=== PATIENT | male | born 1980 | race Caucasian/White ===

== ENCOUNTER → 2021-02-01 14:36 | Outpatient (CLI) | payer OTHER, SELFPAY | PROVIDERS: Visit Provider Family Medicine | DX: E11.621 Type 2 diabetes mellitus with foot ulcer (principal); L97.512 Non-pressure chronic ulcer of other part of right foot with fat layer exposed; L97.511 Non-pressure chronic ulcer of other part of right foot limited to breakdown of skin; L97.521 Non-pressure chronic ulcer of other part of left foot limited to breakdown of skin; I87.2 Venous insufficiency (chronic) (peripheral); L97.321 Non-pressure chronic ulcer of left ankle limited to breakdown of skin; L08.9 Local infection of the skin and subcutaneous tissue, unspecified; F17.200 Nicotine dependence, unspecified, uncomplicated; F11.20 Opioid dependence, uncomplicated; Z79.4 Long term (current) use of insulin | CPT/HCPCS: 11042; 17250; 87070; 87075; 87077; 87186; 87205; 99204; 99214 ==

== ENCOUNTER → 2021-02-05 13:28 | Outpatient (CLI) | payer OTHER, SELFPAY | PROVIDERS: Visit Provider Family Medicine | DX: I87.2 Venous insufficiency (chronic) (peripheral) (principal); L97.511 Non-pressure chronic ulcer of other part of right foot limited to breakdown of skin; L97.321 Non-pressure chronic ulcer of left ankle limited to breakdown of skin; L97.521 Non-pressure chronic ulcer of other part of left foot limited to breakdown of skin | CPT/HCPCS: 29580 ==

== ENCOUNTER → 2021-02-12 13:53 | Outpatient (CLI) | payer OTHER, SELFPAY | PROVIDERS: Referring Provider Emergency Medicine; Visit Provider Family Medicine | DX: E11.621 Type 2 diabetes mellitus with foot ulcer (principal); L97.511 Non-pressure chronic ulcer of other part of right foot limited to breakdown of skin; L97.512 Non-pressure chronic ulcer of other part of right foot with fat layer exposed; L97.321 Non-pressure chronic ulcer of left ankle limited to breakdown of skin; L97.521 Non-pressure chronic ulcer of other part of left foot limited to breakdown of skin; I87.2 Venous insufficiency (chronic) (peripheral); L08.9 Local infection of the skin and subcutaneous tissue, unspecified; E11.40 Type 2 diabetes mellitus with diabetic neuropathy, unspecified; F11.20 Opioid dependence, uncomplicated; Z79.2 Long term (current) use of antibiotics; Z68.45 Body mass index [BMI] 70 or greater, adult; F17.200 Nicotine dependence, unspecified, uncomplicated | CPT/HCPCS: 11042; 99214 ==

== ENCOUNTER → 2021-02-19 10:10 | Outpatient (CLI) | payer OTHER, SELFPAY | PROVIDERS: Referring Provider Surgery; Visit Provider Family Medicine | DX: E11.621 Type 2 diabetes mellitus with foot ulcer (principal); L97.512 Non-pressure chronic ulcer of other part of right foot with fat layer exposed; L97.511 Non-pressure chronic ulcer of other part of right foot limited to breakdown of skin; L97.521 Non-pressure chronic ulcer of other part of left foot limited to breakdown of skin; I87.2 Venous insufficiency (chronic) (peripheral); L08.9 Local infection of the skin and subcutaneous tissue, unspecified; F11.20 Opioid dependence, uncomplicated; Z72.0 Tobacco use; R94.31 Abnormal electrocardiogram [ECG] [EKG]; I45.81 Long QT syndrome | CPT/HCPCS: 11042; 87070; 87075; 87077; 87205; 99214 ==

== ENCOUNTER → 2021-02-26 10:55 | Outpatient (CLI) | payer OTHER, SELFPAY | PROVIDERS: Referring Provider Emergency Medicine; Visit Provider Family Medicine | DX: E11.621 Type 2 diabetes mellitus with foot ulcer (principal); L97.512 Non-pressure chronic ulcer of other part of right foot with fat layer exposed; L97.511 Non-pressure chronic ulcer of other part of right foot limited to breakdown of skin; L97.521 Non-pressure chronic ulcer of other part of left foot limited to breakdown of skin; I87.2 Venous insufficiency (chronic) (peripheral); L97.321 Non-pressure chronic ulcer of left ankle limited to breakdown of skin; L08.9 Local infection of the skin and subcutaneous tissue, unspecified; F11.20 Opioid dependence, uncomplicated; R60.0 Localized edema; R94.31 Abnormal electrocardiogram [ECG] [EKG]; I45.81 Long QT syndrome; B37.2 Candidiasis of skin and nail; F17.200 Nicotine dependence, unspecified, uncomplicated | CPT/HCPCS: 11042; 87070; 87075; 87077; 87147; 87185; 87186; 87205; 99214 ==

== ENCOUNTER → 2021-03-06 13:29 | Outpatient (CLI) | payer OTHER, SELFPAY | PROVIDERS: Referring Provider Nurse Practitioner; Visit Provider Family Medicine | DX: E11.621 Type 2 diabetes mellitus with foot ulcer (principal); L97.512 Non-pressure chronic ulcer of other part of right foot with fat layer exposed; L97.511 Non-pressure chronic ulcer of other part of right foot limited to breakdown of skin; L97.521 Non-pressure chronic ulcer of other part of left foot limited to breakdown of skin; E11.40 Type 2 diabetes mellitus with diabetic neuropathy, unspecified; I87.2 Venous insufficiency (chronic) (peripheral); L97.321 Non-pressure chronic ulcer of left ankle limited to breakdown of skin; R60.0 Localized edema; I89.0 Lymphedema, not elsewhere classified; L08.9 Local infection of the skin and subcutaneous tissue, unspecified; B37.2 Candidiasis of skin and nail; B95.7 Other staphylococcus as the cause of diseases classified elsewhere; B95.2 Enterococcus as the cause of diseases classified elsewhere; E66.01 Morbid (severe) obesity due to excess calories; I45.81 Long QT syndrome; F12.90 Cannabis use, unspecified, uncomplicated; Z72.0 Tobacco use; Z79.4 Long term (current) use of insulin; Z68.42 Body mass index [BMI] 45.0-49.9, adult | CPT/HCPCS: 11042; 97597; 99213; 99214 ==

== ENCOUNTER → 2021-03-15 12:18 | Outpatient (CLI) | payer OTHER, SELFPAY | PROVIDERS: Referring Provider Nurse Practitioner; Visit Provider Family Medicine | DX: E11.621 Type 2 diabetes mellitus with foot ulcer (principal); L97.512 Non-pressure chronic ulcer of other part of right foot with fat layer exposed; L97.511 Non-pressure chronic ulcer of other part of right foot limited to breakdown of skin; L97.521 Non-pressure chronic ulcer of other part of left foot limited to breakdown of skin; E11.40 Type 2 diabetes mellitus with diabetic neuropathy, unspecified; I87.2 Venous insufficiency (chronic) (peripheral); L97.321 Non-pressure chronic ulcer of left ankle limited to breakdown of skin; R60.0 Localized edema; I89.0 Lymphedema, not elsewhere classified; B37.2 Candidiasis of skin and nail; E66.01 Morbid (severe) obesity due to excess calories; I45.81 Long QT syndrome; F12.90 Cannabis use, unspecified, uncomplicated; Z72.0 Tobacco use; Z79.4 Long term (current) use of insulin; Z79.891 Long term (current) use of opiate analgesic; Z68.42 Body mass index [BMI] 45.0-49.9, adult | CPT/HCPCS: 11042; 11045; 87070; 87075; 87077; 87186; 87205; 97607 ==

== ENCOUNTER 2021-03-20 04:59 | Inpatient (IN) | payer MEDICAID, SELFPAY ==
[2021-03-20 05:17] VITALS: BP 174/79; PULSE 97; RESP 18; TEMP 36.5; O2SAT 97; BMI 44.9
--- NOTE | 2021-03-20 05:26 | ED.GENADULT ---
HPI - General Adult <Aubree Rodriguez MD - Last Filed: 03/21/21 07:33> General Chief complaint: Extremity Problem,Nontraumatic Stated complaint: redness/swollen/hot on left leg since sat Time Seen by Provider: 03/20/21 05:14 Source: patient Mode of arrival: Ambulatory Limitations: no limitations History of Present Illness HPI narrative: 41-year-old gentleman with a complicated medical history consisting of type 2 diabetes on insulin, recurrent cellulitis lower extremities with chronic venous stasis changes currently has a wound VAC in place on his right leg and venous stasis ulcer on his left leg and is anticipating venous surgery in April of this year. He has had recurrent episodes of cellulitis and at the end of January was treated with a course of Levaquin 2 weeks later amoxicillin and doxycycline and 2 days ago was started on cefdinir. He has had 1 full day of cefdinir and notes that he is having increasing pain swelling and redness in the left thigh. He reports this was what happened on the right side that led to the severe wound currently being treated with a wound VAC. he reports that his blood sugars actually have been doing well over the past week with all sugars under 200. He is currently being followed by Dr. Nicholson at the wound care clinic. His primary care physician is Dr. Young at the residency clinic in [place]. Related Data Home Medications Medication Instructions Recorded Confirmed empagliflozin 25 mg tablet 25 mg PO DAILY 03/20/21 03/20/21 (Jardiance) insulin glargine 100 unit/mL (3 40 unit SUBCUT BID 03/20/21 03/20/21 mL) subcutaneous pen (Lantus Solostar U-100 Insulin) lisinopril 20 mg tablet 20 mg PO DAILY 03/20/21 03/20/21 metformin 1,000 mg tablet 1,000 mg PO DAILY 03/20/21 03/20/21 methadone 10 mg tablet 115 mg PO DAILY 03/20/21 03/20/21 topiramate 25 mg tablet 50 mg PO DAILY 03/20/21 03/20/21 Allergies Allergy/AdvReac Type Severity Reaction Status Date / Time iodine Allergy Verified 03/20/21 05:22 Review of Systems <Aubree Rodriguez MD - Last Filed: 03/21/21 07:33> Review of Systems Narrative: Pertinent positive and negative findings as per HPI Remainder of review of systems is otherwise unremarkable for Constitutional: Fevers, chills, weakness ENT: No sore throat, neck pain, ear pain CV: Chest pain, palpitations, Respiratory: Cough, wheeze, dyspnea GI: Nausea, vomiting, diarrhea, : Dysuria, hematuria, Patient History <Aubree Rodriguez MD - Last Filed: 03/21/21 07:33> Medical History (Updated 03/20/21 @ 18:53 by Alissa Gentile MD) Chronic venous hypertension with ulcer Chronic, continuous use of opioids Obesity Type 2 diabetes mellitus Family History (Updated 03/20/21 @ 18:55 by Alissa Gentile MD) Mother Breast cancer Father Diabetes mellitus Social History household members: other Smoking Status: Current every day smoker alcohol intake: former Smoking Status: Current every day smoker alcohol intake frequency: 0-2 drinks per day Substance Use Type: does not use Exam <Aubree Rodriguez MD - Last Filed: 03/21/21 07:33> Narrative Exam Narrative: General: Chronically ill-appearing but in no acute distress. Morbidly obese. HEENT: Moist mucous membranes, normal sclera with reactive pupils, Neck: No JVD, supple Respiratory: Lungs are clear to auscultation, no wheezing no rales no rhonchi. Full and symmetrical air movement Cardiac: Regular rate and rhythm no murmurs no bruits Abdomen: Soft, nontender, good bowel tones, no flank pain Skin: Expanding erythema with painful swelling in the left thigh. Neurologic: Grossly neurologically intact with no obvious asymmetries or abnormalities Extremities: No trauma, well perfusedChronic venous stasis changes bilaterally with wound care wrappings both lower extremities and compression sock on the left lower extremity. Psych: Cooperative, appropriate insight and affect Initial Vital Signs Initial Vital Signs: Vital Signs Temperature 97.7 F 03/20/21 05:17 Pulse Rate 97 H 03/20/21 05:17 Respiratory Rate 18 03/20/21 05:17 Blood Pressure 174/79 H 03/20/21 05:17 Pulse Oximetry 97 03/20/21 05:17 <Ute Perez DO - Last Filed: 03/20/21 18:46> Initial Vital Signs Initial Vital Signs: Vital Signs Temperature 97.7 F 03/20/21 05:17 Pulse Rate 97 H 03/20/21 05:17 Respiratory Rate 18 03/20/21 05:17 Blood Pressure 174/79 H 03/20/21 05:17 Pulse Oximetry 97 03/20/21 05:17 Course <Aubree Rodriguez MD - Last Filed: 03/21/21 07:33> Orders Ordered: Acetaminophen (Acetaminophen 325 Mg Tablet) 650 mg PO Q6HR PRN PRN Reason: Fever/Mild Pain (1-3) Last Admin: 03/20/21 23:53 Dose: 650 mg Documented by: LADY Al Hydrox/Mg Hydrox/Simethicone (Mag Hydrox/Alum/Simeth 30 Ml Udc) 30 ml PO Q6HR PRN PRN Reason: Dyspepsia Bisacodyl (Bisacodyl 10 Mg Supp) 10 mg MO DAILY PRN PRN Reason: Constipation Dextrose (Dextrose 50 % In Water 25 Gm/50 Ml Syringe) 25 gm IV PRN PRN PRN Reason: Hypoglycemia Docusate Sodium (Docusate 100 Mg Capsule) 100 mg PO BID [facility] Last Admin: 03/20/21 20:59 Dose: Not Given Documented by: PALMER Enoxaparin Sodium (Enoxaparin 40 Mg/0.4 Ml Syringe) 40 mg SUBCUT DAILY [facility] Lactated Ringer's (Lactated Ringers) 1,000 mls @ 100 mls/hr IV CONT [facility] Last Admin: 03/20/21 17:14 Dose: 100 mls/hr Documented by: PALMER Ceftriaxone Sodium 2,000 mg/ (Sodium Chloride) 100 mls @ 200 mls/hr IV Q24H [facility] Insulin Glargine (Insulin Glargine 100 Unit/Ml 3ml Pen) 40 unit SUBCUT BID [facility] Last Admin: 03/20/21 21:00 Dose: 40 unit Documented by: PALMER Cosigned by: ERIC Insulin Human Lispro (Insulin Lispro 100 Unit/Ml 3ml Vial) 0 unit SUBCUT [facility]; Protocol Lisinopril (Lisinopril 20 Mg Tablet) 20 mg PO DAILY [facility] Magnesium Hydroxide (Magnesium Hydroxide 30 Ml Udc) 30 ml PO DAILY PRN PRN Reason: Constipation Metformin HCl (Metformin Hcl 500 Mg Tablet) 1,000 mg PO 0800 [facility] Methadone HCl (Methadone 10 Mg Tablet) 115 mg PO DAILY [facility] Naloxone HCl (Naloxone 0.4 Mg/Ml Vial) 0.2 mg IV Q2MIN PRN PRN Reason: Opiate Reversal Ondansetron HCl (Ondansetron 4 Mg/2 Ml Inj) 4 mg IV Q8HR PRN PRN Reason: Nausea And Vomiting Topiramate (Topiramate 25 Mg Tablet) 50 mg PO DAILY AMANDA Discontinued Medications Ceftriaxone Sodium 2,000 mg/ (Sodium Chloride) 100 mls @ 200 mls/hr IV NOW ONE Stop: 03/20/21 05:37 Last Infusion: 03/20/21 07:19 Dose: 0 mls/hr Documented by: Admin: 03/20/21 06:37 Dose: 200 mls/hr Documented by: BABITA Methadone HCl (Methadone 5 Mg Tablet) 115 mg PO NOW ONE Stop: 03/20/21 07:44 Last Admin: 03/20/21 08:41 Dose: 115 mg Documented by: GINA Vital Signs Vital signs: Vital Signs - 8 hr 03/20/21 05:17 Temperature 97.7 F Pulse Rate 97 H Respiratory Rate 18 Blood Pressure 174/79 H Pulse Oximetry 97 <Ute Perez, - Last Filed: 03/20/21 18:46> Orders Ordered: Acetaminophen (Acetaminophen 325 Mg Tablet) 650 mg PO Q6HR PRN PRN Reason: Fever/Mild Pain (1-3) Last Admin: 03/20/21 23:53 Dose: 650 mg Documented by: LADY Al Hydrox/Mg Hydrox/Simethicone (Mag Hydrox/Alum/Simeth 30 Ml Udc) 30 ml PO Q6HR PRN PRN Reason: Dyspepsia Bisacodyl (Bisacodyl 10 Mg Supp) 10 mg MO DAILY PRN PRN Reason: Constipation Dextrose (Dextrose 50 % In Water 25 Gm/50 Ml Syringe) 25 gm IV PRN PRN PRN Reason: Hypoglycemia Docusate Sodium (Docusate 100 Mg Capsule) 100 mg PO BID [facility] Last Admin: 03/20/21 20:59 Dose: Not Given Documented by: PALMER Enoxaparin Sodium (Enoxaparin 40 Mg/0.4 Ml Syringe) 40 mg SUBCUT DAILY AMANDA Lactated Ringer's (Lactated Ringers) 1,000 mls @ 100 mls/hr IV CONT AMANDA Last Admin: 03/20/21 17:14 Dose: 100 mls/hr Documented by: PALMER Ceftriaxone Sodium 2,000 mg/ (Sodium Chloride) 100 mls @ 200 mls/hr IV Q24H [facility] Insulin Glargine (Insulin Glargine 100 Unit/Ml 3ml Pen) 40 unit SUBCUT BID AMANDA Last Admin: 03/20/21 21:00 Dose: 40 unit Documented by: PALMER Cosigned by: ERIC Insulin Human Lispro (Insulin Lispro 100 Unit/Ml 3ml Vial) 0 unit SUBCUT ACHS AMANDA; Protocol Lisinopril (Lisinopril 20 Mg Tablet) 20 mg PO DAILY [facility] Magnesium Hydroxide (Magnesium Hydroxide 30 Ml Udc) 30 ml PO DAILY PRN PRN Reason: Constipation Metformin HCl (Metformin Hcl 500 Mg Tablet) 1,000 mg PO 0800 AMANDA Methadone HCl (Methadone 10 Mg Tablet) 115 mg PO DAILY [facility] Naloxone HCl (Naloxone 0.4 Mg/Ml Vial) 0.2 mg IV Q2MIN PRN PRN Reason: Opiate Reversal Ondansetron HCl (Ondansetron 4 Mg/2 Ml Inj) 4 mg IV Q8HR PRN PRN Reason: Nausea And Vomiting Topiramate (Topiramate 25 Mg Tablet) 50 mg PO DAILY [facility] Discontinued Medications Ceftriaxone Sodium 2,000 mg/ (Sodium Chloride) 100 mls @ 200 mls/hr IV NOW ONE Stop: 03/20/21 05:37 Last Infusion: 03/20/21 07:19 Dose: 0 mls/hr Documented by: Admin: 03/20/21 06:37 Dose: 200 mls/hr Documented by: BABITA Methadone HCl (Methadone 5 Mg Tablet) 115 mg PO NOW ONE Stop: 03/20/21 07:44 Last Admin: 03/20/21 08:41 Dose: 115 mg Documented by: GINA Vital Signs Vital signs: Vital Signs - 8 hr 03/20/21 05:17 Temperature 97.7 F Pulse Rate 97 H Respiratory Rate 18 Blood Pressure 174/79 H Pulse Oximetry 97 Medical Decision Making <Aubree Rodriguez MD - Last Filed: 03/21/21 07:33> Lab Data Lab results narrative: Deep culture of his right-sided lower extremity wound from January 29, 2021 shows E coli that is resistant to ampicillin intermediately resistant to ampicillin sulbactam and resistant to trimethoprim sulfamethoxazole. Sensitive to all others including ceftriaxone ciprofloxacin Zosyn gentamicin ertapenem and meropenem. Result diagrams: 03/20/21 17:30 03/20/21 17:30 Labs: Lab Results 03/20/21 03/20/21 03/20/21 Range/Units 05:40 05:40 05:40 WBC 4.5 (4.5-11.0) X10^3/uL RBC 3.75 L (4.5-5.9) X10^6/uL Hgb 10.1 L (13.5-17.5) g/dL Hct 30.8 L (41-53) % MCV 82.3 (80-100) fL MCH 26.9 (26-34) PG MCHC 32.8 (30-36) % RDW 16.0 H (11.6-14.8) % Plt Count 119 L (150-400) X10^3/uL Neut % (Auto) 69.5 (50-75) % Lymph % (Auto) 18.0 L (25-40) % Collier % (Auto) 11.0 (3-14) % Eos % (Auto) 1.1 L (2-4) % Baso % (Auto) 0.4 (0-2) % Neut # (Auto) 3100 (5745-1690) /uL Lymph # (Auto) 800 L (2929-7223) /uL Collier # (Auto) 500 (0-900) /uL Eos # (Auto) 0 (0-450) /uL Baso # (Auto) 0 (0-100) /uL Sodium 136 L (137-145) mmol/L Potassium 3.6 (3.4-5.1) mmol/L Chloride 103 (98-107) mmol/L Carbon Dioxide 25 (22-32) mmol/L BUN 16 (9-20) mg/dL Creatinine 0.59 L (0.66-1.25) mg/dL Estimated GFR > 60.0 (>60) mL/min BUN/Creatinine Ratio 27.1 H (6-22) Glucose 155 H (70-100) mg/dL Lactate 1.4 (0.7-2.1) mmol/L Calcium 9.0 (8.4-10.2) mg/dL Magnesium (1.6-2.3) mg/dL Total Bilirubin 0.9 (0.2-1.3) mg/dL AST 45 (17-59) IU/L ALT 43 (<50) IU/L Alkaline Phosphatase 116 (38-126) U/L Total Protein 7.7 (6.3-8.2) g/dL Albumin 3.6 (3.5-5.0) g/dL Globulin 4.1 (1.7-4.1) g/dL Albumin/Globulin Ratio 0.9 L (1.0-2.8) SARS-CoV-2 (PCR) (Negative) 03/20/21 03/20/21 Range/Units 05:40 07:45 WBC (4.5-11.0) X10^3/uL RBC (4.5-5.9) X10^6/uL Hgb (13.5-17.5) g/dL Hct (41-53) % MCV (80-100) fL MCH (26-34) PG MCHC (30-36) % RDW (11.6-14.8) % Plt Count (150-400) X10^3/uL Neut % (Auto) (50-75) % Lymph % (Auto) (25-40) % Collier % (Auto) (3-14) % Eos % (Auto) (2-4) % Baso % (Auto) (0-2) % Neut # (Auto) (6315-3806) /uL Lymph # (Auto) (2641-2591) /uL Collier # (Auto) (0-900) /uL Eos # (Auto) (0-450) /uL Baso # (Auto) (0-100) /uL Sodium (137-145) mmol/L Potassium (3.4-5.1) mmol/L Chloride (98-107) mmol/L Carbon Dioxide (22-32) mmol/L BUN (9-20) mg/dL Creatinine (0.66-1.25) mg/dL Estimated GFR (>60) mL/min BUN/Creatinine Ratio (6-22) Glucose (70-100) mg/dL Lactate (0.7-2.1) mmol/L Calcium (8.4-10.2) mg/dL Magnesium 1.7 (1.6-2.3) mg/dL Total Bilirubin (0.2-1.3) mg/dL AST (17-59) IU/L ALT (<50) IU/L Alkaline Phosphatase (38-126) U/L Total Protein (6.3-8.2) g/dL Albumin (3.5-5.0) g/dL Globulin (1.7-4.1) g/dL Albumin/Globulin Ratio (1.0-2.8) SARS-CoV-2 (PCR) Negative (Negative) <Ute Perez, DO - Last Filed: 03/20/21 18:46> Lab Data Labs: Lab Results 03/20/21 03/20/21 03/20/21 Range/Units 05:40 05:40 05:40 WBC 4.5 (4.5-11.0) X10^3/uL RBC 3.75 L (4.5-5.9) X10^6/uL Hgb 10.1 L (13.5-17.5) g/dL Hct 30.8 L (41-53) % MCV 82.3 (80-100) fL MCH 26.9 (26-34) PG MCHC 32.8 (30-36) % RDW 16.0 H (11.6-14.8) % Plt Count 119 L (150-400) X10^3/uL Neut % (Auto) 69.5 (50-75) % Lymph % (Auto) 18.0 L (25-40) % Collier % (Auto) 11.0 (3-14) % Eos % (Auto) 1.1 L (2-4) % Baso % (Auto) 0.4 (0-2) % Neut # (Auto) 3100 (0709-0639) /uL Lymph # (Auto) 800 L (7127-4292) /uL Collier # (Auto) 500 (0-900) /uL Eos # (Auto) 0 (0-450) /uL Baso # (Auto) 0 (0-100) /uL Sodium 136 L (137-145) mmol/L Potassium 3.6 (3.4-5.1) mmol/L Chloride 103 (98-107) mmol/L Carbon Dioxide 25 (22-32) mmol/L BUN 16 (9-20) mg/dL Creatinine 0.59 L (0.66-1.25) mg/dL Estimated GFR > 60.0 (>60) mL/min BUN/Creatinine Ratio 27.1 H (6-22) Glucose 155 H (70-100) mg/dL Lactate 1.4 (0.7-2.1) mmol/L Calcium 9.0 (8.4-10.2) mg/dL Magnesium (1.6-2.3) mg/dL Total Bilirubin 0.9 (0.2-1.3) mg/dL AST 45 (17-59) IU/L ALT 43 (<50) IU/L Alkaline Phosphatase 116 (38-126) U/L Total Protein 7.7 (6.3-8.2) g/dL Albumin 3.6 (3.5-5.0) g/dL Globulin 4.1 (1.7-4.1) g/dL Albumin/Globulin Ratio 0.9 L (1.0-2.8) SARS-CoV-2 (PCR) (Negative) 03/20/21 03/20/21 Range/Units 05:40 07:45 WBC (4.5-11.0) X10^3/uL RBC (4.5-5.9) X10^6/uL Hgb (13.5-17.5) g/dL Hct (41-53) % MCV (80-100) fL MCH (26-34) PG MCHC (30-36) % RDW (11.6-14.8) % Plt Count (150-400) X10^3/uL Neut % (Auto) (50-75) % Lymph % (Auto) (25-40) % Collier % (Auto) (3-14) % Eos % (Auto) (2-4) % Baso % (Auto) (0-2) % Neut # (Auto) (8090-2540) /uL Lymph # (Auto) (2550-3374) /uL Collier # (Auto) (0-900) /uL Eos # (Auto) (0-450) /uL Baso # (Auto) (0-100) /uL Sodium (137-145) mmol/L Potassium (3.4-5.1) mmol/L Chloride (98-107) mmol/L Carbon Dioxide (22-32) mmol/L BUN (9-20) mg/dL Creatinine (0.66-1.25) mg/dL Estimated GFR (>60) mL/min BUN/Creatinine Ratio (6-22) Glucose (70-100) mg/dL Lactate (0.7-2.1) mmol/L Calcium (8.4-10.2) mg/dL Magnesium 1.7 (1.6-2.3) mg/dL Total Bilirubin (0.2-1.3) mg/dL AST (17-59) IU/L ALT (<50) IU/L Alkaline Phosphatase (38-126) U/L Total Protein (6.3-8.2) g/dL Albumin (3.5-5.0) g/dL Globulin (1.7-4.1) g/dL Albumin/Globulin Ratio (1.0-2.8) SARS-CoV-2 (PCR) Negative (Negative) MDM Narrative Medical decision making narrative: I received sign-out from Dr. Austin, I have seen evaluated patient myself. He is resting comfortably. He has chronic ongoing wounds in both lower extremities right leg has wound VAC left heel there is a blister toes are covered in bandages. Left thigh is erythematous almost circumferential. He required admission to the hospital with IV antibiotics in July. He has history of drug-resistant bacteria, insulin-dependent diabetes, hypertension, chronic hepatitis-C chronic opiate use and liver cirrhosis. He is followed by wound care I believe here in [place] but unable to access those records. Left thigh is the new infection that is quite erythematous. Started 2 days ago and got significantly worse very quickly. He has 1 full day of cefdinir but was previously on multiple antibiotics. He is at high risk for worsening infection and drug resistance. He does not meet severe sepsis criteria he has no leukocytosis or fever. He is given his daily dose of methadone of 115 mg, now resting comfortably. Patient is admitted to Dr. gentile. Discharge Plan Departure Patient Disposition: Admitted As Inpatient Clinical Impression: Cellulitis Qualifiers: Site of cellulitis: extremity Site of cellulitis of extremity: lower extremity Laterality: left Qualified Code(s): L03.116 - Cellulitis of left lower limb Admit Date/Time: 03/20/21 09:23 Admit Provider: Alissa Gentile
[2021-03-20 05:57] LABS: Add Manual Diff / Slide Review NO; Basophils Absolute Auto 0 /uL (0-100); Basophils Percent Auto 0.4 % (0-2); Eosinophils Absolute Auto 0 /uL (0-450); Eosinophils Percent Auto 1.1 % (2-4); Hematocrit 30.8 % (41-53); Hemoglobin 10.1 g/dL (13.5-17.5); Lymphocytes Absolute Auto 800 /uL (1100-4500); Mean Corpuscular HGB Conc 32.8 % (30-36); Mean Corpuscular Hemoglobin 26.9 PG (26-34); Mean Corpuscular Volume 82.3 fL (80-100); Monocytes Absolute Auto 500 /uL (0-900); Neutrophils Absolute Auto 3100 /uL (1500-7000); Neutrophils Percent Auto 69.5 % (50-75); Platelet Count 119 X10^3/uL (150-400); Red Blood Cell Count 3.75 X10^6/uL (4.5-5.9); White Blood Cell Count 4.5 X10^3/uL (4.5-11.0)
[2021-03-20 06:01] LABS: Lactate (Lactic Acid) 1.4 mmol/L (0.7-2.1); Magnesium 1.7 mg/dL (1.6-2.3)
[2021-03-20 06:02] LABS: Alanine Aminotransferase 43 IU/L (<50); Albumin 3.6 g/dL (3.5-5.0); Albumin Globulin Ratio 0.9 (1.0-2.8); Alkaline Phosphatase 116 U/L (38-126); Aspartate Aminotransferase 45 IU/L (17-59); BUN Creatinine Ratio 27.1 (6-22); Bilirubin Total 0.9 mg/dL (0.2-1.3); Blood Urea Nitrogen 16 mg/dL (9-20); Carbon Dioxide 25 mmol/L (22-32); Chloride 103 mmol/L (98-107); Estimated Glomerular Filt Rate > 60.0 mL/min (>60); Globulin 4.1 g/dL (1.7-4.1); Glucose 155 mg/dL (70-100); HEMOLYSIS < 15 (0-50); Potassium 3.6 mmol/L (3.4-5.1); Sodium 136 mmol/L (137-145); Total Protein 7.7 g/dL (6.3-8.2)
[2021-03-20] MEDS: cefTRIAXone 2,000 MG in SODIUM CHLORIDE 0.9% 100 ML 200 ML IV (06:37)
[2021-03-20 08:41] LABS: COVID19 - ADMIT (NP swab/PCR) Negative (Negative)
[2021-03-20] MEDS: METHADONE 5 MG TABLET 115 MG PO (08:41)
[2021-03-20 10:28] VITALS: BP 141/68; PULSE 80; RESP 16; O2SAT 96
--- NOTE | 2021-03-20 11:29 | PC.NURSE ---
Addendum entered by Magi Nieto R.N. 03/20/21 11:41: Call light in reach. Calm and cooperative with care. Original Note: Day shift: Pt on AC unit from ED at approx 1130. He is A&Ox4. VS WNL. RA 98%. RLE has woundV-vac set up and is wrapped w/ Curlex. Dressings on bilat toes. LLE at foot/ankle area has dressing on it as well. Pt reports that he goes to the wound clinic once per week. Left upper thigh area is red. Pt reports that this looks a little better already. Oriented to room and call light. Denies any nausea or chest pain. Call light in rech.
[2021-03-20 11:30] VITALS: BP 134/75; PULSE 86; RESP 18; TEMP 36.1; O2SAT 99
--- NOTE | 2021-03-20 11:52 | DIET.CONS ---
Dietary Consultation Note RD Note: Kitchen sending ONS Lamberto bid to support wound healing in this pt who attends wound care at .
[2021-03-20 12:32] VITALS: BMI 44.9
--- NOTE | 2021-03-20 14:12 | PC.NURSE ---
Took patients bloodsugar at around 12:00 and it was 145
[2021-03-20 16:45] VITALS: BP 119/70; PULSE 83; RESP 17; TEMP 36.7; O2SAT 99
[2021-03-20] MEDS: LACTATED RINGERS 1,000 ML 100 ML IV (17:14)
[2021-03-20 17:36] LABS: Add Manual Diff / Slide Review NO; Basophils Absolute Auto 0 /uL (0-100); Basophils Percent Auto 0.4 % (0-2); Eosinophils Absolute Auto 100 /uL (0-450); Hematocrit 31.5 % (41-53); Hemoglobin 10.4 g/dL (13.5-17.5); Lymphocytes Absolute Auto 900 /uL (1100-4500); Lymphocytes Percent Auto 15.2 % (25-40); Mean Corpuscular HGB Conc 33.2 % (30-36); Mean Corpuscular Hemoglobin 27.2 PG (26-34); Monocytes Absolute Auto 700 /uL (0-900); Monocytes Percent Auto 12.7 % (3-14); Neutrophils Absolute Auto 4100 /uL (1500-7000); Neutrophils Percent Auto 70.7 % (50-75); Platelet Count 124 X10^3/uL (150-400); Red Blood Cell Count 3.84 X10^6/uL (4.5-5.9); Red Cell Distribution Width 15.7 % (11.6-14.8); White Blood Cell Count 5.7 X10^3/uL (4.5-11.0)
--- NOTE | 2021-03-20 17:43 | PC.NURSE ---
Changed dressing on L foot/ankle as previous dressing was falling off. Used sterile water to flush wounds and applied allevyn dressing and compression sock over it.
[2021-03-20 17:52] LABS: BUN Creatinine Ratio 23.3 (6-22); Blood Urea Nitrogen 14 mg/dL (9-20); Calcium 8.8 mg/dL (8.4-10.2); Carbon Dioxide 29 mmol/L (22-32); Chloride 100 mmol/L (98-107); Estimated Glomerular Filt Rate > 60.0 mL/min (>60); Glucose 118 mg/dL (70-100); HEMOLYSIS < 15 (0-50); Potassium 3.9 mmol/L (3.4-5.1); Sodium 135 mmol/L (137-145)
[2021-03-20 18:06] LABS: Cholesterol 115 mg/dL (140-199); HDL Cholesterol 20 mg/dL (40-60); LDL Cholesterol Calculated 60 mg/dL (<100); Triglycerides 175 mg/dL (35-150)
--- NOTE | 2021-03-20 18:51 | P.HP_ITS ---
History of Present Illness History of Present Illness Chief complaint: redness/swollen/hot on left leg since sat Narrative: Shaka Kaiser is a 41-year-old male with type 2 diabetes, hypertension, opiate dependence who has chronic lower extremity ulcers and multiple wounds. He is currently being followed by Dr. schmidt at the wound can not. The patient has a left malleolar ulcer which has been followed and cultured. He was given antibiotics to be started on Friday. Patient notes that he developed swelling redness and warmth of the left thigh. He noted that the redness and warmth go progressively worse despite taking antibiotics. As he has had multiple infections the patient presented to the emergency room for evaluation. In the emergency room the patient was found to have a significant area of erythema on the upper thigh trachea seeing up the thigh which was warm and tender. He has had no fever. No nausea no vomiting. He has no shortness of breath. The patient has a little boot on the right lower extremity with a wound VAC for chronic ulcer on the right leg. He currently has a left malleolar ulcer as well which is improving. Patient was admitted to the hospital for progressive cellulitis. Patient History Medical History (Updated 03/20/21 @ 18:53 by Alissa Gentile MD) Chronic venous hypertension with ulcer Chronic, continuous use of opioids Obesity Type 2 diabetes mellitus Family & Social History Family History (Updated 03/20/21 @ 18:54 by Alissa Gentile MD) Mother Breast cancer Father Diabetes mellitus Social History: household members other Prior Living Arrangements Apartment/Condo Safety & Behavioral: Feels Safe in Current Yes Environment Been Physically Hurt or No Threatened By a Person Suicidal Ideation Description None Suicide Plan Description No Plan Tobacco & Substance use: Tobacco type cigarettes Smoking Status Current every day smoker Smoking packs per day 0.25 alcohol intake former alcohol intake frequency other Substance Use Type does not use Meds Home Medications and Allergies Home Medications Medication Instructions Recorded Confirmed Type empagliflozin 25 mg tablet 25 mg PO DAILY 03/20/21 03/20/21 History (Jardiance) insulin glargine 100 unit/mL (3 40 unit SUBCUT BID 03/20/21 03/20/21 History mL) subcutaneous pen (Lantus Solostar U-100 Insulin) lisinopril 20 mg tablet 20 mg PO DAILY 03/20/21 03/20/21 History metformin 1,000 mg tablet 1,000 mg PO DAILY 03/20/21 03/20/21 History methadone 10 mg tablet 115 mg PO DAILY 03/20/21 03/20/21 History topiramate 25 mg tablet 50 mg PO DAILY 03/20/21 03/20/21 History Allergies Allergy/AdvReac Type Severity Reaction Status Date / Time iodine Allergy Verified 03/20/21 05:22 Review of Systems Review of Systems Narrative: 10 point review of systems is negative Exam Vital Signs (past 8 hours): - 03/20/21 11:30 03/20/21 16:45 Temperature 97.0 F L 98.1 F Pulse Rate 86 83 Respiratory Rate 18 17 Blood Pressure 134/75 119/70 Pulse Oximetry 99 99 Oxygen Delivery Method Room Air Narrative Exam Narrative: pleasant male resting comfortably in no obvious distress HENIL Other: normocephalic atraumatic, extraocular muscles are intact, oropharynx is clear, neck is supple without adenopathy Resp Other: lungs: Clear to auscultation Cardio Other: cardiac exam: Regular rate and rhythm normal S1-S2 GI Other: abdomen: Soft nontender nondistended Neuro Other: neuro exam neuro exam is nonfocal Extrem Other: extremities: Right lower extremity with Unna boot in place, wound VAC in place as well, left lower extremity with a left malleolar ulcer, the left thigh with a large area of cellulitis from the mid thigh on the medial portion and lateral portion warm tender and tracing upward Objective Labs Result Diagrams: 03/20/21 17:30 03/20/21 17:30 Labs: Laboratory Results - last 24 hr 03/20/21 03/20/21 03/20/21 05:40 05:40 05:40 WBC 4.5 RBC 3.75 L Hgb 10.1 L Hct 30.8 L MCV 82.3 MCH 26.9 MCHC 32.8 RDW 16.0 H Plt Count 119 L Neut % (Auto) 69.5 Lymph % (Auto) 18.0 L [place] % (Auto) 11.0 Eos % (Auto) 1.1 L Baso % (Auto) 0.4 Neut # (Auto) 3100 Lymph # (Auto) 800 L [place] # (Auto) 500 Eos # (Auto) 0 Baso # (Auto) 0 Sodium 136 L Potassium 3.6 Chloride 103 Carbon Dioxide 25 BUN 16 Creatinine 0.59 L Estimated GFR > 60.0 BUN/Creatinine Ratio 27.1 H Glucose 155 H Lactate 1.4 Calcium 9.0 Magnesium Total Bilirubin 0.9 AST 45 ALT 43 Alkaline Phosphatase 116 Total Protein 7.7 Albumin 3.6 Globulin 4.1 Albumin/Globulin Ratio 0.9 L Triglycerides Cholesterol LDL Cholesterol, Calc HDL Cholesterol SARS-CoV-2 (PCR) 03/20/21 03/20/21 03/20/21 05:40 07:45 17:30 WBC 5.7 RBC 3.84 L Hgb 10.4 L Hct 31.5 L MCV 82.0 MCH 27.2 MCHC 33.2 RDW 15.7 H Plt Count 124 L Neut % (Auto) 70.7 Lymph % (Auto) 15.2 L [place] % (Auto) 12.7 Eos % (Auto) 1.0 L Baso % (Auto) 0.4 Neut # (Auto) 4100 Lymph # (Auto) 900 L [place] # (Auto) 700 Eos # (Auto) 100 Baso # (Auto) 0 Sodium Potassium Chloride Carbon Dioxide BUN Creatinine Estimated GFR BUN/Creatinine Ratio Glucose Lactate Calcium Magnesium 1.7 Total Bilirubin AST ALT Alkaline Phosphatase Total Protein Albumin Globulin Albumin/Globulin Ratio Triglycerides Cholesterol LDL Cholesterol, Calc HDL Cholesterol SARS-CoV-2 (PCR) Negative 03/20/21 03/20/21 17:30 17:30 WBC RBC Hgb Hct MCV MCH MCHC RDW Plt Count Neut % (Auto) Lymph % (Auto) [place] % (Auto) Eos % (Auto) Baso % (Auto) Neut # (Auto) Lymph # (Auto) [place] # (Auto) Eos # (Auto) Baso # (Auto) Sodium 135 L Potassium 3.9 Chloride 100 Carbon Dioxide 29 BUN 14 Creatinine 0.60 L Estimated GFR > 60.0 BUN/Creatinine Ratio 23.3 H Glucose 118 H Lactate Calcium 8.8 Magnesium Total Bilirubin AST ALT Alkaline Phosphatase Total Protein Albumin Globulin Albumin/Globulin Ratio Triglycerides 175 H Cholesterol 115 L LDL Cholesterol, Calc 60 HDL Cholesterol 20 L SARS-CoV-2 (PCR) Assessment & Plan Assessment & Plan narrative: impression 1. 41-year-old male admitted to the hospital with acute cellulitis - patient has multiple risk factors including type 2 diabetes and chronic ve nous stasis insufficiency - he has multiple ulcerations of his lower extremities including a right lower extremity toe ulcer with a wound VAC in place an-d a little boot in place patient also has a left malleolar ulcer with a dressing in place as well - patient developed significant rapidly progressi ve left thigh cellulitis - continue IV antibiotics, given wound cultures will start ceftriaxone - will follow daily labs 2. type 2 diabetes - will continue his usual Lantus and metformin - patient to take his own Jardiance - will add sliding scale insulin as well 3. hypertension - continue lisinopril 4. chronic opiate dependent - continue methadone patient will be placed on DVT prophylaxis patient reports he is a full code, his mother is his surrogate decision maker patient will be admitted as an inpatient
[2021-03-20 20:45] VITALS: BP 129/57; PULSE 82; RESP 18; TEMP 36.2; O2SAT 96
[2021-03-20] MEDS: INSULIN GLARGINE 100 UNIT/ML 3ML PEN 40 UNIT SUBCUT (21:00)
--- NOTE | 2021-03-20 21:26 | PC.NURSE ---
Patient is getting blood sugars ACHS and only has lantus ordered, no sliding scale. Informed BUBBA Flowers that he does not have sliding scale ordered. Patient's blood sugar this evening was 136 and did receive his lantus of 40 units.
[2021-03-20] MEDS: ACETAMINOPHEN 325 MG TABLET 650 MG PO (23:53)
[2021-03-21] VITALS (7 sets, daily range): BP systolic 120–144; BP diastolic 52–84; PULSE 81–94; RESP 16–19; TEMP 36.1–36.9; O2SAT 96–97
--- NOTE | 2021-03-21 06:52 | PC.NURSE ---
223 Pt is indep in room, IV SL per pt request. Taking PO without difficulties. LE with multiple areas of weeping, dressings in place per skin documentation. Enc to elevate while in bed. Medicated with APAP for 5/10 discomfort. Indep to BR. Urinal at bedside. Toe dressings CDI, reports weekly changes done with wound clinic. Pt elevating LLE as able. Erythema receeded into border drawn on previous shift. Call light in reach.
[2021-03-21] MEDS: cefTRIAXone 2,000 MG in SODIUM CHLORIDE 0.9% 100 ML 200 ML IV (08:14)
[2021-03-21] MEDS: INSULIN LISPRO 100 UNIT/ML 3ML VIAL SUBCUT ×2 (08:26→12:15)
[2021-03-21] MEDS: lisinopriL 20 MG TABLET PO (08:27)
[2021-03-21] MEDS: DOCUSATE 100 MG CAPSULE PO (08:27)
[2021-03-21] MEDS: METHADONE 10 MG TABLET 115 MG PO (08:27)
[2021-03-21] MEDS: METFORMIN HCL 500 MG TABLET 1000 MG PO (08:27)
[2021-03-21] MEDS: TOPIRAMATE 25 MG TABLET 50 MG PO (08:28)
[2021-03-21] MEDS: INSULIN GLARGINE 100 UNIT/ML 3ML PEN 40 UNIT SUBCUT ×2 (08:29→21:35)
--- NOTE | 2021-03-21 14:41 | CM.DANOTE ---
DCP assessment: 41 YR old male who admitted for multiple leg wounds and thigh cellulites. CM met with patient briefly at bedside and explained role. patient was alert and oriented x4 at time of CM visit. patient is Independent at base line and drives... currently not driving due to wound vac and ulcers on legs and feet. patient currently is having ulcerations and wounds managed by Dr. schmidt. Patient has had a few failed OP ABX treatments and currently has wound vac on leg. Patient does not use any DME currently and is ambulating independently in hospital room. I [facility] and medicaid Plan: DC home with OP wound care continuing and Poss IV abx vrs PO ABX.... may need help with getting appointments started again with wound care prior to DC but does not currently have any DC planning needs at this time... IF patient is DC with IV abx will need that set up with either the infusion center or [facility] for OP IV therapy... but depends on if patient will need IV abx or can DC on PO. Tamica Ramirez RN, BSN Discharge Planning/Care Management Discharge Assessment Start: 03/21/21 14:35 Freq: Status: Active Protocol: Document 03/21/21 14:35 HS (Rec: 03/21/21 14:41 HS [id number]) Discharge Planning Assessment Assigned Vocational Rehabilitation Counselor Tamica Ramirez RN DPOA/Assigned Designee Name Katalina Huertas (mother) Contact Information [phone] Advance Directives? 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 Independent with ADL's Yes Is patient alert and oriented? Yes Caregiver for Another No Barriers to Discharge No Discharge Plan Home [facility] Wound Care Additional Comment [place] has multiple wounds that are being managed by Dr Saroj Godwin Updated in Patient Room with Yes name and ext. # of Vocational Rehabilitation Counselor Review Status In Process Next Review Type Continued Stay Review
--- NOTE | 2021-03-21 14:45 | P.PN_ITS ---
Subjective Subjective Interval history: 41-year-old male with type 2 diabetes admitted to the hospital for left lower extremity cellulitis. Patient has had improvement of his cellulitis. He continues to have some redness warmth and pain. Exam Vital Signs (past 8 hours): - 03/21/21 08:00 03/21/21 08:27 03/21/21 12:00 Temperature 97.0 F L 97.0 F L Pulse Rate 81 81 88 Respiratory Rate 17 19 Blood Pressure 137/64 137/64 126/73 Pulse Oximetry 96 97 Oxygen Delivery Method Room Air Oxygen Flow Rate 0 Narrative Exam Narrative: Pleasant gentleman in no obvious distress Resp Other: Lungs clear to auscultation Cardio Other: Cardiac exam: Regular rate and rhythm normal S1-S2 GI Other: Abdomen soft nontender nondistended Skin Other: Skin: Left thigh with decreasing erythema, some induration on the lateral aspect of the left thigh, redness on the right medial aspect, there is some warmth, induration, and tenderness, no fluctuance. It is slightly improved from yesterday Extrem Other: Right lower extremity and Unna boot, with a wound VAC in place, left malleolus with dressing in place Objective Labs Result Diagrams: 03/20/21 17:30 03/20/21 17:30 Labs: Laboratory Results - last 24 hr 03/20/21 03/20/21 03/20/21 17:30 17:30 17:30 WBC 5.7 RBC 3.84 L Hgb 10.4 L Hct 31.5 L MCV 82.0 MCH 27.2 MCHC 33.2 RDW 15.7 H Plt Count 124 L Neut % (Auto) 70.7 Lymph % (Auto) 15.2 L [place] % (Auto) 12.7 Eos % (Auto) 1.0 L Baso % (Auto) 0.4 Neut # (Auto) 4100 Lymph # (Auto) 900 L [place] # (Auto) 700 Eos # (Auto) 100 Baso # (Auto) 0 Sodium 135 L Potassium 3.9 Chloride 100 Carbon Dioxide 29 BUN 14 Creatinine 0.60 L Estimated GFR > 60.0 BUN/Creatinine Ratio 23.3 H Glucose 118 H Calcium 8.8 Triglycerides 175 H Cholesterol 115 L LDL Cholesterol, Calc 60 HDL Cholesterol 20 L [facility] Medical History (Updated 03/20/21 @ 18:53 by Alissa Gentile MD) Chronic venous hypertension with ulcer Chronic, continuous use of opioids Obesity Type 2 diabetes mellitus Family History (Updated 03/20/21 @ 18:55 by Alissa Gentile MD) Mother Breast cancer Father Diabetes mellitus Social History household members: other Smoking Status: Current every day smoker alcohol intake: former Assessment & Plan Assessment & Plan narrative: 41-year-old male admitted to the hospital with acute cellulitis - patient has multiple risk factors including type 2 diabetes and chronic venous stasis insufficiency - he has multiple ulcerations of his lower extremities including a right lower extremity toe ulcer with a wound ?VAC ?in place an-d a little boot in place patient also has a left malleolar ulcer with a dressing in place as well - patient developed significant rapidly progressive left thigh cellulitis - continue IV antibiotics, given wound cultures will start ceftriaxone - will follow daily labs -left leg improving, will continue IV antibiotics for now, if further decrease in the area and induration of the left leg consider switching to oral antibiotics tomorrow. -patient has chronic lower extremity ulcerations, is currently followed by the wound care with Dr. Lees, he has an appointment tomorrow with Dr. Dumont for wound dressing change. 2.? type 2 diabetes - will continue his usual Lantus and metformin - patient to take his own Jardiance - will add sliding scale insulin as well 3.? hypertension - continue lisinopril 4.? chronic opiate dependent - continue methadone ?patient will be placed on DVT prophylaxis Time Spent With Patient Critical Care time: I spent a total of [] minutes of critical care time on this patient's care today; this time is exclusive of procedural time.
[2021-03-21] MEDS: ACETAMINOPHEN 325 MG TABLET 650 MG PO (19:09)
[2021-03-22] VITALS (7 sets, daily range): BP systolic 107–131; BP diastolic 60–69; PULSE 70–85; RESP 16–20; TEMP 35.8–36.9; O2SAT 95–100
[2021-03-22] MEDS: ACETAMINOPHEN 325 MG TABLET 650 MG PO (01:16)
--- NOTE | 2021-03-22 03:16 | PC.NURSE ---
Pt A and O x 4, VSS. Pt states he feels he is having a reaction to the cefalazolin and wants to be on vancomycin again. He c/o pain 01/27 and took 650 mg APAP with some relief. Pt has been awake all noc shift on his computer. NO GI or issues and S1, S2. LS clear. Advised patient I would pass along request to change ABOs.
[2021-03-22] MEDS: cefTRIAXone 2,000 MG in SODIUM CHLORIDE 0.9% 100 ML 200 ML IV (06:07)
[2021-03-22] MEDS: lisinopriL 20 MG TABLET PO (08:07)
[2021-03-22] MEDS: METHADONE 10 MG TABLET 115 MG PO (08:07)
[2021-03-22] MEDS: TOPIRAMATE 25 MG TABLET 50 MG PO (08:07)
[2021-03-22] MEDS: METFORMIN HCL 500 MG TABLET 1000 MG PO (08:07)
[2021-03-22] MEDS: INSULIN GLARGINE 100 UNIT/ML 3ML PEN 40 UNIT SUBCUT ×2 (09:14→20:03)
[2021-03-22] MEDS: INSULIN LISPRO 100 UNIT/ML 3ML VIAL SUBCUT (12:10)
--- NOTE | 2021-03-22 16:39 | PC.NURSE ---
Spoke to Evan at wound care to discuss patient. Dressing changed on medial left ankle and superior right foot. Placed hydrablue and alleven placed to the right foot and alleven to the left ankle. Pt to call wound care clinic on Friday to follow up with Dr. Dumont.
--- NOTE | 2021-03-22 17:46 | PM.PN.1 ---
Subjective Subjective Date Patient Seen: 03/22/21 Time Patient Seen: 08:45 Interval history: 41-year-old male with type 2 diabetes admitted to the hospital for left lower extremity cellulitis. No substancial improvement today in swelling. Based on prior cultures daptomycin was added. Currently without fever, chest pain, nausea, vomiting, diarrhea. Exam Vital Signs (past 8 hours): - 03/22/21 12:00 03/22/21 16:00 Temperature 97.1 F L 96.4 F L Pulse Rate 84 78 Respiratory Rate 18 19 Blood Pressure 112/61 131/67 Pulse Oximetry 95 98 Oxygen Delivery Method Room Air Oxygen Flow Rate 0 Narrative Exam Narrative: Gen: Pleasant gentleman in no obvious distress Resp Other:?Lungs clear to auscultation Cardio Other:?Cardiac exam: Regular rate and rhythm normal S1-S2 GI Other:?Abdomen soft nontender nondistended Skin Other:?Skin:? Left thigh with stable erythema from prior areas of demarcation. Extrem Other:?Right lower extremity and Unna boot, with a wound VAC in place, left malleolus with dressing in place Objective Labs Result Diagrams: 03/20/21 17:30 03/20/21 17:30 COUNTS INCLUDE 234 BEDS AT THE [facility] Medical History (Updated 03/20/21 @ 18:53 by Alissa Gentile MD) Chronic venous hypertension with ulcer Chronic, continuous use of opioids Obesity Type 2 diabetes mellitus Family History (Updated 03/20/21 @ 18:55 by Alissa Gentile MD) Mother Breast cancer Father Diabetes mellitus Social History household members: other Smoking Status: Current every day smoker alcohol intake: former Assessment & Plan Assessment & Plan narrative: 1. acute cellulitis - patient has multiple risk factors including type 2 diabetes and chronic venous stasis insufficiency - he has multiple ulcerations of his lower extremities including a right lower extremity toe ulcer with a wound?VAC?in place an-d a little boot in place patient also has a left malleolar ulcer with a dressing in place as well - patient developed significant rapidly progressive left thigh cellulitis initially, stable on initial antibiotics, but added daptomycin today based on prior wound cultures as no siginificant improvement today. - will follow daily labs -patient has chronic lower extremity ulcerations, is currently followed by the wound care with Dr. Dumont 2.? type 2 diabetes - will continue his usual Lantus and metformin - patient to take his own Jardiance - will add sliding scale insulin as well 3.? hypertension - continue lisinopril 4.? chronic opiate dependent - continue methadone Code: Full DVT: lovenox daily COVID-19 COVID-19 status: Negative Time Spent With Patient Critical Care time: I spent a total of [] minutes of critical care time on this patient's care today; this time is exclusive of procedural time.
[2021-03-22] MEDS: DOCUSATE 100 MG CAPSULE PO (20:02)
[2021-03-23] VITALS: BP 125/61; PULSE 83; RESP 16; TEMP 36.3; O2SAT 100
[2021-03-23] MEDS: ACETAMINOPHEN 325 MG TABLET 650 MG PO ×2 (00:40→10:26)
[2021-03-23 04:00] VITALS: BP 111/57; PULSE 79; RESP 16; TEMP 36.1; O2SAT 99
[2021-03-23] MEDS: cefTRIAXone 2,000 MG in SODIUM CHLORIDE 0.9% 100 ML 200 ML IV (06:22)
[2021-03-23 07:55] VITALS: BP 91/38; PULSE 68; RESP 16; TEMP 36.1; O2SAT 97
[2021-03-23] MEDS: METHADONE 10 MG TABLET 115 MG PO (10:23)
[2021-03-23] MEDS: DOCUSATE 100 MG CAPSULE PO ×2 (10:28→20:54)
[2021-03-23] MEDS: TOPIRAMATE 25 MG TABLET 50 MG PO (10:28)
[2021-03-23] MEDS: METFORMIN HCL 500 MG TABLET 1000 MG PO (10:30)
[2021-03-23 12:10] VITALS: BP 117/63; PULSE 79; RESP 16; TEMP 36.6; O2SAT 97
[2021-03-23] MEDS: INSULIN LISPRO 100 UNIT/ML 3ML VIAL SUBCUT (13:12)
[2021-03-23 15:28] VITALS: BP 117/70; PULSE 74; RESP 20; TEMP 35.8
--- NOTE | 2021-03-23 15:34 | P.PN_ITS ---
Subjective Subjective Date Patient Seen: 03/23/21 Time Patient Seen: 15:35 Interval history: 41-year-old male with type 2 diabetes admitted to the hospital for left lower extremity cellulitis. No substancial improvement today in swelling. Based on prior cultures daptomycin was added yesterday. Currently without fever, chest pain, nausea, vomiting, diarrhea. Exam Vital Signs (past 8 hours): - 03/23/21 07:55 03/23/21 12:10 03/23/21 15:28 Temperature 96.9 F L 97.8 F 96.5 F L Pulse Rate 68 79 74 Respiratory Rate 16 16 20 Blood Pressure 91/38 L 117/63 117/70 Pulse Oximetry 97 97 Oxygen Delivery Method Room Air Oxygen Flow Rate 96 Narrative Exam Narrative: Gen: Pleasant gentleman in no obvious distress Resp Other:?Lungs clear to auscultation Cardio Other:?Cardiac exam: Regular rate and rhythm normal S1-S2 GI Other:?Abdomen soft nontender nondistended Skin Other:?Skin:? Left thigh with stable erythema from prior areas of demarcation. Extrem Other:?Right lower extremity and Unna boot, left malleolus with dressing in place Objective Labs Result Diagrams: 03/20/21 17:30 03/20/21 17:30 [facility] Medical History (Updated 03/20/21 @ 18:53 by Alissa Gentile MD) Chronic venous hypertension with ulcer Chronic, continuous use of opioids Obesity Type 2 diabetes mellitus Family History (Updated 03/20/21 @ 18:55 by Alissa Gentile MD) Mother Breast cancer Father Diabetes mellitus Social History household members: other Smoking Status: Current every day smoker alcohol intake: former Assessment & Plan Assessment & Plan narrative: 1. acute cellulitis - patient has multiple risk factors including type 2 diabetes and chronic venous stasis insufficiency - he has multiple ulcerations of his lower extremities including a right lower extremity toe ulcer with a wound?VAC?in place an-d a little boot in place patient also has a left malleolar ulcer with a dressing in place as well - patient developed significant rapidly progressive left thigh cellulitis initially, stable on initial antibiotics, but added daptomycin based on prior wound cultures as no siginificant improvement. -patient has chronic lower extremity ulcerations, is currently followed by the wound care with Dr. Dumont -consider repeat imaging tomorrow if no further improvement. check esr and crp. if markedly increased consider MRI to evaluate for possible osteomyelitis 2.? type 2 diabetes - will continue his usual Lantus and metformin - patient to take his own Jardiance - will add sliding scale insulin as well 3.? hypertension - continue lisinopril 4.? chronic opiate dependent - continue methadone Code: Full DVT: lovenox daily Time Spent With Patient Critical Care time: I spent a total of [] minutes of critical care time on this patient's care today; this time is exclusive of procedural time.
--- NOTE | 2021-03-23 15:58 | DIET.CONS ---
Dietary Consultation Note Admission Date: 03/20/2021 09:23 Assessment: 41 y/o M with T2DM and cellulitis of LE. States he was scheduled to see his initial DM ed visit this week at [facility]. Plans to reschedule after d/c. Not forth coming about DM dx or BG readings at home. Reports difficulty with stress management impacting his blood sugars. FBG reviewed with nursing and in range. RD cannot find recent HgA1c and pt not sure of recent labs. PO 75-100%. Pt amenable to Lamberto BID Ht: 187.96 cm Wt: 160 kg BMI: 44.9 UBW: Last BM: 03/22/21 (03/22/21 14:00) MNA: 14 Jerry Score: 21 Diet: 03/20/21 Lunch Carbohydrate Consistent Diet Diet Modifications: Iodine allergy Safety Tray needed?: No Carbohydrate level: Medium (3 CHO) Bedtime snack: Yes 03/20/21 Dinner Carbohydrate Consistent Diet Diet Modifications: Carbohydrate level: Large (4 CHO) Bedtime snack: Yes Percent of last meal consumed (last 48h) Percent Meal Consumed 100% 03/23/21 09:21 Percent Meal Consumed 75% 03/22/21 13:30 Percent Meal Consumed 100% 03/22/21 10:04 Percent Meal Consumed 100% 03/21/21 17:55 Labs: RBC 3.84 X10^6/uL (4.5-5.9) L 03/20/21 17:30 Hgb 10.4 g/dL (13.5-17.5) L 03/20/21 17:30 Hct 31.5 % (41-53) L 03/20/21 17:30 Creatinine 0.60 mg/dL (0.66-1.25) L 03/20/21 17:30 Lactate 1.4 mmol/L (0.7-2.1) 03/20/21 05:40 Nutrition Diagnosis: Increased nutrient needs r/t cellulitis of LE aeb diagnosis Interventions: 1. Diabetes education stress and BG 2. Lamberto BID Monitoring/Evaluations: BG, Lamberto tolerance
[2021-03-23 20:06] VITALS: BP 131/72; PULSE 74; RESP 20; TEMP 35.7; O2SAT 99
[2021-03-23] MEDS: INSULIN GLARGINE 100 UNIT/ML 3ML PEN 40 UNIT SUBCUT (20:53)
[2021-03-24] VITALS (7 sets, daily range): BP systolic 111–134; BP diastolic 54–78; PULSE 69–77; RESP 12–20; TEMP 36.2–36.7; O2SAT 94–99
[2021-03-24 05:13] LABS: Add Manual Diff / Slide Review NO; Basophils Absolute Auto 100 /uL (0-100); Basophils Percent Auto 1.4 % (0-2); Eosinophils Absolute Auto 100 /uL (0-450); Hemoglobin 10.1 g/dL (13.5-17.5); Lymphocytes Absolute Auto 1000 /uL (1100-4500); Lymphocytes Percent Auto 23.2 % (25-40); Mean Corpuscular HGB Conc 32.6 % (30-36); Mean Corpuscular Volume 82.9 fL (80-100); Monocytes Absolute Auto 400 /uL (0-900); Monocytes Percent Auto 8.2 % (3-14); Neutrophils Absolute Auto 2800 /uL (1500-7000); Neutrophils Percent Auto 65.2 % (50-75); Platelet Count 182 X10^3/uL (150-400); Red Blood Cell Count 3.74 X10^6/uL (4.5-5.9); Red Cell Distribution Width 15.8 % (11.6-14.8); White Blood Cell Count 4.4 X10^3/uL (4.5-11.0)
[2021-03-24 05:25] LABS: BUN Creatinine Ratio 29.1 (6-22); Blood Urea Nitrogen 16 mg/dL (9-20); Carbon Dioxide 29 mmol/L (22-32); Chloride 105 mmol/L (98-107); Estimated Glomerular Filt Rate > 60.0 mL/min (>60); Glucose 121 mg/dL (70-100); HEMOLYSIS < 15 (0-50); Potassium 4.5 mmol/L (3.4-5.1); Sodium 139 mmol/L (137-145)
[2021-03-24 05:26] LABS: C-Reactive Protein Quant 4.3 mg/dL (<1.0)
[2021-03-24 06:19] LABS: Erythrocyte Sedimentation Rate > 140 MM/HR (0-15)
[2021-03-24] MEDS: lisinopriL 20 MG TABLET PO (07:37)
[2021-03-24] MEDS: TOPIRAMATE 25 MG TABLET 50 MG PO (07:37)
[2021-03-24] MEDS: cefTRIAXone 2,000 MG in SODIUM CHLORIDE 0.9% 100 ML 200 ML IV (07:38)
[2021-03-24] MEDS: DOCUSATE 100 MG CAPSULE PO (07:38)
[2021-03-24] MEDS: METFORMIN HCL 500 MG TABLET 1000 MG PO (07:57)
[2021-03-24] MEDS: METHADONE 10 MG TABLET 115 MG PO (08:57)
[2021-03-24] MEDS: INSULIN LISPRO 100 UNIT/ML 3ML VIAL SUBCUT ×4 (08:58→20:43)
[2021-03-24] MEDS: INSULIN GLARGINE 100 UNIT/ML 3ML PEN 40 UNIT SUBCUT ×2 (09:00→20:43)
--- NOTE | 2021-03-24 10:36 | DI.MRI.S_ITS ---
PROCEDURE: MR FOOT LT WO/W CON INDICATIONS: evaluate for osteomyelitis TECHNIQUE: Noncontrast sagittal T1 spin echo and T2 fast spin echo with fat saturation, long-axis T1 spin echo and T2 fast spin echo with fat saturation; short-axis T1 spin echo, proton density fast spin echo, and T2 fast spin echo with fat saturation through the forefoot. Post-contrast short axis, long axis, and sagittal T1 spin echo with fat saturation through the forefoot. COMPARISON: None. FINDINGS: Image quality: This examination is limited by involuntary motion artifact. In this patient with this given history, scrutiny is given to the 2nd toe. On these images, no definite abnormal signal can be seen of the bone marrow of the 2nd toe or the other visualized bones. No definite abnormal bone marrow enhancement can be seen. A chronic appearing cleft can be seen involving the proximal phalanx of the 2nd toe, with the appearance of a remote injury. Generalized soft tissue swelling with edema and enhancement can be seen, which is centered on the 2nd toe. No drainable abscess can be seen. . IMPRESSION: No osteomyelitis is seen of the 2nd toe or the other visualized bones. Second toe cellulitis. Dictated by: Akbar Vázquez M.D. on 03/24/2021 at 15:55 Approved by: Akbar Vázquez M.D. on 03/24/2021 at 15:59
--- NOTE | 2021-03-24 10:36 | DI.MRI.S_ITS ---
PROCEDURE: MR LOWER LEG LT WO/W CON INDICATIONS: Evaluate for osteomyelitis TECHNIQUE: Noncontrast coronal T1 spin echo and STIR, sagittal T1 spin echo with fat saturation and STIR, axial T1 spin echo and T2 fast spin echo with fat saturation. After the administration of contrast, axial/sagittal/coronal T1 spin echo with fat saturation through the distal left lower extremity . COMPARISON: [facility], MR, MR FOOT LT WO/W CON, 03/24/2021, 14:43. This study is presented for interpretation mid day on 03/25/2021. FINDINGS: Image quality: Diagnostic Generalized subcutaneous edema with increased STIR signal and enhancement can be seen throughout the distal left lower extremity. No focal fluid collections are seen to suggest abscess. No definite abnormal signal or enhancement can be seen within the muscles to suggest myositis. No abnormal bone marrow signal or abnormal enhancement can be seen to suggest osteomyelitis. IMPRESSION: Findings of osteomyelitis are not seen. Generalized left lower extremity cellulitis can be seen, without findings of a drainable abscess. Dictated by: Akbar Vázquez M.D. on 03/25/2021 at 11:34 Approved by: Akbar Vázquez M.D. on 03/25/2021 at 11:40
--- NOTE | 2021-03-24 14:29 | P.PN_ITS ---
Subjective Subjective Date Patient Seen: 03/24/21 Time Patient Seen: 11:00 Interval history: 41-year-old male with type 2 diabetes admitted to the hospital for left lower extremity cellulitis. No substancial improvement today in swelling. Based on prior cultures daptomycin was added . Currently without fever, chest pain, nausea, vomiting, diarrhea. ESR is >140. MRI of left lower extremity ordered. Exam Vital Signs (past 8 hours): - 03/24/21 08:30 03/24/21 12:00 Temperature 97.9 F 97.8 F Pulse Rate 76 71 Respiratory Rate 16 12 Blood Pressure 125/66 124/78 Pulse Oximetry 99 99 Oxygen Delivery Method Room Air Oxygen Flow Rate 0 Narrative Exam Narrative: Gen: Pleasant gentleman in no obvious distress Resp Other:?Lungs clear to auscultation Cardio Other:?Cardiac exam: Regular rate and rhythm normal S1-S2 GI Other:?Abdomen soft nontender nondistended Skin Other:?Skin:? Left thigh with stable erythema from prior areas of demarcation. Extrem Other:?Right lower extremity and Unna boot, left malleolus with dressing in place Objective Labs Result Diagrams: 03/24/21 04:51 03/24/21 04:51 Labs: Laboratory Results - last 24 hr 03/24/21 03/24/21 03/24/21 04:51 04:51 04:51 WBC 4.4 L RBC 3.74 L Hgb 10.1 L Hct 31.0 L MCV 82.9 MCH 27.0 MCHC 32.6 RDW 15.8 H Plt Count 182 Neut % (Auto) 65.2 Lymph % (Auto) 23.2 L [place] % (Auto) 8.2 Eos % (Auto) 2.0 Baso % (Auto) 1.4 Neut # (Auto) 2800 Lymph # (Auto) 1000 L [place] # (Auto) 400 Eos # (Auto) 100 Baso # (Auto) 100 ESR > 140 H Sodium 139 Potassium 4.5 Chloride 105 Carbon Dioxide 29 BUN 16 Creatinine 0.55 L Estimated GFR > 60.0 BUN/Creatinine Ratio 29.1 H Glucose 121 H Calcium 9.0 C-Reactive Protein 03/24/21 04:51 WBC RBC Hgb Hct MCV MCH MCHC RDW Plt Count Neut % (Auto) Lymph % (Auto) [place] % (Auto) Eos % (Auto) Baso % (Auto) Neut # (Auto) Lymph # (Auto) [place] # (Auto) Eos # (Auto) Baso # (Auto) ESR Sodium Potassium Chloride Carbon Dioxide BUN Creatinine Estimated GFR BUN/Creatinine Ratio Glucose Calcium C-Reactive Protein 4.3 H [facility] Medical History (Updated 03/20/21 @ 18:53 by Alissa Gentile MD) Chronic venous hypertension with ulcer Chronic, continuous use of opioids Obesity Type 2 diabetes mellitus Family History (Updated 03/20/21 @ 18:55 by Alissa Gentile MD) Mother Breast cancer Father Diabetes mellitus Social History household members: other Smoking Status: Current every day smoker alcohol intake: former Assessment & Plan Assessment & Plan narrative: 1. acute cellulitis - patient has multiple risk factors including type 2 diabetes and chronic venous stasis insufficiency - he has multiple ulcerations of his lower extremities including a right lower extremity toe ulcer with a wound?VAC?in place an-d a little boot in place patient also has a left malleolar ulcer with a dressing in place as well - patient developed significant rapidly progressive left thigh cellulitis initially, stable on initial antibiotics, but added daptomycin based on prior wound cultures as no siginificant improvement. -patient has chronic lower extremity ulcerations, is currently followed by the wound care with Dr. Dumont -ESR >140, will check MRI of LLE given persistent cellulitis to evaluate for possible osteomyelitis or underlying collection. 2.? type 2 diabetes - will continue his usual Lantus and metformin - patient to take his own Jardiance - will add sliding scale insulin as well 3.? hypertension - continue lisinopril 4.? chronic opiate dependent - continue methadone Code: Full DVT: lovenox daily Time Spent With Patient Critical Care time: I spent a total of [] minutes of critical care time on this patient's care today; this time is exclusive of procedural time.
--- NOTE | 2021-03-24 14:43 | PC.NURSE ---
Pt off floor to MRI at 1400.
--- NOTE | 2021-03-24 18:01 | PC.NURSE ---
1700 dressing changes done to both feet with dressings provided by the wound clinic. Saline flush to wounds prior to applying dressings.
[2021-03-25] VITALS (7 sets, daily range): BP systolic 107–133; BP diastolic 52–75; PULSE 60–81; RESP 16–20; TEMP 36.2–36.7; O2SAT 93–98
[2021-03-25 05:14] LABS: Add Manual Diff / Slide Review NO; Basophils Absolute Auto 0 /uL (0-100); Basophils Percent Auto 0.7 % (0-2); Eosinophils Absolute Auto 100 /uL (0-450); Eosinophils Percent Auto 1.8 % (2-4); Hematocrit 29.7 % (41-53); Hemoglobin 9.8 g/dL (13.5-17.5); Lymphocytes Absolute Auto 1100 /uL (1100-4500); Lymphocytes Percent Auto 25.9 % (25-40); Mean Corpuscular HGB Conc 33.1 % (30-36); Mean Corpuscular Hemoglobin 27.2 PG (26-34); Mean Corpuscular Volume 82.1 fL (80-100); Monocytes Absolute Auto 400 /uL (0-900); Monocytes Percent Auto 8.9 % (3-14); Neutrophils Absolute Auto 2600 /uL (1500-7000); Neutrophils Percent Auto 62.7 % (50-75); Platelet Count 189 X10^3/uL (150-400); Red Blood Cell Count 3.61 X10^6/uL (4.5-5.9); Red Cell Distribution Width 16.2 % (11.6-14.8); White Blood Cell Count 4.2 X10^3/uL (4.5-11.0)
[2021-03-25 05:25] LABS: BUN Creatinine Ratio 29.4 (6-22); Blood Urea Nitrogen 15 mg/dL (9-20); Calcium 9.2 mg/dL (8.4-10.2); Carbon Dioxide 26 mmol/L (22-32); Chloride 106 mmol/L (98-107); Estimated Glomerular Filt Rate > 60.0 mL/min (>60); Glucose 154 mg/dL (70-100); HEMOLYSIS < 15 (0-50); Potassium 4.2 mmol/L (3.4-5.1); Sodium 139 mmol/L (137-145)
[2021-03-25] MEDS: cefTRIAXone 2,000 MG in SODIUM CHLORIDE 0.9% 100 ML 200 ML IV (06:40)
[2021-03-25] MEDS: METFORMIN HCL 500 MG TABLET 1000 MG PO (08:48)
[2021-03-25] MEDS: METHADONE 10 MG TABLET 115 MG PO (08:48)
[2021-03-25] MEDS: DOCUSATE 100 MG CAPSULE PO ×2 (08:48→20:50)
[2021-03-25] MEDS: INSULIN LISPRO 100 UNIT/ML 3ML VIAL SUBCUT ×3 (08:51→17:25)
[2021-03-25] MEDS: lisinopriL 20 MG TABLET PO (08:59)
[2021-03-25] MEDS: INSULIN GLARGINE 100 UNIT/ML 3ML PEN 40 UNIT SUBCUT ×2 (09:07→20:51)
[2021-03-25] MEDS: TOPIRAMATE 25 MG TABLET 50 MG PO (09:07)
--- NOTE | 2021-03-25 12:01 | PC.NURSE ---
Pt notes very mild pain to RLE, PPP to BL feet; erythema to RLE traced in pen on thigh/lower leg; stockings to BLLEs intact, kim king to LLE c/d/i; ls clear; independent in room
--- NOTE | 2021-03-25 13:46 | CM.DPNOTE ---
DCP Note Patient discussed in multidisciplinary rounds this morning, Dr Roberts needing more information from imaging/MRI of LLE to determine POC because patient ESR continues to be very high. Met w/patient this morning to review DCP. Patient sitting up in the window seat, states he still plans to return home w/close outpatient f/u in the wound care center here at . Need for IV abx remains unclear. DCP team will plan to follow closely for coordination of DCP, as medical POC unfolds. CECILIA
--- NOTE | 2021-03-25 15:15 | P.PN_ITS ---
Subjective Subjective Date Patient Seen: 03/25/21 Time Patient Seen: 15:15 Interval history: 41-year-old male with type 2 diabetes admitted to the hospital for left lower extremity cellulitis. No substancial improvement today in swelling but redness is improving as is pain. Based on prior cultures daptomycin was added . Currently without fever, chest pain, nausea, vomiting, diarrhea. ESR is >140. MRI of left lower extremity ordered. Foot read and is okay, no read on LLE. Exam Vital Signs (past 8 hours): - 03/25/21 08:00 03/25/21 08:59 03/25/21 12:10 Temperature 97.2 F L 97.2 F L Pulse Rate 72 60 Respiratory Rate 16 16 Blood Pressure 126/61 126/71 133/61 Pulse Oximetry 97 97 Oxygen Delivery Method Room Air Oxygen Flow Rate 0 Narrative Exam Narrative: Gen: Pleasant gentleman in no obvious distress Resp Other:?Lungs clear to auscultation Cardio Other:?Cardiac exam: Regular rate and rhythm normal S1-S2 GI Other:?Abdomen soft nontender nondistended Skin Other:?Skin:? Left thigh with stable erythema from prior areas of demarcation. Redness is hand almond blancher, more pink colored today. Extrem Other:?Right lower extremity and Unna boot, left malleolus with dressing in place Objective Labs Result Diagrams: 03/25/21 04:55 03/25/21 04:55 Labs: Laboratory Results - last 24 hr 03/25/21 03/25/21 04:55 04:55 WBC 4.2 L RBC 3.61 L Hgb 9.8 L Hct 29.7 L MCV 82.1 MCH 27.2 MCHC 33.1 RDW 16.2 H Plt Count 189 Neut % (Auto) 62.7 Lymph % (Auto) 25.9 [place] % (Auto) 8.9 Eos % (Auto) 1.8 L Baso % (Auto) 0.7 Neut # (Auto) 2600 Lymph # (Auto) 1100 [place] # (Auto) 400 Eos # (Auto) 100 Baso # (Auto) 0 Sodium 139 Potassium 4.2 Chloride 106 Carbon Dioxide 26 BUN 15 Creatinine 0.51 L Estimated GFR > 60.0 BUN/Creatinine Ratio 29.4 H Glucose 154 H Calcium 9.2 PFSH Medical History (Updated 03/20/21 @ 18:53 by Alissa Gentile MD) Chronic venous hypertension with ulcer Chronic, continuous use of opioids Obesity Type 2 diabetes mellitus Family History (Updated 03/20/21 @ 18:55 by Alissa Gentile MD) Mother Breast cancer Father Diabetes mellitus Social History household members: other Smoking Status: Current every day smoker alcohol intake: former Assessment & Plan Assessment & Plan narrative: 1. acute cellulitis - patient has multiple risk factors including type 2 diabetes and chronic venous stasis insufficiency - he has multiple ulcerations of his lower extremities including a right lower extremity toe ulcer with a wound?VAC?in place an-d a little boot in place patient also has a left malleolar ulcer with a dressing in place as well - patient developed significant rapidly progressive left thigh cellulitis initially, stable on initial antibiotics, but added daptomycin based on prior wound cultures as no siginificant improvement. His redness is improving, but still with significant cellulitis. -patient has chronic lower extremity ulcerations, is currently followed by the wound care with Dr. Dumont -ESR >140, will check MRI of LLE given persistent cellulitis to evaluate for possible osteomyelitis or underlying collection. Foot without osteo, LLE MRI pending read, will look into obtaining report. 2.? type 2 diabetes - will continue his usual Lantus and metformin - patient to take his own Jardiance - will add sliding scale insulin as well 3.? hypertension - continue lisinopril 4.? chronic opiate dependent - continue methadone Code: Full DVT: lovenox daily Time Spent With Patient Critical Care time: I spent a total of [] minutes of critical care time on this patient's care today; this time is exclusive of procedural time.
[2021-03-26] VITALS (7 sets, daily range): BP systolic 117–124; BP diastolic 60–68; PULSE 64–78; RESP 15–19; TEMP 35.7–36.7; O2SAT 95–100
[2021-03-26 05:25] LABS: Add Manual Diff / Slide Review NO; Basophils Absolute Auto 0 /uL (0-100); Basophils Percent Auto 0.9 % (0-2); Eosinophils Absolute Auto 100 /uL (0-450); Eosinophils Percent Auto 1.8 % (2-4); Hematocrit 31.7 % (41-53); Hemoglobin 10.4 g/dL (13.5-17.5); Lymphocytes Absolute Auto 1100 /uL (1100-4500); Lymphocytes Percent Auto 25.4 % (25-40); Mean Corpuscular HGB Conc 32.9 % (30-36); Mean Corpuscular Hemoglobin 27.1 PG (26-34); Mean Corpuscular Volume 82.3 fL (80-100); Monocytes Absolute Auto 300 /uL (0-900); Monocytes Percent Auto 7.4 % (3-14); Neutrophils Absolute Auto 2800 /uL (1500-7000); Neutrophils Percent Auto 64.5 % (50-75); Platelet Count 196 X10^3/uL (150-400); Red Blood Cell Count 3.85 X10^6/uL (4.5-5.9); Red Cell Distribution Width 15.7 % (11.6-14.8); White Blood Cell Count 4.3 X10^3/uL (4.5-11.0)
[2021-03-26 05:34] LABS: BUN Creatinine Ratio 24.6 (6-22); Blood Urea Nitrogen 16 mg/dL (9-20); Calcium 9.6 mg/dL (8.4-10.2); Carbon Dioxide 27 mmol/L (22-32); Chloride 105 mmol/L (98-107); Estimated Glomerular Filt Rate > 60.0 mL/min (>60); Glucose 134 mg/dL (70-100); HEMOLYSIS < 15 (0-50); Potassium 4.2 mmol/L (3.4-5.1); Sodium 140 mmol/L (137-145)
[2021-03-26] MEDS: SODIUM CHLORIDE 0.9% FLUSH 10 ML IV ×3 (06:34→21:29)
[2021-03-26] MEDS: cefTRIAXone 2,000 MG in SODIUM CHLORIDE 0.9% 100 ML 200 ML IV (06:35)
[2021-03-26] MEDS: METFORMIN HCL 500 MG TABLET 1000 MG PO (08:55)
[2021-03-26] MEDS: lisinopriL 20 MG TABLET PO (08:56)
[2021-03-26] MEDS: TOPIRAMATE 25 MG TABLET 50 MG PO (08:56)
[2021-03-26] MEDS: DOCUSATE 100 MG CAPSULE PO ×2 (08:56→21:31)
[2021-03-26] MEDS: INSULIN GLARGINE 100 UNIT/ML 3ML PEN 40 UNIT SUBCUT ×2 (08:58→21:35)
[2021-03-26] MEDS: METHADONE 10 MG TABLET 115 MG PO (10:04)
--- NOTE | 2021-03-26 10:28 | PC.NURSE ---
Erythema to LLE below demarcation line, pink at edges, warm to touch; stocking to LLE intact, stocking to RLE intact; PPP; denies pain; encouraged to deep breath, LS clear
[2021-03-26] MEDS: INSULIN LISPRO 100 UNIT/ML 3ML VIAL SUBCUT ×2 (12:25→16:43)
--- NOTE | 2021-03-26 14:26 | P.PN_ITS ---
Subjective Subjective Date Patient Seen: 03/26/21 Time Patient Seen: 14:26 Interval history: 41-year-old male with type 2 diabetes admitted to the hospital for left lower extremity cellulitis. No substancial improvement today in swelling but redness is now beginning to really improve. Based on prior cultures daptomycin was added. Currently without fever, chest pain, nausea, vomiting, diarrhea. ESR is >140. MRI of left lower extremity and foot negative for osteo. Exam Vital Signs (past 8 hours): - 03/26/21 07:26 03/26/21 08:56 03/26/21 12:14 Temperature 97.4 F L 97.8 F Pulse Rate 70 70 Respiratory Rate 16 15 Blood Pressure 122/68 122/68 120/60 Pulse Oximetry 96 96 Oxygen Delivery Method Room Air Oxygen Flow Rate 0 Narrative Exam Narrative: Gen: Pleasant gentleman in no obvious distress Resp Other:?Lungs clear to auscultation Cardio Other:?Cardiac exam: Regular rate and rhythm normal S1-S2 GI Other:?Abdomen soft nontender nondistended Skin Other:?Skin:? Left thigh with stable erythema from prior areas of demarcation. Redness is bladder changer, more pink colored today. Extrem Other:?Right lower extremity and Unna boot, left malleolus with dressing in place Objective Labs Result Diagrams: 03/26/21 05:01 03/26/21 05:01 Labs: Laboratory Results - last 24 hr 03/26/21 03/26/21 05:01 05:01 WBC 4.3 L RBC 3.85 L Hgb 10.4 L Hct 31.7 L MCV 82.3 MCH 27.1 MCHC 32.9 RDW 15.7 H Plt Count 196 Neut % (Auto) 64.5 Lymph % (Auto) 25.4 Will % (Auto) 7.4 Eos % (Auto) 1.8 L Baso % (Auto) 0.9 Neut # (Auto) 2800 Lymph # (Auto) 1100 Will # (Auto) 300 Eos # (Auto) 100 Baso # (Auto) 0 Sodium 140 Potassium 4.2 Chloride 105 Carbon Dioxide 27 BUN 16 Creatinine 0.65 L Estimated GFR > 60.0 BUN/Creatinine Ratio 24.6 H Glucose 134 H Calcium 9.6 PFSH Medical History (Updated 03/20/21 @ 18:53 by Alissa Gentile MD) Chronic venous hypertension with ulcer Chronic, continuous use of opioids Obesity Type 2 diabetes mellitus Family History (Updated 03/20/21 @ 18:55 by Alissa Gentile MD) Mother Breast cancer Father Diabetes mellitus Social History household members: other Smoking Status: Current every day smoker alcohol intake: former Assessment & Plan Assessment & Plan narrative: 1. acute cellulitis - patient has multiple risk factors including type 2 diabetes and chronic venous stasis insufficiency - he has multiple ulcerations of his lower extremities including a right lower extremity toe ulcer with a wound?VAC?in place an-d a little boot in place patient also has a left malleolar ulcer with a dressing in place as well - patient developed significant rapidly progressive left thigh cellul[facility], stable on initial antibiotics, but added daptomycin based on prior wound cultures (intermediate resistance to vanco) as there was no siginificant improvement. His redness is improving over the last 48 hours since adding daptomycin, though very slowly. -patient has chronic lower extremity ulcerations, is currently followed by the wound care with Dr. Dumont -ESR >140, MRI of LLE given persistent cellulitis to evaluate for possible osteomyelitis or underlying collection showed only continued cellulitis without collection or osteomyelitis. 2.? type 2 diabetes - will continue his usual Lantus and metformin - patient to take his own Jardiance - sliding scale insulin as well 3.? hypertension - continue lisinopril 4.? chronic opiate dependent - continue methadone Code: Full DVT: lovenox daily Time Spent With Patient Critical Care time: I spent a total of [] minutes of critical care time on this patient's care today; this time is exclusive of procedural time.
[2021-03-27] MEDS: TOPIRAMATE 25 MG TABLET 50 MG PO ×2 (01:35→08:33)
--- NOTE | 2021-03-27 01:42 | PC.NURSE ---
C/O severe migraine REEDER. BUBBA Bateman notified order received additional dose of 50 mg. Topamax, admin. Will monitor.
[2021-03-27 05:00] VITALS: BP 130/50; PULSE 64; RESP 18; TEMP 37.2; O2SAT 98
[2021-03-27] MEDS: cefTRIAXone 2,000 MG in SODIUM CHLORIDE 0.9% 100 ML 200 ML IV (07:00)
[2021-03-27] MEDS: SODIUM CHLORIDE 0.9% FLUSH 10 ML IV ×2 (07:01→08:34)
[2021-03-27] MEDS: SODIUM CHLORIDE 0.9% 250 ML 21 ML IV (07:05)
[2021-03-27] MEDS: INSULIN LISPRO 100 UNIT/ML 3ML VIAL SUBCUT ×2 (08:08→12:25)
[2021-03-27 08:09] VITALS: BP 130/50
[2021-03-27] MEDS: DOCUSATE 100 MG CAPSULE PO (08:09)
[2021-03-27] MEDS: lisinopriL 20 MG TABLET PO (08:09)
[2021-03-27] MEDS: INSULIN GLARGINE 100 UNIT/ML 3ML PEN 40 UNIT SUBCUT (08:10)
[2021-03-27] MEDS: METFORMIN HCL 500 MG TABLET 1000 MG PO (08:15)
[2021-03-27] MEDS: METHADONE 10 MG TABLET 115 MG PO (08:25)
[2021-03-27 09:00] VITALS: BP 126/62; PULSE 87; RESP 18; TEMP 36.7; O2SAT 98
[2021-03-27 13:00] VITALS: BP 117/68; PULSE 66; RESP 18; TEMP 36.6; O2SAT 98
--- NOTE | 2021-03-27 14:28 | CM.DPC ---
DCP/continued: Received notification from provider that patient medically stable to d/c home today if po antibiotics covered. Provider gave PIER WORKER prescription for zyvox 600mg BID x4days. RN reports that patient's preferred pharmacy is [facility] in [place]. PIER WORKER placed call to in [place] and provided them with the above information. manager technology reports that this prescription has no copay. RN notified patient and original copy of script given to patient with d/c instructions. In addition, copy of script and demographic information faxed to in [place]. Provider updated on the above. Patient discharging home today. RN reports that she will check with wound clinic to determine when patient's next outpatient appointment is. No additional needs identified. P: Home today. BIANCA
--- NOTE | 2021-03-27 14:54 | PC.NURSE ---
Discharge note: pt home today to start oral Linezolid. Instructed patient to start tonight. Called wound care to ensure pt has follow up appt with them scheduled. He does not so requested they call patient to follow up on scheduling him. They stated they would do this. Linezolid script faxed to [facility] in [place] and hard copy also sent with patient. Instructed patient if that his redness left thigh starts increasing, he will need to return to the ER. Verbalized understanding. Reviewed with patient medications to continue. IV discontinued. Wheel to car via wheelchair.
--- NOTE | 2021-03-27 17:31 | PM.DS.1 ---
History of Present Illness History of Present Illness Chief complaint: redness/swollen/hot on left leg since sat Narrative: Per Dr. Gentile: 41-year-old male with type 2 diabetes, hypertension, opiate dependence who has chronic lower extremity ulcers and multiple wounds. He is currently being followed by Dr. sofia at the wound can [facility]. The patient has a left malleolar ulcer which has been followed and cultured. He was given antibiotics to be started on Friday. Patient notes that he developed swelling redness and warmth of the left thigh. He noted that the redness and warmth go progressively worse despite taking antibiotics. As he has had multiple infections the patient presented to the emergency room for evaluation. In the emergency room the patient was found to have a significant area of erythema on the upper thigh trachea seeing up the thigh which was warm and tender. He has had no fever. No nausea no vomiting. He has no shortness of breath. The patient has a little boot on the right lower extremity with a wound VAC for chronic ulcer on the right leg. He currently has a left malleolar ulcer as well which is improving. Patient was admitted to the hospital for progressive cellulitis. Discharge Providers Provider Date of admission: 03/20/21 09:23 Discharge Date: 03/27/21 Consults: 03/20/21 16:51 Consult to Dietitian, Adult Routine Comment: Reason For Exam: Needs diabetic education Discharge provider: Jacobo Donnelly MD Summary Hospital Course Discharge Diagnosis: 1. Acute cellulitis 2. Type 2 Diabetes on insulin 3. Hypertension 4. Chronic opiate dependence on methadone 5. Chronic venous stasis 6. Multiple lower extremity ulcers with wound vac and unna boot Hospital Course: Mr. Huertas was admitted with acute cellulitis. He significant involvement of his left thigh and initial treatment showed poor improvement. Based on previous cultures he was switched to daptomycin and had slow improvement. On day of discharge he was feeling improved with minimal erythema. He will be discharged with linezolid to complete a course of antibiotics were a slow to improve cellulitis. He did have an elevated ESR >140, but MRI of his extremity and foot was negative for osteomyelitis. He has had repeated infections, and will need continued close follow up with his PCP and with wound care who he is already following with. He was recommended to follow up within one week. Exam Vital Signs (past 8 hours): - 03/27/21 13:00 Temperature 97.9 F Pulse Rate 66 Respiratory Rate 18 Blood Pressure 117/68 Pulse Oximetry 98 Oxygen Delivery Method Room Air Oxygen Flow Rate 0 Narrative Exam Narrative: Gen: Pleasant gentleman in no obvious distress Lungs clear to auscultation Abdomen soft nontender nondistended Skin: Left thigh with mild erythema from prior areas of demarcation. Redness is center receptionist, more pink colored today. Other: Right lower extremity and Unna boot, left malleolus with dressing in place Objective Labs Result Diagrams: 03/26/21 05:01 03/26/21 05:01 [facility] Medical History (Updated 03/20/21 @ 18:53 by Alissa Gentile MD) Chronic venous hypertension with ulcer Chronic, continuous use of opioids Obesity Type 2 diabetes mellitus Family History (Updated 03/20/21 @ 18:55 by Alissa Gentile MD) Mother Breast cancer Father Diabetes mellitus Social History household members: other Smoking Status: Current every day smoker alcohol intake: former Discharge Plan Discharge Plan Patient Disposition: Home Provider Discharge Comment: Mr. Huertas came in to the hospital with a skin infection. He did improve slowly with antibiotics. He was feeling better on day of discharge and will be given a prescription to complete his antibiotics. Please follow up with your PCP within one week. Discharge orders & Medications Prescriptions: New linezolid 600 mg tablet 600 mg PO BID Qty: 8 RF: 0 Continued methadone 10 mg Tablet 115 mg PO DAILY RF: 0 lisinopril 20 mg tablet 20 mg PO DAILY RF: 0 topiramate 25 mg tablet 50 mg PO DAILY RF: 0 metformin 1,000 mg tablet 1,000 mg PO DAILY RF: 0 Lantus Solostar U-100 Insulin 100 unit/mL (3 mL) insulin pen 40 unit SUBCUT BID RF: 0 Jardiance 25 mg tablet 25 mg PO DAILY RF: 0 Follow up/Referrals: Charles Batres MD [Physician] - (recently admitted to hospital with cellulitis) Bo Alexander [Non-Staff] - (admitted to hospital with left leg cellulitis) Diet/Activity/Treatments Diet: Carb-consistent/Diabetic Visit Report/Discharge Packet Instructions: DI for Cellulitis -- Adult Quality MIPS - DC The patient has current or prior documentation of left ventricular ejection fraction (LVEF) less than 40%, or moderate or severely depressed left ventricular systolic function.: No
== END 2021-03-27 14:57 | disposition home or self-care (01) | DRG 603 ==
LOC: ED 07:49 → AC 09:24
PROVIDERS: Emergency Medicine; Internal Medicine; Admitting Provider Internal Medicine; Emergency Provider Emergency Medicine; Referring Provider Emergency Medicine; Visit Provider Internal Medicine
DX: L03.116 Cellulitis of left lower limb (principal); I87.313 Chronic venous hypertension (idiopathic) with ulcer of bilateral lower extremity; L97.329 Non-pressure chronic ulcer of left ankle with unspecified severity; F11.20 Opioid dependence, uncomplicated; Z68.42 Body mass index [BMI] 45.0-49.9, adult; L97.519 Non-pressure chronic ulcer of other part of right foot with unspecified severity; E11.9 Type 2 diabetes mellitus without complications; E66.01 Morbid (severe) obesity due to excess calories; F17.210 Nicotine dependence, cigarettes, uncomplicated; Z79.4 Long term (current) use of insulin; Z20.822 Contact with and (suspected) exposure to COVID-19
CPT/HCPCS: 36415; 36592; 73720; 80048; 80053; 80061; 82962; 83605; 83735; 85025; 85651; 86140; 87040; 87635; 96365; 99284; 99406; C9803; A9579; J0696; J0878; J1650; J1815

== ENCOUNTER → 2021-05-08 10:31 | Outpatient (CLI) | payer OTHER, SELFPAY | PROVIDERS: Visit Provider Family Medicine | DX: E11.621 Type 2 diabetes mellitus with foot ulcer (principal); L97.512 Non-pressure chronic ulcer of other part of right foot with fat layer exposed; E11.40 Type 2 diabetes mellitus with diabetic neuropathy, unspecified; I87.2 Venous insufficiency (chronic) (peripheral); L97.322 Non-pressure chronic ulcer of left ankle with fat layer exposed; R60.0 Localized edema; L08.9 Local infection of the skin and subcutaneous tissue, unspecified; I89.0 Lymphedema, not elsewhere classified; I45.81 Long QT syndrome; E66.01 Morbid (severe) obesity due to excess calories; F12.90 Cannabis use, unspecified, uncomplicated; Z72.0 Tobacco use; Z79.4 Long term (current) use of insulin; Z79.891 Long term (current) use of opiate analgesic; Z68.42 Body mass index [BMI] 45.0-49.9, adult | CPT/HCPCS: 11042; 87070; 87075; 87077; 87186; 87205; 99214 ==

== ENCOUNTER → 2021-05-16 09:58 | Outpatient (CLI) | payer OTHER, SELFPAY | PROVIDERS: Visit Provider Family Medicine | DX: E11.621 Type 2 diabetes mellitus with foot ulcer (principal); L97.512 Non-pressure chronic ulcer of other part of right foot with fat layer exposed; E11.40 Type 2 diabetes mellitus with diabetic neuropathy, unspecified; I87.2 Venous insufficiency (chronic) (peripheral); L97.322 Non-pressure chronic ulcer of left ankle with fat layer exposed; L08.9 Local infection of the skin and subcutaneous tissue, unspecified; B96.29 Other Escherichia coli [E. coli] as the cause of diseases classified elsewhere; R60.0 Localized edema; I89.0 Lymphedema, not elsewhere classified; I45.81 Long QT syndrome; F12.90 Cannabis use, unspecified, uncomplicated; E66.01 Morbid (severe) obesity due to excess calories; Z68.41 Body mass index [BMI] 40.0-44.9, adult; Z72.0 Tobacco use; Z79.891 Long term (current) use of opiate analgesic; Z79.4 Long term (current) use of insulin | CPT/HCPCS: 11042; 29580; 87070; 87077; 87186; 87205; 97607; 99213 ==

== ENCOUNTER → 2021-05-23 10:38 | Outpatient (CLI) | payer MEDICARE, MEDICAID, SELFPAY | PROVIDERS: Visit Provider Family Medicine | DX: E11.621 Type 2 diabetes mellitus with foot ulcer (principal); L97.512 Non-pressure chronic ulcer of other part of right foot with fat layer exposed; E11.40 Type 2 diabetes mellitus with diabetic neuropathy, unspecified; I87.2 Venous insufficiency (chronic) (peripheral); L97.322 Non-pressure chronic ulcer of left ankle with fat layer exposed; L08.9 Local infection of the skin and subcutaneous tissue, unspecified; B95.7 Other staphylococcus as the cause of diseases classified elsewhere; R60.0 Localized edema; I89.0 Lymphedema, not elsewhere classified; E66.01 Morbid (severe) obesity due to excess calories; I45.81 Long QT syndrome; F12.90 Cannabis use, unspecified, uncomplicated; Z72.0 Tobacco use; Z68.41 Body mass index [BMI] 40.0-44.9, adult; Z79.891 Long term (current) use of opiate analgesic | CPT/HCPCS: 11042; 97607; 99212; 99213 ==

== ENCOUNTER → 2021-05-29 11:04 | Outpatient (CLI) | payer MEDICARE, MEDICAID, SELFPAY | PROVIDERS: Visit Provider Family Medicine | DX: E11.621 Type 2 diabetes mellitus with foot ulcer (principal); L97.512 Non-pressure chronic ulcer of other part of right foot with fat layer exposed; E11.40 Type 2 diabetes mellitus with diabetic neuropathy, unspecified; I87.2 Venous insufficiency (chronic) (peripheral); L97.322 Non-pressure chronic ulcer of left ankle with fat layer exposed; R60.0 Localized edema; I89.0 Lymphedema, not elsewhere classified; I45.81 Long QT syndrome; F12.90 Cannabis use, unspecified, uncomplicated; E66.01 Morbid (severe) obesity due to excess calories; Z72.0 Tobacco use; Z68.42 Body mass index [BMI] 45.0-49.9, adult; Z79.891 Long term (current) use of opiate analgesic; Z79.4 Long term (current) use of insulin | CPT/HCPCS: 11042; 99213 ==

== ENCOUNTER → 2021-06-05 10:06 | Outpatient (CLI) | payer MEDICARE, MEDICAID, SELFPAY | PROVIDERS: Visit Provider Family Medicine | DX: E11.621 Type 2 diabetes mellitus with foot ulcer (principal); L97.512 Non-pressure chronic ulcer of other part of right foot with fat layer exposed; E11.40 Type 2 diabetes mellitus with diabetic neuropathy, unspecified; I87.2 Venous insufficiency (chronic) (peripheral); L97.322 Non-pressure chronic ulcer of left ankle with fat layer exposed; L08.9 Local infection of the skin and subcutaneous tissue, unspecified; R60.0 Localized edema; I89.0 Lymphedema, not elsewhere classified; I45.81 Long QT syndrome; F12.90 Cannabis use, unspecified, uncomplicated; E66.01 Morbid (severe) obesity due to excess calories; Z72.0 Tobacco use; Z68.42 Body mass index [BMI] 45.0-49.9, adult; Z79.891 Long term (current) use of opiate analgesic; Z79.4 Long term (current) use of insulin | CPT/HCPCS: 11042; 87070; 87075; 87077; 87147; 87186; 87205; 99213 ==

== ENCOUNTER → 2021-06-13 10:16 | Outpatient (CLI) | payer MEDICARE, MEDICAID, SELFPAY | PROVIDERS: Visit Provider Family Medicine | DX: E11.621 Type 2 diabetes mellitus with foot ulcer (principal); L97.512 Non-pressure chronic ulcer of other part of right foot with fat layer exposed; E11.40 Type 2 diabetes mellitus with diabetic neuropathy, unspecified; I87.2 Venous insufficiency (chronic) (peripheral); L97.322 Non-pressure chronic ulcer of left ankle with fat layer exposed; L08.9 Local infection of the skin and subcutaneous tissue, unspecified; B96.29 Other Escherichia coli [E. coli] as the cause of diseases classified elsewhere; R60.0 Localized edema; I89.0 Lymphedema, not elsewhere classified; I45.81 Long QT syndrome; E66.01 Morbid (severe) obesity due to excess calories; F12.90 Cannabis use, unspecified, uncomplicated; Z72.0 Tobacco use; Z68.42 Body mass index [BMI] 45.0-49.9, adult; Z79.891 Long term (current) use of opiate analgesic; Z79.4 Long term (current) use of insulin | CPT/HCPCS: 11042; 99213 ==

== ENCOUNTER → 2021-06-20 13:00 | Outpatient (CLI) | payer MEDICARE, MEDICAID, SELFPAY | PROVIDERS: Visit Provider Family Medicine | DX: E11.621 Type 2 diabetes mellitus with foot ulcer (principal); L97.512 Non-pressure chronic ulcer of other part of right foot with fat layer exposed; E11.40 Type 2 diabetes mellitus with diabetic neuropathy, unspecified; I87.2 Venous insufficiency (chronic) (peripheral); L97.322 Non-pressure chronic ulcer of left ankle with fat layer exposed; R60.0 Localized edema; I89.0 Lymphedema, not elsewhere classified; E66.01 Morbid (severe) obesity due to excess calories; I45.81 Long QT syndrome; F12.90 Cannabis use, unspecified, uncomplicated; Z72.0 Tobacco use; Z68.42 Body mass index [BMI] 45.0-49.9, adult; Z79.891 Long term (current) use of opiate analgesic | CPT/HCPCS: 11042; 97607; 99213 ==

== ENCOUNTER → 2021-06-28 13:23 | Outpatient (CLI) | payer MEDICARE, MEDICAID, SELFPAY | PROVIDERS: Visit Provider Family Medicine | DX: E11.621 Type 2 diabetes mellitus with foot ulcer (principal); L97.512 Non-pressure chronic ulcer of other part of right foot with fat layer exposed; E11.40 Type 2 diabetes mellitus with diabetic neuropathy, unspecified; I87.2 Venous insufficiency (chronic) (peripheral); L97.322 Non-pressure chronic ulcer of left ankle with fat layer exposed; R60.0 Localized edema; I89.0 Lymphedema, not elsewhere classified; E66.01 Morbid (severe) obesity due to excess calories; I45.81 Long QT syndrome; F12.90 Cannabis use, unspecified, uncomplicated; Z72.0 Tobacco use; Z68.42 Body mass index [BMI] 45.0-49.9, adult; Z79.891 Long term (current) use of opiate analgesic; Z79.4 Long term (current) use of insulin; Z79.84 Long term (current) use of oral hypoglycemic drugs | CPT/HCPCS: 11042; 97607; 99213 ==

== ENCOUNTER → 2021-07-04 10:40 | Outpatient (CLI) | payer MEDICARE, MEDICAID, SELFPAY | PROVIDERS: Visit Provider Family Medicine | DX: E11.621 Type 2 diabetes mellitus with foot ulcer (principal); L97.512 Non-pressure chronic ulcer of other part of right foot with fat layer exposed; E11.40 Type 2 diabetes mellitus with diabetic neuropathy, unspecified; I87.2 Venous insufficiency (chronic) (peripheral); L97.322 Non-pressure chronic ulcer of left ankle with fat layer exposed; R60.0 Localized edema; I89.0 Lymphedema, not elsewhere classified; E66.01 Morbid (severe) obesity due to excess calories; I45.81 Long QT syndrome; F12.90 Cannabis use, unspecified, uncomplicated; Z72.0 Tobacco use; Z68.41 Body mass index [BMI] 40.0-44.9, adult; Z79.891 Long term (current) use of opiate analgesic; Z79.4 Long term (current) use of insulin | CPT/HCPCS: 11042; 97607; 99213 ==

== ENCOUNTER → 2021-07-11 11:28 | Outpatient (CLI) | payer MEDICARE, MEDICAID, SELFPAY | PROVIDERS: PCP Family Medicine; Referring Provider Family Medicine; Visit Provider Family Medicine | DX: E11.621 Type 2 diabetes mellitus with foot ulcer (principal); L97.512 Non-pressure chronic ulcer of other part of right foot with fat layer exposed; E11.40 Type 2 diabetes mellitus with diabetic neuropathy, unspecified; I87.2 Venous insufficiency (chronic) (peripheral); L97.322 Non-pressure chronic ulcer of left ankle with fat layer exposed; R60.0 Localized edema; L03.115 Cellulitis of right lower limb; M79.661 Pain in right lower leg; I89.0 Lymphedema, not elsewhere classified; I45.81 Long QT syndrome; E66.01 Morbid (severe) obesity due to excess calories; F12.90 Cannabis use, unspecified, uncomplicated; Z72.0 Tobacco use; Z68.41 Body mass index [BMI] 40.0-44.9, adult; Z79.891 Long term (current) use of opiate analgesic; Z79.4 Long term (current) use of insulin; Z79.84 Long term (current) use of oral hypoglycemic drugs | CPT/HCPCS: 11042; 87070; 87075; 87077; 87186; 87205; 99214 ==

== ENCOUNTER → 2021-07-11 12:08 | Outpatient (CLI) | payer MEDICARE, MEDICAID, SELFPAY ==
--- NOTE | 2021-07-11 | DI.US.S_ITS ---
PROCEDURE: US PERIPH VENOUS LOW EXTREM RT INDICATIONS: SWELLING, LUMP, OR REDNESS. TECHNIQUE: Real-time imaging, as well as color and pulse Doppler interrogation, were performed of the lower extremity deep veins from the inguinal ligament to the popliteal fossa. COMPARISON: None. FINDINGS: The common femoral, femoral and popliteal veins are normally compressible, and free of intraluminal thrombus. Color and pulse Doppler demonstrate normal phasic intraluminal flow. There is normal augmentation response to distal compression maneuver. Enlarged right groin lymph node is noted which measures 1.2 centimeters in short axis. Right popliteal fossa and calf nonspecific soft tissue edema. IMPRESSION: No evidence of deep vein thrombosis involving the right lower extremity. Right groin lymphadenopathy which could be reactive or neoplastic. Dictated by: Leeanna Brooke MD, PhD on 07/11/2021 at 13:27 Approved by: Leeanna Brooke MD, PhD on 07/11/2021 at 13:28
[2021-07-11 14:14] LABS: Add Manual Diff / Slide Review NO; Basophils Absolute Auto 0 /uL (0-100); Basophils Percent Auto 0.6 % (0-2); Eosinophils Absolute Auto 100 /uL (0-450); Eosinophils Percent Auto 2.3 % (2-4); Hematocrit 34.9 % (41-53); Hemoglobin 11.8 g/dL (13.5-17.5); Lymphocytes Absolute Auto 1300 /uL (1100-4500); Lymphocytes Percent Auto 20.2 % (25-40); Mean Corpuscular HGB Conc 33.9 % (30-36); Mean Corpuscular Hemoglobin 27.6 PG (26-34); Mean Corpuscular Volume 81.5 fL (80-100); Monocytes Absolute Auto 600 /uL (0-900); Monocytes Percent Auto 9.3 % (3-14); Neutrophils Absolute Auto 4200 /uL (1500-7000); Neutrophils Percent Auto 67.6 % (50-75); Platelet Count 130 X10^3/uL (150-400); Red Blood Cell Count 4.29 X10^6/uL (4.5-5.9); Red Cell Distribution Width 16.4 % (11.6-14.8); White Blood Cell Count 6.2 X10^3/uL (4.5-11.0)
[2021-07-11 14:33] LABS: INR 1.1 (0.9-1.3); Prothrombin Time 12.8 SECONDS (10.1-12.7)
[2021-07-11 14:34] LABS: D Dimer 663 ng/mL (<230); PTT Partial Thromboplastin Tim 22 SECONDS (26.4-36.2)
[2021-07-11 14:40] LABS: Alanine Aminotransferase 34 IU/L (<50); Albumin 4.3 g/dL (3.5-5.0); Albumin Globulin Ratio 1.1 (1.0-2.8); Alkaline Phosphatase 132 U/L (38-126); Aspartate Aminotransferase 41 IU/L (17-59); BUN Creatinine Ratio 26.2 (6-22); Bilirubin Total 1.2 mg/dL (0.2-1.3); Blood Urea Nitrogen 16 mg/dL (9-20); Calcium 9.6 mg/dL (8.4-10.2); Carbon Dioxide 24 mmol/L (22-32); Chloride 106 mmol/L (98-107); Estimated Glomerular Filt Rate > 60.0 mL/min (>60); Glucose 131 mg/dL (70-100); HEMOLYSIS < 15 (0-50); Potassium 4.2 mmol/L (3.4-5.1); Sodium 140 mmol/L (137-145); Total Protein 8.3 g/dL (6.3-8.2)
[2021-07-11 14:41] LABS: Hemoglobin A1C% w Est Avg Glu 6.4 % (4.0-6.0)
== END ==
PROVIDERS: PCP Family Medicine; Referring Provider Family Medicine; Visit Provider Family Medicine
DX: E11.621 Type 2 diabetes mellitus with foot ulcer (principal); L97.512 Non-pressure chronic ulcer of other part of right foot with fat layer exposed; L03.115 Cellulitis of right lower limb; E11.40 Type 2 diabetes mellitus with diabetic neuropathy, unspecified; I87.2 Venous insufficiency (chronic) (peripheral); L97.322 Non-pressure chronic ulcer of left ankle with fat layer exposed; R22.41 Localized swelling, mass and lump, right lower limb; M79.661 Pain in right lower leg; L53.9 Erythematous condition, unspecified; R60.0 Localized edema; I89.0 Lymphedema, not elsewhere classified; I45.81 Long QT syndrome; F12.90 Cannabis use, unspecified, uncomplicated; E66.01 Morbid (severe) obesity due to excess calories; Z68.41 Body mass index [BMI] 40.0-44.9, adult; Z72.0 Tobacco use; Z79.891 Long term (current) use of opiate analgesic; Z79.4 Long term (current) use of insulin; Z79.84 Long term (current) use of oral hypoglycemic drugs
CPT/HCPCS: 11042; 36415; 80053; 83036; 85025; 85379; 85610; 85730; 87070; 87077; 87186; 87205; 93971; 99214

== ENCOUNTER → 2021-07-19 14:30 | Outpatient (CLI) | payer MEDICARE, MEDICAID, SELFPAY | PROVIDERS: PCP Family Medicine; Referring Provider Nurse Practitioner; Visit Provider Nurse Practitioner Family | DX: L97.512 Non-pressure chronic ulcer of other part of right foot with fat layer exposed (principal); L97.321 Non-pressure chronic ulcer of left ankle limited to breakdown of skin; L97.511 Non-pressure chronic ulcer of other part of right foot limited to breakdown of skin; E11.621 Type 2 diabetes mellitus with foot ulcer; I87.2 Venous insufficiency (chronic) (peripheral); R60.9 Edema, unspecified; L08.9 Local infection of the skin and subcutaneous tissue, unspecified | CPT/HCPCS: 11042; 97597; 99214 ==

== ENCOUNTER → 2021-07-26 13:31 | Outpatient (CLI) | payer MEDICARE, MEDICAID, SELFPAY | PROVIDERS: PCP Family Medicine; Referring Provider Family Medicine; Visit Provider Family Medicine | DX: E11.621 Type 2 diabetes mellitus with foot ulcer (principal); L97.512 Non-pressure chronic ulcer of other part of right foot with fat layer exposed; E11.40 Type 2 diabetes mellitus with diabetic neuropathy, unspecified; I87.2 Venous insufficiency (chronic) (peripheral); L97.322 Non-pressure chronic ulcer of left ankle with fat layer exposed; R60.0 Localized edema; I89.0 Lymphedema, not elsewhere classified; I45.81 Long QT syndrome; E66.01 Morbid (severe) obesity due to excess calories; F12.90 Cannabis use, unspecified, uncomplicated; Z72.0 Tobacco use; Z68.41 Body mass index [BMI] 40.0-44.9, adult; Z79.891 Long term (current) use of opiate analgesic; Z79.4 Long term (current) use of insulin; Z79.84 Long term (current) use of oral hypoglycemic drugs | CPT/HCPCS: 15275; 99213; Q4110 ==

== ENCOUNTER → 2021-08-08 10:03 | Outpatient (CLI) | payer MEDICARE, MEDICAID, SELFPAY | PROVIDERS: PCP Family Medicine; Referring Provider Family Medicine; Visit Provider Family Medicine | DX: E11.621 Type 2 diabetes mellitus with foot ulcer (principal); L97.512 Non-pressure chronic ulcer of other part of right foot with fat layer exposed; L08.9 Local infection of the skin and subcutaneous tissue, unspecified; E11.40 Type 2 diabetes mellitus with diabetic neuropathy, unspecified; I87.2 Venous insufficiency (chronic) (peripheral); L97.322 Non-pressure chronic ulcer of left ankle with fat layer exposed; R60.0 Localized edema; I89.0 Lymphedema, not elsewhere classified; I45.81 Long QT syndrome; E66.01 Morbid (severe) obesity due to excess calories; F12.90 Cannabis use, unspecified, uncomplicated; Z72.0 Tobacco use; Z79.891 Long term (current) use of opiate analgesic; Z68.41 Body mass index [BMI] 40.0-44.9, adult; Z79.4 Long term (current) use of insulin; Z79.84 Long term (current) use of oral hypoglycemic drugs | CPT/HCPCS: 11042; 87070; 87075; 87077; 87147; 87185; 87186; 87205; 93922; 99212 ==

== ENCOUNTER → 2021-08-14 11:14 | Outpatient (CLI) | payer MEDICARE, MEDICAID, SELFPAY | PROVIDERS: PCP Family Medicine; Referring Provider Family Medicine; Visit Provider Family Medicine | DX: E11.621 Type 2 diabetes mellitus with foot ulcer (principal); L97.512 Non-pressure chronic ulcer of other part of right foot with fat layer exposed; L97.511 Non-pressure chronic ulcer of other part of right foot limited to breakdown of skin; E11.40 Type 2 diabetes mellitus with diabetic neuropathy, unspecified; I87.2 Venous insufficiency (chronic) (peripheral); L97.322 Non-pressure chronic ulcer of left ankle with fat layer exposed; R60.0 Localized edema; I89.0 Lymphedema, not elsewhere classified; I45.81 Long QT syndrome; E66.01 Morbid (severe) obesity due to excess calories; F12.90 Cannabis use, unspecified, uncomplicated; Z72.0 Tobacco use; Z68.41 Body mass index [BMI] 40.0-44.9, adult; Z79.891 Long term (current) use of opiate analgesic | CPT/HCPCS: 15275; 99212; Q4110 ==

== ENCOUNTER → 2021-08-27 10:00 | Outpatient (CLI) | payer MEDICARE, MEDICAID, SELFPAY | PROVIDERS: PCP Family Medicine; Referring Provider Family Medicine; Visit Provider Family Medicine | DX: E11.621 Type 2 diabetes mellitus with foot ulcer (principal); L97.512 Non-pressure chronic ulcer of other part of right foot with fat layer exposed; E11.40 Type 2 diabetes mellitus with diabetic neuropathy, unspecified; I87.2 Venous insufficiency (chronic) (peripheral); L97.322 Non-pressure chronic ulcer of left ankle with fat layer exposed; L97.822 Non-pressure chronic ulcer of other part of left lower leg with fat layer exposed; L08.9 Local infection of the skin and subcutaneous tissue, unspecified; R60.0 Localized edema; I89.0 Lymphedema, not elsewhere classified; I45.81 Long QT syndrome; E66.01 Morbid (severe) obesity due to excess calories; F12.90 Cannabis use, unspecified, uncomplicated; Z72.0 Tobacco use; Z68.41 Body mass index [BMI] 40.0-44.9, adult; Z79.891 Long term (current) use of opiate analgesic; Z79.4 Long term (current) use of insulin; Z79.84 Long term (current) use of oral hypoglycemic drugs | CPT/HCPCS: 11042; 99213; 99214 ==

== ENCOUNTER → 2021-09-03 13:19 | Outpatient (CLI) | payer MEDICARE, MEDICAID, SELFPAY | PROVIDERS: PCP Family Medicine; Referring Provider Family Medicine; Visit Provider Family Medicine | DX: I87.2 Venous insufficiency (chronic) (peripheral) (principal); L97.322 Non-pressure chronic ulcer of left ankle with fat layer exposed; L97.822 Non-pressure chronic ulcer of other part of left lower leg with fat layer exposed; R60.0 Localized edema; E11.621 Type 2 diabetes mellitus with foot ulcer; L97.512 Non-pressure chronic ulcer of other part of right foot with fat layer exposed; L08.9 Local infection of the skin and subcutaneous tissue, unspecified; E11.40 Type 2 diabetes mellitus with diabetic neuropathy, unspecified; I89.0 Lymphedema, not elsewhere classified; F12.99 Cannabis use, unspecified with unspecified cannabis-induced disorder; Z72.0 Tobacco use; E66.01 Morbid (severe) obesity due to excess calories; Z68.41 Body mass index [BMI] 40.0-44.9, adult; Z79.891 Long term (current) use of opiate analgesic; Z79.4 Long term (current) use of insulin; Z79.84 Long term (current) use of oral hypoglycemic drugs | CPT/HCPCS: 29580; 99214 ==

== ENCOUNTER → 2021-09-24 13:32 | Outpatient (CLI) | payer MEDICARE, MEDICAID, OTHER, SELFPAY | PROVIDERS: PCP Family Medicine; Referring Provider Family Medicine; Visit Provider Family Medicine | DX: I87.2 Venous insufficiency (chronic) (peripheral) (principal); L97.322 Non-pressure chronic ulcer of left ankle with fat layer exposed; L97.822 Non-pressure chronic ulcer of other part of left lower leg with fat layer exposed; E11.621 Type 2 diabetes mellitus with foot ulcer; L97.512 Non-pressure chronic ulcer of other part of right foot with fat layer exposed; L08.9 Local infection of the skin and subcutaneous tissue, unspecified; B96.29 Other Escherichia coli [E. coli] as the cause of diseases classified elsewhere; R60.0 Localized edema; I89.0 Lymphedema, not elsewhere classified; E66.01 Morbid (severe) obesity due to excess calories; F12.90 Cannabis use, unspecified, uncomplicated; Z72.0 Tobacco use; Z68.41 Body mass index [BMI] 40.0-44.9, adult; Z79.891 Long term (current) use of opiate analgesic | CPT/HCPCS: 99212; 99213 ==

== ENCOUNTER → 2021-10-01 11:19 | Outpatient (CLI) | payer MEDICARE, MEDICAID, OTHER, SELFPAY | PROVIDERS: PCP Family Medicine; Referring Provider Family Medicine; Visit Provider Family Medicine | DX: I87.2 Venous insufficiency (chronic) (peripheral) (principal); L97.512 Non-pressure chronic ulcer of other part of right foot with fat layer exposed; L97.322 Non-pressure chronic ulcer of left ankle with fat layer exposed; L97.822 Non-pressure chronic ulcer of other part of left lower leg with fat layer exposed; E11.621 Type 2 diabetes mellitus with foot ulcer; R60.9 Edema, unspecified; I89.0 Lymphedema, not elsewhere classified; L08.9 Local infection of the skin and subcutaneous tissue, unspecified; L95.0 Livedoid vasculitis; Z72.0 Tobacco use; Z79.891 Long term (current) use of opiate analgesic; E66.9 Obesity, unspecified; Z68.41 Body mass index [BMI] 40.0-44.9, adult; F12.90 Cannabis use, unspecified, uncomplicated | CPT/HCPCS: 99214; 99215 ==

== ENCOUNTER → 2021-10-05 13:03 | Outpatient (CLI) | payer MEDICARE, MEDICAID, OTHER, SELFPAY ==
--- NOTE | 2021-10-05 13:07 | DI.MRI.S_ITS ---
PROCEDURE: MR FOOT RT WO/W CON INDICATIONS: Type 2 diabetes mellitus with foot ulcer TECHNIQUE: Noncontrast sagittal T1 spin echo and T2 fast spin echo with fat saturation, long-axis T1 spin echo and T2 fast spin echo with fat saturation; short-axis T1 spin echo, proton density fast spin echo, and T2 fast spin echo with fat saturation through the forefoot. Post-contrast short axis, long axis, and sagittal T1 spin echo with fat saturation through the forefoot. COMPARISON: [facility], CR, XR FOOT 3+ VIEWS RIGHT, 10/04/2020, 15:38. [facility], MR, MR FOOT LT WO/W CON, 03/24/2021, 14:43. FINDINGS: Image quality: Images are degraded by motion artifact Bones and joints: No suspicious osseous enhancement. No bone marrow contusions or metatarsal stress fractures. The sesamoid bones appear in expected positions, without internal edema. No metatarsophalangeal joint degeneration. No intraosseous lesions. Soft tissues: Small focus of dorsal soft tissue enhancement is seen (12-39) with suggestion of subcutaneous gas, which likely corresponds to the patient's foot wound. Diffuse reticulated and confluent T2 hyperintense signal within the dorsal subcutaneous fat, compatible with cellulitis. No abnormal fluid collection is appreciated to suggest an abscess. The visualized plantar foot muscles demonstrate normal signal and bulk. Visualized flexor and extensor tendons appear intact, without tenosynovitis. The distal insertions of the peroneus brevis and longus tendons appear intact. The principal Lisfranc ligament appears intact. Sagittal images demonstrate no evidence for plantar plate tears. IMPRESSION: 1. No MR evidence of osteomyelitis. 2. Dorsal soft tissue edema/cellulitis with suspected foot wound as detailed above. Dictated by: Yves Cardozo M.D. on 10/05/2021 at 17:15 Approved by: Yves Cardozo M.D. on 10/05/2021 at 17:20
== END ==
PROVIDERS: PCP Family Medicine; Referring Provider Family Medicine; Visit Provider Family Medicine
DX: E11.621 Type 2 diabetes mellitus with foot ulcer (principal); L97.512 Non-pressure chronic ulcer of other part of right foot with fat layer exposed
CPT/HCPCS: 73720

== ENCOUNTER → 2021-10-09 12:42 | Outpatient (CLI) | payer MEDICARE, MEDICAID, OTHER, SELFPAY | PROVIDERS: PCP Family Medicine; Referring Provider Family Medicine; Visit Provider Family Medicine | DX: I87.2 Venous insufficiency (chronic) (peripheral) (principal); L97.512 Non-pressure chronic ulcer of other part of right foot with fat layer exposed; L97.322 Non-pressure chronic ulcer of left ankle with fat layer exposed; L97.822 Non-pressure chronic ulcer of other part of left lower leg with fat layer exposed; E11.621 Type 2 diabetes mellitus with foot ulcer; I89.0 Lymphedema, not elsewhere classified; Z72.0 Tobacco use; Z79.891 Long term (current) use of opiate analgesic; R60.0 Localized edema; L53.9 Erythematous condition, unspecified | CPT/HCPCS: 97597; 97598; 99214 ==

== ENCOUNTER → 2021-10-17 11:09 | Outpatient (CLI) | payer MEDICARE, OTHER, MEDICAID, SELFPAY | PROVIDERS: PCP Family Medicine; Referring Provider Family Medicine; Visit Provider Family Medicine | DX: I87.2 Venous insufficiency (chronic) (peripheral) (principal); L97.322 Non-pressure chronic ulcer of left ankle with fat layer exposed; L97.822 Non-pressure chronic ulcer of other part of left lower leg with fat layer exposed; E11.621 Type 2 diabetes mellitus with foot ulcer; L97.512 Non-pressure chronic ulcer of other part of right foot with fat layer exposed; I89.0 Lymphedema, not elsewhere classified; L95.0 Livedoid vasculitis; Z72.0 Tobacco use; Z79.891 Long term (current) use of opiate analgesic | CPT/HCPCS: 99212 ==

== ENCOUNTER → 2021-10-31 11:23 | Outpatient (CLI) | payer MEDICARE, MEDICAID, SELFPAY | PROVIDERS: PCP Family Medicine; Referring Provider Family Medicine; Visit Provider Family Medicine | DX: I87.2 Venous insufficiency (chronic) (peripheral) (principal); L97.322 Non-pressure chronic ulcer of left ankle with fat layer exposed; L97.822 Non-pressure chronic ulcer of other part of left lower leg with fat layer exposed; E11.621 Type 2 diabetes mellitus with foot ulcer; L97.512 Non-pressure chronic ulcer of other part of right foot with fat layer exposed; I89.0 Lymphedema, not elsewhere classified; Z72.0 Tobacco use; Z79.891 Long term (current) use of opiate analgesic; R60.0 Localized edema | CPT/HCPCS: 99212; 99213 ==

== ENCOUNTER 2021-11-28 11:42 | Inpatient (IN) | payer MEDICARE, MEDICAID, SELFPAY ==
[2021-11-28] VITALS (17 sets, daily range): BP systolic 107–152; BP diastolic 52–82; PULSE 90–106; RESP 12–23; TEMP 36.2–36.6; O2SAT 93–100; BMI 42.2
--- NOTE | 2021-11-28 10:05 | DI.US.S_ITS ---
PROCEDURE: US ABDOMEN LIMITED INDICATIONS: RUQ. ELEVATED BILIRUBIN; AST/ALT TECHNIQUE: Real-time focused scanning was performed of the abdomen, with image documentation. COMPARISON: [facility], US, US ABDOMEN COMPLETE, 12/14/2019, 9:52. [facility], US, US ABDOMEN COMPLETE, 07/03/2020, 11:26. [facility], CT, CT KUB, 10/31/2020, 11:59. FINDINGS: The liver demonstrates enlarged size. The liver demonstrates generalized mildly increased echogenicity. This decreases ultrasound sensitivity for detection of hepatic masses. The main portal vein demonstrates normal size and demonstrates normal appearing, hepatopetal flow. Multiple gallstones are seen within the gallbladder neck, with the largest measuring 1.5 cm. The gallbladder wall is not thickened, measuring 3 mm or less. No specific pericholecystic fluid is seen. The sonographic Hoskins sign is negative. There is mild biliary dilatation, the common bile duct measures 9 mm. The pancreas is not seen. This study is limited by body habitus. IMPRESSION: Enlarged, fatty liver. Multiple gallstones are seen within the gallbladder neck, without additional sonographic signs of cholecystitis. Dictated by: Akbar Vázquez M.D. on 11/29/2021 at 10:15 Approved by: Akbar Vázquez M.D. on 11/29/2021 at 10:18
--- NOTE | 2021-11-28 13:00 | ED.EXTPRO ---
HPI - Extremity Problem <Hollie Butler [facility] - Last Filed: 11/28/21 18:47> General Chief complaint: Extremity Problem,Nontraumatic Stated complaint: Leg infection Time Seen by Provider: 11/28/21 12:35 Mode of arrival: Ambulatory History of Present Illness HPI Narrative: This is a 41-year-old male with history of insulin-dependent diabetes, on methadone, with a chronic left foot wound for over 1 year who presents to the emergency department complaining of infection spreading up his left leg to his mid thigh, he feels fatigued, states it has been 3 days of worsening and he had court yesterday and was not able to come to the emergency department until today. Patient states that he skipped his methadone dose yesterday, he states he went and got his dose today and is feeling well but diaphoretic. Patient denies any chest pain, shortness of breath, wheezing, feeling faint, lightheadedness, dizziness, vision changes, hypoglycemia, states his last blood sugar was 180. Patient states he has was missed his last few appointments with Dr. Batres, neurology tech. Patient denies any other substance use, states he is allergic to iodine but denies any other allergies to antibiotics. Patient has a history of IV drug use but states he has been clean and on methadone and had his dose given just prior to arrival. Patient has a history of right diabetic foot ulcers, chart review shows that they have grown Enterococcus faecalis, and Staphylococcus capitis, E coli, corynebacterium striatum, and kocuria kristinae. Related Data Home Medications Medication Instructions Recorded Confirmed empagliflozin 25 mg tablet 25 mg PO DAILY 03/20/21 11/28/21 (Jardiance) insulin glargine 100 unit/mL (3 40 unit SUBCUT BID 03/20/21 11/28/21 mL) subcutaneous pen (Lantus Solostar U-100 Insulin) lisinopril 20 mg tablet 20 mg PO DAILY 03/20/21 11/28/21 metformin 1,000 mg tablet 1,000 mg PO DAILY 03/20/21 11/28/21 methadone 10 mg tablet 115 mg PO DAILY 03/20/21 11/28/21 topiramate 25 mg tablet 50 mg PO DAILY 03/20/21 11/28/21 pentoxifylline 400 mg 400 mg PO TID 11/28/21 11/28/21 tablet,extended release prednisone 10 mg tablet 10 mg PO DAILY 11/28/21 11/28/21 Allergies Allergy/AdvReac Type Severity Reaction Status Date / Time iodine Allergy Verified 03/20/21 05:22 Review of Systems <BUBBA Patton - Last Filed: 11/28/21 18:47> Review of Systems Narrative: General: denies fever, chills, malaise, sweats, fatigue Head/Neck: denies headache, neck pain, dizziness Eyes: denies visual changes, eye pain Cardio: denies chest pain, palpitations, edema Respiratory: denies dyspnea, cough, orthopnea GI: denies abdominal pain, nausea, vomiting, or diarrhea : denies dysuria, hematuria, urinary retention, frequency or incontinence MSK: denies joint pain, muscle weakness, endorses left leg pain and erythema which goes all the way up to his mid thigh, he states that his sensation is decreased in bilateral feet. Skin: denies rash, itching, skin lesions or other Neuro: denies numbness, tingling Patient History <BUBBA Patton - Last Filed: 11/28/21 18:47> Medical History Chronic venous hypertension with ulcer Chronic, continuous use of opioids Obesity Type 2 diabetes mellitus Surgical History No pertinent past surgical history Family History Mother Breast cancer Father Diabetes mellitus Social History household members: other Smoking Status: Current every day smoker alcohol intake: former Smoking Status: Current every day smoker alcohol intake frequency: other Substance Use Type: does not use Exam <BUBBA Patton - Last Filed: 11/28/21 18:47> Narrative Exam Narrative: Independently reviewed vitals signs and nursing notes. General: Obese, sitting in wheelchair, mild amount of diaphoresis on his scalp, appears tired and fatigued, patient states it is his methadone he was just does prior to arrival, he is cooperative, comfortable, in no acute distress, wearing shorts, erythema and edema present in his left leg up to his mid thigh. Head: atraumatic, symmetrical facial expressions Neck: supple, atraumatic, without lymphadenopathy. Eyes: pupils equal round and reactive, EOMI, conjunctiva normal Nose: nares patent, no rhinorrhea Mouth/Throat: uvula midline, moist mucus membranes Cardiovascular: Sinus tachycardia, S1-S2 without murmur, no dependent edema bilaterally, left ankle edema related to his wound and cellulitis, warm extremities x4, cap refills less than 2 seconds Respiratory: normal effort, able to speak in complete sentences, no audible wheezing, stridor, or rales. No retractions or tachypnea. GI: abdomen soft, obese nontender to palpation, nondistended, no masses, no exquisite tenderness with exam, without guarding or rebound. MSK: moves all extremities, sitting in wheelchair, he is ambulatory but due to his size, does not ambulate very well, neurovascularly intact, no weakness Skin: brisk capillary refill, left medial malleolar wound is the largest on his left lower extremity, he has an ulcer on the medial aspect of his lower leg midshaft, he has cellulitis up to his mid thigh nearing his groin, it is outlined, does not extend into his groin. No fluctuance, no palpable abscess or fluid collection Neuro: normal speech and cognition, A&O x3, normal tone Psych: mental status is grossly normal, congruent mood, normal affect, pleasant and cooperative Initial Vital Signs Initial Vital Signs: Vital Signs Temperature 97.6 F 11/28/21 12:09 Pulse Rate 104 H 11/28/21 12:09 Respiratory Rate 18 11/28/21 12:09 Blood Pressure 127/66 11/28/21 12:09 Pulse Oximetry 94 11/28/21 12:09 <Ute Perez DO - Last Filed: 11/29/21 08:29> Initial Vital Signs Initial Vital Signs: Vital Signs Temperature 97.6 F 11/28/21 12:09 Pulse Rate 104 H 11/28/21 12:09 Respiratory Rate 18 11/28/21 12:09 Blood Pressure 127/66 11/28/21 12:09 Pulse Oximetry 94 11/28/21 12:09 Course <BUBBA Patton - Last Filed: 11/28/21 18:47> Orders Ordered: ED Orders 11/29/21 02:00 Urinalysis and Microscopic Stat Acetaminophen (Acetaminophen 325 Mg Tablet) 975 mg PO Q8HR PRN PRN Reason: Pain, Mild (1-3) Enoxaparin Sodium (Enoxaparin 40 Mg/0.4 Ml Syringe) 40 mg SUBCUT BID [facility] Last Admin: 11/28/21 21:31 Dose: 40 mg Documented by: GAMALIEL Sodium Chloride (Normal Saline 0.9%) 1,000 mls @ 100 mls/hr IV CONT [facility] Last Admin: 11/29/21 00:00 Dose: 100 mls/hr Documented by: Infusion: 11/29/21 00:00 Dose: 100 mls/hr Documented by: Admin: 11/28/21 18:38 Dose: 100 mls/hr Documented by: MARIO Ceftriaxone Sodium 1,000 mg/ (Sodium Chloride) 100 mls @ 200 mls/hr IV Q24H [facility] Dextrose (D10w) 250 mls @ 999 mls/hr IV PRN PRN PRN Reason: Hypoglycemia Vancomycin HCl/Dextrose (Vancomycin) 2,000 mg in 400 mls @ 200 mls/hr IV Q12H [facility] Last Admin: 11/29/21 04:27 Dose: 200 mls/hr Documented by: GAMALIEL Insulin Glargine (Insulin Glargine 100 Unit/Ml 3ml Pen) 40 unit SUBCUT BID [facility] Last Admin: 11/28/21 21:31 Dose: 40 unit Documented by: GAMALIEL Cosigned by: TYRELL Insulin Human Lispro (Insulin Lispro 100 Unit/Ml 3ml Vial) 0 unit SUBCUT [facility]CHS [facility]; Protocol Last Admin: 11/28/21 21:32 Dose: 1 unit Documented by: GAMALIEL Cosigned by: TYRELL Methadone HCl (Methadone 10 Mg Tablet) 110 mg PO DAILY [facility] Methadone HCl (Methadone 5 Mg Tablet) 5 mg PO DAILY [facility] Naloxone HCl (Naloxone 0.4 Mg/Ml Vial) 0.2 mg IV Q2MIN PRN PRN Reason: Opiate Reversal Ondansetron HCl (Ondansetron 4 Mg/2 Ml Inj) 4 mg IV Q8HR PRN PRN Reason: Nausea And Vomiting Topiramate (Topiramate 25 Mg Tablet) 50 mg PO DAILY [facility] Vancomycin HCl (Vancomycin Trough) 1 [place] [facility] Stop: 11/30/21 04:31 Vancomycin HCl (Vancomycin Peak) 1 request [facility] Stop: 11/30/21 08:01 Discontinued Medications Dextrose (Dextrose 50 % In Water 25 Gm/50 Ml Syringe) 25 gm IV PRN PRN PRN Reason: Hypoglycemia Enoxaparin Sodium (Enoxaparin 40 Mg/0.4 Ml Syringe) 40 mg SUBCUT DAILY [facility] Lactated Ringer's (Lactated Ringers) 4,354.5 mls @ 1,451.5 mls/hr 30 ml/kg infuse over 3 hr (4354.5 ml) IV NOW ONE Stop: 11/28/21 15:34 Last Admin: 11/28/21 14:02 Dose: Not Given Documented by: JESSICA Levofloxacin (Levaquin) 750 mg in 150 mls @ 100 mls/hr IV NOW ONE Stop: 11/28/21 14:07 Last Infusion: 11/28/21 15:46 Dose: 0 mls/hr Documented by: Admin: 11/28/21 13:43 Dose: 100 mls/hr Documented by: JESSICA Vancomycin HCl/Dextrose (Vancomycin) 2,000 mg in 400 mls @ 200 mls/hr IV NOW ONE Stop: 11/28/21 14:45 Last Infusion: 11/28/21 18:15 Dose: 0 mls/hr Documented by: Admin: 11/28/21 17:15 Dose: 200 mls/hr Documented by: MILENA Lactated Ringer's (Lactated Ringers) 1,000 mls @ 1,000 mls/hr IV BOLUS ONE Stop: 11/28/21 14:33 Last Admin: 11/28/21 14:02 Dose: Not Given Documented by: JESSICA Sodium Chloride (Normal Saline 0.9%) 1,000 mls @ 1,000 mls/hr IV BOLUS ONE Stop: 11/28/21 14:35 Last Infusion: 11/28/21 18:00 Dose: 0 mls/hr Documented by: Admin: 11/28/21 13:43 Dose: 1,000 mls/hr Documented by: JESSICA Meropenem 500 mg/ Sodium (Chloride) 100 mls @ 200 mls/hr IV NOW ONE Stop: 11/28/21 14:47 Last Infusion: 11/28/21 17:14 Dose: 0 mls/hr Documented by: Admin: 11/28/21 16:32 Dose: 200 mls/hr Documented by: ALEXSANDRAONEJoshua Insulin Glargine (Insulin Glargine 100 Unit/Ml 3ml Pen) 10 unit SUBCUT 2100 [facility] Vancomycin HCl (Vancomycin Per Pharmacy) 1 request MISC NOW ONE Stop: 11/28/21 12:39 Last Admin: 11/28/21 13:44 Dose: 1 request Documented by: JESSICA Vancomycin HCl (Vancomycin Per Pharmacy) 1 request MISC NOW ONE Stop: 11/28/21 18:53 Last Admin: 11/28/21 20:48 Dose: Not Given Documented by: CRISTA Vital Signs Vital signs: Vital Signs - 8 hr 11/28/21 12:09 11/28/21 13:04 11/28/21 13:09 Temperature 97.6 F Pulse Rate 104 H 104 H 102 H Respiratory Rate 18 14 13 Blood Pressure 127/66 123/73 Pulse Oximetry 94 94 94 <Ute Perez, - Last Filed: 11/29/21 08:29> Orders Ordered: ED Orders 11/29/21 02:00 Urinalysis and Microscopic Stat Acetaminophen (Acetaminophen 325 Mg Tablet) 975 mg PO Q8HR PRN PRN Reason: Pain, Mild (1-3) Enoxaparin Sodium (Enoxaparin 40 Mg/0.4 Ml Syringe) 40 mg SUBCUT BID [facility] Last Admin: 11/28/21 21:31 Dose: 40 mg Documented by: GAMALIEL Sodium Chloride (Normal Saline 0.9%) 1,000 mls @ 100 mls/hr IV CONT [facility] Last Admin: 11/29/21 00:00 Dose: 100 mls/hr Documented by: Infusion: 11/29/21 00:00 Dose: 100 mls/hr Documented by: Admin: 11/28/21 18:38 Dose: 100 mls/hr Documented by: [email or web address] Ceftriaxone Sodium 1,000 mg/ (Sodium Chloride) 100 mls @ 200 mls/hr IV Q24H [facility] Dextrose (D10w) 250 mls @ 999 mls/hr IV PRN PRN PRN Reason: Hypoglycemia Vancomycin HCl/Dextrose (Vancomycin) 2,000 mg in 400 mls @ 200 mls/hr IV Q12H [facility] Last Admin: 11/29/21 04:27 Dose: 200 mls/hr Documented by: GAMALIEL Insulin Glargine (Insulin Glargine 100 Unit/Ml 3ml Pen) 40 unit SUBCUT BID [facility] Last Admin: 11/28/21 21:31 Dose: 40 unit Documented by: GAMALIEL Cosigned by: TYRELL Insulin Human Lispro (Insulin Lispro 100 Unit/Ml 3ml Vial) 0 unit SUBCUT ACHS [facility]; Protocol Last Admin: 11/28/21 21:32 Dose: 1 unit Documented by: GAMALIEL Cosigned by: TYRELL Methadone HCl (Methadone 10 Mg Tablet) 110 mg PO DAILY [facility] Methadone HCl (Methadone 5 Mg Tablet) 5 mg PO DAILY [facility] Naloxone HCl (Naloxone 0.4 Mg/Ml Vial) 0.2 mg IV Q2MIN PRN PRN Reason: Opiate Reversal Ondansetron HCl (Ondansetron 4 Mg/2 Ml Inj) 4 mg IV Q8HR PRN PRN Reason: Nausea And Vomiting Topiramate (Topiramate 25 Mg Tablet) 50 mg PO DAILY [facility] Vancomycin HCl (Vancomycin Trough) 1 [place] [facility] Stop: 11/30/21 04:31 Vancomycin HCl (Vancomycin Peak) 1 [place] [facility] Stop: 11/30/21 08:01 Discontinued Medications Dextrose (Dextrose 50 % In Water 25 Gm/50 Ml Syringe) 25 gm IV PRN PRN PRN Reason: Hypoglycemia Enoxaparin Sodium (Enoxaparin 40 Mg/0.4 Ml Syringe) 40 mg SUBCUT DAILY [facility] Lactated Ringer's (Lactated Ringers) 4,354.5 mls @ 1,451.5 mls/hr 30 ml/kg infuse over 3 hr (4354.5 ml) IV NOW ONE Stop: 11/28/21 15:34 Last Admin: 11/28/21 14:02 Dose: Not Given Documented by: JESSICA Levofloxacin (Levaquin) 750 mg in 150 mls @ 100 mls/hr IV NOW ONE Stop: 11/28/21 14:07 Last Infusion: 11/28/21 15:46 Dose: 0 mls/hr Documented by: Admin: 11/28/21 13:43 Dose: 100 mls/hr Documented by: JESSICA Vancomycin HCl/Dextrose (Vancomycin) 2,000 mg in 400 mls @ 200 mls/hr IV NOW ONE Stop: 11/28/21 14:45 Last Infusion: 11/28/21 18:15 Dose: 0 mls/hr Documented by: Admin: 11/28/21 17:15 Dose: 200 mls/hr Documented by: MILENA Lactated Ringer's (Lactated Ringers) 1,000 mls @ 1,000 mls/hr IV BOLUS ONE Stop: 11/28/21 14:33 Last Admin: 11/28/21 14:02 Dose: Not Given Documented by: JESSICA Sodium Chloride (Normal Saline 0.9%) 1,000 mls @ 1,000 mls/hr IV BOLUS ONE Stop: 11/28/21 14:35 Last Infusion: 11/28/21 18:00 Dose: 0 mls/hr Documented by: Admin: 11/28/21 13:43 Dose: 1,000 mls/hr Documented by: JESSICA Meropenem 500 mg/ Sodium (Chloride) 100 mls @ 200 mls/hr IV NOW ONE Stop: 11/28/21 14:47 Last Infusion: 11/28/21 17:14 Dose: 0 mls/hr Documented by: Admin: 11/28/21 16:32 Dose: 200 mls/hr Documented by: ALEXSANDRAONEJoshua Insulin Glargine (Insulin Glargine 100 Unit/Ml 3ml Pen) 10 unit SUBCUT 2100 [facility]ANDA Vancomycin HCl (Vancomycin Per Pharmacy) 1 request MISC NOW ONE Stop: 11/28/21 12:39 Last Admin: 11/28/21 13:44 Dose: 1 request Documented by: JESSICA Vancomycin HCl (Vancomycin Per Pharmacy) 1 request MISC NOW ONE Stop: 11/28/21 18:53 Last Admin: 11/28/21 20:48 Dose: Not Given Documented by: CRISTA Vital Signs Vital signs: Vital Signs - 8 hr 11/28/21 12:09 11/28/21 13:04 11/28/21 13:09 Temperature 97.6 F Pulse Rate 104 H 104 H 102 H Respiratory Rate 18 14 13 Blood Pressure 127/66 123/73 Pulse Oximetry 94 94 94 MDM - Extremity (Nontraumatic) <Hollie Butler, [facility] - Last Filed: 11/28/21 18:47> Lab Data Result diagrams: 11/29/21 05:08 11/29/21 05:08 Labs: Lab Results 11/28/21 11/28/21 11/28/21 Range/Units 12:45 12:45 12:45 WBC (4.5-11.0) X10^3/uL RBC (4.5-5.9) X10^6/uL Hgb (13.5-17.5) g/dL Hct (41-53) % MCV (80-100) fL MCH (26-34) PG MCHC (30-36) % RDW (11.6-14.8) % Plt Count (150-400) X10^3/uL Neut % (Auto) (50-75) % Lymph % (Auto) (25-40) % Hernando % (Auto) (3-14) % Eos % (Auto) (2-4) % Baso % (Auto) (0-2) % Neut # (Auto) (2744-2518) /uL Lymph # (Auto) (3424-1194) /uL Hernando # (Auto) (0-900) /uL Eos # (Auto) (0-450) /uL Baso # (Auto) (0-100) /uL PT 22.9 H (10.1-12.7) SECONDS INR 2.0 H (0.9-1.3) Sodium 129 L (137-145) mmol/L Potassium 3.6 (3.4-5.1) mmol/L Chloride 100 (98-107) mmol/L Carbon Dioxide 24 (22-32) mmol/L BUN 14 (9-20) mg/dL Creatinine 0.49 L (0.66-1.25) mg/dL Estimated GFR > 60 (>60) mL/min BUN/Creatinine Ratio 28.6 H (6-22) Glucose 178 H (70-100) mg/dL Lactate 0.9 (0.7-2.1) mmol/L Calcium 8.6 (8.4-10.2) mg/dL Magnesium (1.6-2.3) mg/dL Total Bilirubin 3.0 H (0.2-1.3) mg/dL AST 131 H (17-59) IU/L ALT 84 H (<50) IU/L Alkaline Phosphatase 94 (38-126) U/L Total Creatine Kinase 87 (55-170) U/L CK-MB (CK-2) TNP CK-MB (CK-2) Rel Index TNP Troponin I < 0.012 (0.01-0.034) ng/mL Total Protein 6.6 (6.3-8.2) g/dL Albumin 3.2 L (3.5-5.0) g/dL Globulin 3.4 (1.7-4.1) g/dL Albumin/Globulin Ratio 0.9 L (1.0-2.8) Procalcitonin 1.36 H (<0.5) ng/mL SARS-CoV-2 (PCR) (Negative) 11/28/21 11/28/21 11/28/21 Range/Units 12:45 13:00 13:00 WBC 10.5 (4.5-11.0) X10^3/uL RBC 3.94 L (4.5-5.9) X10^6/uL Hgb 10.6 L (13.5-17.5) g/dL Hct 31.3 L (41-53) % MCV 79.5 L (80-100) fL MCH 26.8 (26-34) PG MCHC 33.7 (30-36) % RDW 17.8 H (11.6-14.8) % Plt Count 114 L (150-400) X10^3/uL Neut % (Auto) 91.0 H (50-75) % Lymph % (Auto) 3.9 L (25-40) % Hernando % (Auto) 4.9 (3-14) % Eos % (Auto) 0.0 L (2-4) % Baso % (Auto) 0.2 (0-2) % Neut # (Auto) 9500 H (9769-6474) /uL Lymph # (Auto) 400 L (9989-2876) /uL Hernando # (Auto) 500 (0-900) /uL Eos # (Auto) 0 (0-450) /uL Baso # (Auto) 0 (0-100) /uL PT (10.1-12.7) SECONDS INR (0.9-1.3) Sodium (137-145) mmol/L Potassium (3.4-5.1) mmol/L Chloride (98-107) mmol/L Carbon Dioxide (22-32) mmol/L BUN (9-20) mg/dL Creatinine (0.66-1.25) mg/dL Estimated GFR (>60) mL/min BUN/Creatinine Ratio (6-22) Glucose (70-100) mg/dL Lactate (0.7-2.1) mmol/L Calcium (8.4-10.2) mg/dL Magnesium 1.7 (1.6-2.3) mg/dL Total Bilirubin (0.2-1.3) mg/dL AST (17-59) IU/L ALT (<50) IU/L Alkaline Phosphatase (38-126) U/L Total Creatine Kinase (55-170) U/L CK-MB (CK-2) CK-MB (CK-2) Rel Index Troponin I (0.01-0.034) ng/mL Total Protein (6.3-8.2) g/dL Albumin (3.5-5.0) g/dL Globulin (1.7-4.1) g/dL Albumin/Globulin Ratio (1.0-2.8) Procalcitonin (<0.5) ng/mL SARS-CoV-2 (PCR) Negative (Negative) Imaging Data Extremity x-ray #1: Radiologist's Impression: PROCEDURE:? XR TIBIA FIBULA LT 2V ? INDICATIONS:? osteo vs sub q ? TECHNIQUE:? 2 views of the tibia and fibula were acquired.? ? COMPARISON:? Merged With [facility], CR, XR ANKLE LT 2V, 11/28/2021, 14:00. ? FINDINGS:? ? Bones:? No acute fracture or dislocation.? No suspicious bony lesions. ? Soft tissues:? There is trace subcutaneous emphysema or a soft tissue defect visualized along the medial aspect of the calf. ? IMPRESSION:? No suspicious bony lesions.? Questionable soft tissue laceration versus subcutaneous emphysema only partially characterized on this limited view of the lower extremity. ? ? Dictated by: Christine Burnette M.D. on 11/28/2021 at 14:36 ? ? Approved by: Christine Burnette M.D. on 11/28/2021 at 14:37 ? Extremity x-ray #2: Radiologist's Impression: PROCEDURE:? XR FOOT LT MIN 3V ? INDICATIONS:? osteo vs sub q ? TECHNIQUE:? 3 views of the foot were acquired.? ? COMPARISON:? None. ? FINDINGS:? ? Bones:? No acute, displaced fracture or evidence of cortical destruction.? Osteophytosis of the anterior tibiotalar articulation.? No suspicious bony lesions.? ? Soft tissues:? Trace tibiotalar joint effusion.? ? ? IMPRESSION:? No definitive osseous abnormality. ? If clinical concern remains, consider CT or MR imaging as well as indicating area of concern.? ? ? Dictated by: Yves Cardozo M.D. on 11/28/2021 at 14:39 ? ? Approved by: Yves Cardozo M.D. on 11/28/2021 at 14:50 ? Extremity x-ray #3: Radiologist's Impression: PROCEDURE:? XR FEMUR LT MIN 2V ? INDICATIONS:? osteo vs sub q ? TECHNIQUE:? 2 views of the femur were acquired.? ? COMPARISON:? None. ? FINDINGS:? ? Bones:? No fractures or dislocations.? No suspicious bony lesions.? ? Soft tissues:? Subcutaneous edema is present along the inner aspect of the thigh. ? IMPRESSION:? Edematous change.? No underlying bony abnormality. ? ? Dictated by: Christine Burnette M.D. on 11/28/2021 at 14:39 ? ? Approved by: Christine Burnette M.D. on 11/28/2021 at 14:39 ? LT ankle XR: Radiologist's Impression: PROCEDURE:? XR ANKLE LT 2V ? INDICATIONS:? osteo vs sub q ? TECHNIQUE:? 3 views of the ankle were acquired.? ? COMPARISON:? None. ? FINDINGS:? ? Bones:? No fractures or dislocations.? Ankle mortise is normally aligned.? No suspicious bony lesions.? Degenerative changes present at the anterior tibiotalar joint. ? Soft tissues:? No tibiotalar joint effusion.? There is diffuse edema throughout the subcutaneous tissues.? Subcutaneous emphysema or a soft tissue laceration is visualized within the posterior medial aspect of the calf.? Subtle soft tissue calcification is also noted in this region.? No unexpected radiopaque foreign bodies. ? ? IMPRESSION:? Questionable soft tissue defect versus subcutaneous emphysema in the setting of diffuse edema.? Findings suggest cellulitis.? Gas-forming infection cannot be excluded. ? Dictated by: Christine Burnette M.D. on 11/28/2021 at 14:37 ? ? Approved by: Christine Burnette M.D. on 11/28/2021 at 14:39 ? MRI left LE: Radiologist's Impression: PROCEDURE:? MR LOWER LEG LT WO/W CON ? INDICATIONS:? sub q air vs abscess vs osteo ? TECHNIQUE:? Noncontrast coronal T1 spin echo and STIR, sagittal T1 spin echo with fat saturation and STIR, axial T1 spin echo and T2 fast spin echo with fat saturation.? After the administration of contrast, axial/sagittal/coronal T1 spin echo with fat saturation through the left lower leg.? ? COMPARISON:? Merged With [facility], CR, XR TIBIA FIBULA LT 2V, 11/28/2021, 14:00.? Merged With [facility], MR, MR LOWER LEG LT WO/W CON, 03/24/2021, 14:03. ? FINDINGS:? Image quality:? Excellent.? ? Bones:? The visualized bone marrow demonstrates normal signal on all sequences.? The overlying cortex appears intact.? No abnormal intraosseous enhancement.? ? Soft tissues:? Diffuse subcutaneous soft tissue swelling and edema throughout left lower leg is seen suggestive of cellulitis.? Radiograph finding of subcutaneous emphysema in medial mid to distal lower leg soft tissue is not well seen on the current study.? There is no discrete drainable fluid collection.? No soft tissue masses are visualized.? The scanned muscles demonstrate normal overall bulk and internal signal.? ? IMPRESSION:? 1.? Diffuse cellulitis throughout left lower leg particularly along medial aspect of mid to distal lower leg.? No discrete drainable abscess collection is seen.? No definite subcutaneous emphysema is noted. 2. No underlying muscle involvement. 3. No evidence of osteomyelitis.? ? ? Dictated by: Rickie Sullivan M.D. on 11/28/2021 at 16:13 ? ? Approved by: Rickie Sullivan M.D. on 11/28/2021 at 16:17 ? ECG Data Interpretation: EKG independently reviewed by myself and reveals sinus tachycardia at [106] bpm with regular axis and intervals. No STEMI, ST segment changes, arrhythmia, or acute ischemic changes. MDM Narrative Medical decision making narrative: This is a 41-year-old male with past history of insulin dependant type 2 diabetes with chronic foot wound over the medial malleolus for over 1 year who presents to the emergency department for 3 days of worsening left leg infection which extends up to his mid anterior thigh with erythema, edema, tenderness to palpation, purulence discharge coming from his medial malleolus wound, he has additional wounds on the dorsum of his foot, left medial lower extremity with a 1 cm round diabetic ulcer without any abscess or discharge. Patient's left upper leg with cellulitis is outlined, extends close to his groin without extension into his groin. Patient has a history of IV drug use, currently is on methadone 115 mg daily, he states he skipped his dose yesterday because he had court, and came into the emergency department today as today was the soonest he could seek treatment for these wounds. He states that he has had worsening of his left leg infection over the last 3 days, he appears sedated on his methadone, declines any other substance use. He is neurologically intact, alert and oriented x3, appropriately interactive. He is obese, presented with mild tachycardia with heart rate of 102 with a concern for sepsis for his left leg infection. Lab work does not show leukocytosis, white blood cell count of 10.5 with a significant left shift, patient has mild thrombocytopenia with a platelet count of 114, compared to his prior of 130, sodium corrected for hyperglycemia is 130, patient does not have any neuro deficit or altered mentation at this time. Creatinine is 0.49, BUN creatinine ratio is 28.6 with a GFR over 60. Glucose 178, total bilirubin is elevated at 3.0, AST is elevated at 131, ALT 84 with normal prior results in June 2021. Troponin is negative, CK-MB in cardiac enzymes were negative, procalcitonin is elevated at 1.36, COVID PCR is negative. X-rays of his left ankle, femur, foot and tib-fib were obtained which do not show any osteomyelitis, concern for subcu gas on left ankle and left tib-fib. On exam, his tib-fib wound is a hole without a dermal covering, his medial malleolar wound, does have an ulcer as well. Consultation with Dr. Roberts hospitalist for admission and consult for advanced imaging. He recommends MRI to determine if this is surgical. MRI is pending. Patient was treated after blood cultures and wound cultures were obtained with 1 L of normal saline after are 0.5 L of LR, which is over his 30 mls per ideal body weight kg. Patient's lactate was 0.9. EKG shows sinus tachycardia without any ST changes or arrhythmia. MRI left lower extremity shows diffuse cellulitis throughout the left lower leg particularly along the medial aspect of the mid to distal lower leg. No discrete drainable abscess collection is seen, no definite subcutaneous emphysema is noted, no underlying muscle involvement, no evidence of osteomyelitis. Patient was empirically treated with vancomycin, Levaquin, meropenem. Dr. Roberts was phoned for admission and he accepts. Patient was informed of lab and imaging results, diagnoses, consulting physicians, and treatment plan. I have spoken with the patient in regard to admission, patient understands and agrees. I have communicated the patient's evaluation and treatment plan to the admitting physician who agrees with admission. All questions answered at this time. <Ute Perez, - Last Filed: 11/29/21 08:29> Lab Data Labs: Lab Results 11/28/21 11/28/21 11/28/21 Range/Units 12:45 12:45 12:45 WBC (4.5-11.0) X10^3/uL RBC (4.5-5.9) X10^6/uL Hgb (13.5-17.5) g/dL Hct (41-53) % MCV (80-100) fL MCH (26-34) PG MCHC (30-36) % RDW (11.6-14.8) % Plt Count (150-400) X10^3/uL Neut % (Auto) (50-75) % Lymph % (Auto) (25-40) % [place] % (Auto) (3-14) % Eos % (Auto) (2-4) % Baso % (Auto) (0-2) % Neut # (Auto) (0253-7668) /uL Lymph # (Auto) (0602-0568) /uL [place] # (Auto) (0-900) /uL Eos # (Auto) (0-450) /uL Baso # (Auto) (0-100) /uL PT 22.9 H (10.1-12.7) SECONDS INR 2.0 H (0.9-1.3) Sodium 129 L (137-145) mmol/L Potassium 3.6 (3.4-5.1) mmol/L Chloride 100 (98-107) mmol/L Carbon Dioxide 24 (22-32) mmol/L BUN 14 (9-20) mg/dL Creatinine 0.49 L (0.66-1.25) mg/dL Estimated GFR > 60 (>60) mL/min BUN/Creatinine Ratio 28.6 H (6-22) Glucose 178 H (70-100) mg/dL Lactate 0.9 (0.7-2.1) mmol/L Calcium 8.6 (8.4-10.2) mg/dL Magnesium (1.6-2.3) mg/dL Total Bilirubin 3.0 H (0.2-1.3) mg/dL AST 131 H (17-59) IU/L ALT 84 H (<50) IU/L Alkaline Phosphatase 94 (38-126) U/L Total Creatine Kinase 87 (55-170) U/L CK-MB (CK-2) TNP CK-MB (CK-2) Rel Index TNP Troponin I < 0.012 (0.01-0.034) ng/mL Total Protein 6.6 (6.3-8.2) g/dL Albumin 3.2 L (3.5-5.0) g/dL Globulin 3.4 (1.7-4.1) g/dL Albumin/Globulin Ratio 0.9 L (1.0-2.8) Procalcitonin 1.36 H (<0.5) ng/mL SARS-CoV-2 (PCR) (Negative) 11/28/21 11/28/21 11/28/21 Range/Units 12:45 13:00 13:00 WBC 10.5 (4.5-11.0) X10^3/uL RBC 3.94 L (4.5-5.9) X10^6/uL Hgb 10.6 L (13.5-17.5) g/dL Hct 31.3 L (41-53) % MCV 79.5 L (80-100) fL MCH 26.8 (26-34) PG MCHC 33.7 (30-36) % RDW 17.8 H (11.6-14.8) % Plt Count 114 L (150-400) X10^3/uL Neut % (Auto) 91.0 H (50-75) % Lymph % (Auto) 3.9 L (25-40) % [place] % (Auto) 4.9 (3-14) % Eos % (Auto) 0.0 L (2-4) % Baso % (Auto) 0.2 (0-2) % Neut # (Auto) 9500 H (0600-9110) /uL Lymph # (Auto) 400 L (9946-3545) /uL [place] # (Auto) 500 (0-900) /uL Eos # (Auto) 0 (0-450) /uL Baso # (Auto) 0 (0-100) /uL PT (10.1-12.7) SECONDS INR (0.9-1.3) Sodium (137-145) mmol/L Potassium (3.4-5.1) mmol/L Chloride (98-107) mmol/L Carbon Dioxide (22-32) mmol/L BUN (9-20) mg/dL Creatinine (0.66-1.25) mg/dL Estimated GFR (>60) mL/min BUN/Creatinine Ratio (6-22) Glucose (70-100) mg/dL Lactate (0.7-2.1) mmol/L Calcium (8.4-10.2) mg/dL Magnesium 1.7 (1.6-2.3) mg/dL Total Bilirubin (0.2-1.3) mg/dL AST (17-59) IU/L ALT (<50) IU/L Alkaline Phosphatase (38-126) U/L Total Creatine Kinase (55-170) U/L CK-MB (CK-2) CK-MB (CK-2) Rel Index Troponin I (0.01-0.034) ng/mL Total Protein (6.3-8.2) g/dL Albumin (3.5-5.0) g/dL Globulin (1.7-4.1) g/dL Albumin/Globulin Ratio (1.0-2.8) Procalcitonin (<0.5) ng/mL SARS-CoV-2 (PCR) Negative (Negative) Discharge Plan Departure Patient Disposition: Admitted As Inpatient Clinical Impression: Acute hyponatremia, Diabetic ulcer of lower leg Cellulitis Qualifiers: Site of cellulitis: extremity Site of cellulitis of extremity: lower extremity Laterality: left Qualified Code(s): L03.116 - Cellulitis of left lower limb Sepsis Qualifiers: Sepsis type: sepsis due to unspecified organism Sepsis acute organ dysfunction status: with acute organ dysfunction Hepatic coma status: without hepatic coma Severe sepsis shock status: without septic shock Admit Date/Time: 11/28/21 16:50 Admit Provider: Seun Roberts <Ute Perez DO - Last Filed: 11/29/21 08:29> [facility] Attending Lise Attestation: I was immediately available in the department for consultation. Documentation has been reviewed. I agree with assessment and plan.
[2021-11-28 13:10] LABS: Lactate (Lactic Acid) 0.9 mmol/L (0.7-2.1)
[2021-11-28 13:11] LABS: Alanine Aminotransferase 84 IU/L (<50); Albumin 3.2 g/dL (3.5-5.0); Albumin Globulin Ratio 0.9 (1.0-2.8); Alkaline Phosphatase 94 U/L (38-126); Aspartate Aminotransferase 131 IU/L (17-59); BUN Creatinine Ratio 28.6 (6-22); Blood Urea Nitrogen 14 mg/dL (9-20); Calcium 8.6 mg/dL (8.4-10.2); Carbon Dioxide 24 mmol/L (22-32); Chloride 100 mmol/L (98-107); Creatine Kinase 87 U/L (55-170); Estimated Glomerular Filt Rate > 60 mL/min (>60); Globulin 3.4 g/dL (1.7-4.1); Glucose 178 mg/dL (70-100); HEMOLYSIS < 15 (0-50); Potassium 3.6 mmol/L (3.4-5.1); Sodium 129 mmol/L (137-145); Total Protein 6.6 g/dL (6.3-8.2)
[2021-11-28 13:22] LABS: Add Manual Diff / Slide Review NO; Basophils Absolute Auto 0 /uL (0-100); Basophils Percent Auto 0.2 % (0-2); Eosinophils Absolute Auto 0 /uL (0-450); Hematocrit 31.3 % (41-53); Hemoglobin 10.6 g/dL (13.5-17.5); Lymphocytes Absolute Auto 400 /uL (1100-4500); Lymphocytes Percent Auto 3.9 % (25-40); Mean Corpuscular HGB Conc 33.7 % (30-36); Mean Corpuscular Hemoglobin 26.8 PG (26-34); Mean Corpuscular Volume 79.5 fL (80-100); Monocytes Absolute Auto 500 /uL (0-900); Monocytes Percent Auto 4.9 % (3-14); Neutrophils Absolute Auto 9500 /uL (1500-7000); Platelet Count 114 X10^3/uL (150-400); Red Blood Cell Count 3.94 X10^6/uL (4.5-5.9); Red Cell Distribution Width 17.8 % (11.6-14.8); White Blood Cell Count 10.5 X10^3/uL (4.5-11.0)
[2021-11-28 13:22] LABS: Troponin I < 0.012 ng/mL (0.01-0.034)
[2021-11-28 13:27] LABS: Procalcitonin 1.36 ng/mL (<0.5)
[2021-11-28 13:35] LABS: COVID19 -Nasal RAPID Negative (Negative)
[2021-11-28] MEDS: SODIUM CHLORIDE 0.9% 1,000 ML 1000 ML IV (13:43)
[2021-11-28] MEDS: levoFLOXacin 750 MG/150 ML PIGGYBACK 100 MG IV (13:43)
[2021-11-28] MEDS: VANCOMYCIN PER PHARMACY 1 REQUEST MISC (13:44)
--- NOTE | 2021-11-28 14:03 | DI.RAD.S_ITS ---
PROCEDURE: XR FOOT LT MIN 3V INDICATIONS: osteo vs sub q TECHNIQUE: 3 views of the foot were acquired. COMPARISON: None. FINDINGS: Bones: No acute, displaced fracture or evidence of cortical destruction. Osteophytosis of the anterior tibiotalar articulation. No suspicious bony lesions. Soft tissues: Trace tibiotalar joint effusion. IMPRESSION: No definitive osseous abnormality. If clinical concern remains, consider CT or MR imaging as well as indicating area of concern. Dictated by: Yves Cardozo M.D. on 11/28/2021 at 14:39 Approved by: Yves Cardozo M.D. on 11/28/2021 at 14:50
--- NOTE | 2021-11-28 14:03 | DI.RAD.S_ITS ---
PROCEDURE: XR FEMUR LT MIN 2V INDICATIONS: osteo vs sub q TECHNIQUE: 2 views of the femur were acquired. COMPARISON: None. FINDINGS: Bones: No fractures or dislocations. No suspicious bony lesions. Soft tissues: Subcutaneous edema is present along the inner aspect of the thigh. IMPRESSION: Edematous change. No underlying bony abnormality. Dictated by: Christine Burnette M.D. on 11/28/2021 at 14:39 Approved by: Christine Burnette M.D. on 11/28/2021 at 14:39
--- NOTE | 2021-11-28 14:03 | DI.RAD.S_ITS ---
PROCEDURE: XR TIBIA FIBULA LT 2V INDICATIONS: osteo vs sub q TECHNIQUE: 2 views of the tibia and fibula were acquired. COMPARISON: [facility], CR, XR ANKLE LT 2V, 11/28/2021, 14:00. FINDINGS: Bones: No acute fracture or dislocation. No suspicious bony lesions. Soft tissues: There is trace subcutaneous emphysema or a soft tissue defect visualized along the medial aspect of the calf. IMPRESSION: No suspicious bony lesions. Questionable soft tissue laceration versus subcutaneous emphysema only partially characterized on this limited view of the lower extremity. Dictated by: Christine Burnette M.D. on 11/28/2021 at 14:36 Approved by: Christine Burnette M.D. on 11/28/2021 at 14:37
--- NOTE | 2021-11-28 14:03 | DI.RAD.S_ITS ---
PROCEDURE: XR ANKLE LT 2V INDICATIONS: osteo vs sub q TECHNIQUE: 3 views of the ankle were acquired. COMPARISON: None. FINDINGS: Bones: No fractures or dislocations. Ankle mortise is normally aligned. No suspicious bony lesions. Degenerative changes present at the anterior tibiotalar joint. Soft tissues: No tibiotalar joint effusion. There is diffuse edema throughout the subcutaneous tissues. Subcutaneous emphysema or a soft tissue laceration is visualized within the posterior medial aspect of the calf. Subtle soft tissue calcification is also noted in this region. No unexpected radiopaque foreign bodies. IMPRESSION: Questionable soft tissue defect versus subcutaneous emphysema in the setting of diffuse edema. Findings suggest cellulitis. Gas-forming infection cannot be excluded. Dictated by: Christine Burnette M.D. on 11/28/2021 at 14:37 Approved by: Christine Burnette M.D. on 11/28/2021 at 14:39
--- NOTE | 2021-11-28 14:08 | DI.MRI.S_ITS ---
PROCEDURE: MR LOWER LEG LT WO/W CON INDICATIONS: sub q air vs abscess vs osteo TECHNIQUE: Noncontrast coronal T1 spin echo and STIR, sagittal T1 spin echo with fat saturation and STIR, axial T1 spin echo and T2 fast spin echo with fat saturation. After the administration of contrast, axial/sagittal/coronal T1 spin echo with fat saturation through the left lower leg. COMPARISON: [facility], CR, XR TIBIA FIBULA LT 2V, 11/28/2021, 14:00. [facility], MR, MR LOWER LEG LT WO/W CON, 03/24/2021, 14:03. FINDINGS: Image quality: Excellent. Bones: The visualized bone marrow demonstrates normal signal on all sequences. The overlying cortex appears intact. No abnormal intraosseous enhancement. Soft tissues: Diffuse subcutaneous soft tissue swelling and edema throughout left lower leg is seen suggestive of cellulitis. Radiograph finding of subcutaneous emphysema in medial mid to distal lower leg soft tissue is not well seen on the current study. There is no discrete drainable fluid collection. No soft tissue masses are visualized. The scanned muscles demonstrate normal overall bulk and internal signal. IMPRESSION: 1. Diffuse cellulitis throughout left lower leg particularly along medial aspect of mid to distal lower leg. No discrete drainable abscess collection is seen. No definite subcutaneous emphysema is noted. 2. No underlying muscle involvement. 3. No evidence of osteomyelitis. Dictated by: Rickie Sullivan M.D. on 11/28/2021 at 16:13 Approved by: Rickie Sullivan M.D. on 11/28/2021 at 16:17
[2021-11-28 16:17] LABS: Prothrombin Time 22.9 SECONDS (10.1-12.7)
[2021-11-28] MEDS: MEROPENEM 500 MG in SODIUM CHLORIDE 0.9% 100 ML 200 MG IV (16:32)
[2021-11-28 16:34] LABS: Magnesium 1.7 mg/dL (1.6-2.3)
[2021-11-28] MEDS: VANCOMYCIN 2,000 MG/400 ML PIGGYBACK 200 MG IV (17:15)
--- NOTE | 2021-11-28 18:22 | PM.HP.1 ---
History of Present Illness History of Present Illness Date Patient Seen: 11/28/21 Time Patient Seen: 18:22 Chief complaint: Leg infection Narrative: 41-year-old male with type 2 diabetes, hypertension, opiate dependence who has chronic lower extremity ulcers and multiple wounds.? He is currently being followed by Dr. Dumont at the wound care clinic, but has missed a few appointments as he has been in [facility] recently. He reports that he did not feel well yesterday but also missed his methadone appointment. Later in the day he began to notice that his left leg hurt and he had some worsening redness. He slept for most of the day, and then had continued leg pain and redness. He went to vegetable picker his methadone this morning, and instead of following up with the Wound Care Clinic which was scheduled today he decided to come to the emergency room due to his leg pain. He denies any fevers or chills, he denies any chest pain. In the emergency room, the patient was mildly tachycardic but the remainder of his vital signs were unremarkable. Laboratory evaluation revealed a mild thrombocytopenia with platelet count of 114, and a chronic stable anemia with a hemoglobin of 10.6. INR was elevated at 2.0. Chemistries revealed a mild hyponatremia with sodium of 129, glucose was 178, total bilirubin was 3.0, with an AST 131, and an ALT of 84. Patient denies any recent alcohol intake. Troponin testing was negative. Procalcitonin was elevated at 1.36. COVID-19 testing was negative. He was admitted to Medicine for further management of the left lower extremity cellulitis. X-ray imaging showed possible subcutaneous gas, MRI was then ordered which did not show any evidence of subcutaneous emphysema, but a diffuse cellulitis without any fluid collection or evidence of osteomyelitis. Patient History Medical History (Updated 11/28/21 @ 13:53 by BUBBA Patton) Chronic venous hypertension with ulcer Chronic, continuous use of opioids Obesity Type 2 diabetes mellitus Surgical History (Updated 11/28/21 @ 18:22 by Seun Roberts DO) No pertinent past surgical history Family & Social History Family History Mother Breast cancer Father Diabetes mellitus Social History: household members other Safety & Behavioral: Feels Safe in Current Yes Environment Been Physically Hurt or No Threatened By a Person Tobacco & Substance use: Tobacco type cigarettes Smoking Status Current every day smoker alcohol intake former alcohol intake frequency other Substance Use Type does not use Meds Home Medications and Allergies Home Medications Medication Instructions Recorded Confirmed Type empagliflozin 25 mg tablet 25 mg PO DAILY 03/20/21 11/28/21 History (Jardiance) insulin glargine 100 unit/mL (3 40 unit SUBCUT BID 03/20/21 11/28/21 History mL) subcutaneous pen (Lantus Solostar U-100 Insulin) lisinopril 20 mg tablet 20 mg PO DAILY 03/20/21 11/28/21 History metformin 1,000 mg tablet 1,000 mg PO DAILY 03/20/21 11/28/21 History methadone 10 mg tablet 115 mg PO DAILY 03/20/21 11/28/21 History topiramate 25 mg tablet 50 mg PO DAILY 03/20/21 11/28/21 History pentoxifylline 400 mg 400 mg PO TID 11/28/21 11/28/21 History tablet,extended release prednisone 10 mg tablet 10 mg PO DAILY 11/28/21 11/28/21 History Allergies Allergy/AdvReac Type Severity Reaction Status Date / Time iodine Allergy Verified 03/20/21 05:22 Review of Systems Review of Systems Narrative: All other systems reviewed with the patient and are negative unless otherwise stated. Exam Vital Signs (past 8 hours): - 11/28/21 12:09 11/28/21 13:04 11/28/21 13:09 Temperature 97.6 F Pulse Rate 104 H 104 H 102 H Respiratory Rate 18 14 13 Blood Pressure 127/66 123/73 Pulse Oximetry 94 94 94 Oxygen Delivery Method Room Air Narrative Exam Narrative: General:? Patient is well developed and well nourished, obese, mildly lethargic appearing. HEENT:? Normocephalic, atraumatic, extraocular muscles intact, oral pharynx is clear and mucous membranes are moist. Neck: supple and symmetric, trachea is midline, no cervical adenopathy. Negative for JVD Chest:? Normal AP diameter and contour without kyphoscoliosis, no tachypnea, equal chest rise bilaterally. Lungs:? CTA b/l no wheezing rhonchi or rales. Cardio:?RRR no m/r/g. Abdomen: S NT ND.. Musculoskeletal:? Muscle strength and tone are equal within normal limits, no deformity. Extremities: Bilateral nonpitting edema, chronic, no joint effusions. Skin:? Bilateral lower extremity chronic wounds, each to bandaged and dressed. There is a left distal and proximal leg cellulitis that is demarcated in the emergency room. The area is quite large, erythematous, tender. There is no obvious abscess or purulence. Neuro:? Alert and orientated x3,? sensation to touch intact in all extremities, no gross deficits noted of cranial nerves. Psych:? Patient has a well-kept appearance, appropriate affect, mental status attitude thought context and judgment are appropriate for age. Objective ECG Impression: Sinus tachycardia as interpreted by nj Labs Result Diagrams: 11/28/21 13:00 11/28/21 12:45 Labs: Laboratory Results - last 24 hr 11/28/21 11/28/21 11/28/21 12:45 12:45 12:45 WBC RBC Hgb Hct MCV MCH MCHC RDW Plt Count Neut % (Auto) Lymph % (Auto) [place] % (Auto) Eos % (Auto) Baso % (Auto) Neut # (Auto) Lymph # (Auto) [place] # (Auto) Eos # (Auto) Baso # (Auto) PT 22.9 H INR 2.0 H Sodium 129 L Potassium 3.6 Chloride 100 Carbon Dioxide 24 BUN 14 Creatinine 0.49 L Estimated GFR > 60 BUN/Creatinine Ratio 28.6 H Glucose 178 H Lactate 0.9 Calcium 8.6 Magnesium Total Bilirubin 3.0 H AST 131 H ALT 84 H Alkaline Phosphatase 94 Total Creatine Kinase 87 CK-MB (CK-2) TNP CK-MB (CK-2) Rel Index TNP Troponin I < 0.012 Total Protein 6.6 Albumin 3.2 L Globulin 3.4 Albumin/Globulin Ratio 0.9 L Procalcitonin 1.36 H SARS-CoV-2 (PCR) 11/28/21 11/28/21 11/28/21 12:45 13:00 13:00 WBC 10.5 RBC 3.94 L Hgb 10.6 L Hct 31.3 L MCV 79.5 L MCH 26.8 MCHC 33.7 RDW 17.8 H Plt Count 114 L Neut % (Auto) 91.0 H Lymph % (Auto) 3.9 L [place] % (Auto) 4.9 Eos % (Auto) 0.0 L Baso % (Auto) 0.2 Neut # (Auto) 9500 H Lymph # (Auto) 400 L [place] # (Auto) 500 Eos # (Auto) 0 Baso # (Auto) 0 PT INR Sodium Potassium Chloride Carbon Dioxide BUN Creatinine Estimated GFR BUN/Creatinine Ratio Glucose Lactate Calcium Magnesium 1.7 Total Bilirubin AST ALT Alkaline Phosphatase Total Creatine Kinase CK-MB (CK-2) CK-MB (CK-2) Rel Index Troponin I Total Protein Albumin Globulin Albumin/Globulin Ratio Procalcitonin SARS-CoV-2 (PCR) Negative Assessment & Plan Assessment & Plan narrative: 41-year-old male with type 2 diabetes, hypertension, opiate dependence who has chronic lower extremity ulcers and multiple wounds admitted with the left lower extremity cellulitis and sepsis. 1. Sepsis secondary acute cellulitis of the left leg in setting of chronic lower extremity wounds. - SOFA score of 3 based on hepatic dysfunction and thrombocytopenia. - given levaquin and vanco in the ER. While awaiting MRI I recommended pradeep,clinda,and vanc given gas on XR imaging for a necrotizing infeciton. Given MRI findings will continue ceftriaxone and vancomycin based on prior cultures. He does have a prior history of vancomycin intermediate resistant organisms and needed daptomycin in the past. Consider transitioning to daptomycin depending on clinical course. -procalcitonin 1.36. -patient was given antibiotics and appropriate fluid bolus in the ER 2. Hyperbilirubinemia and elevated transaminase levels - check a RUQ ultrasound - given recent incarceration check Hepatitis panel though suspect could be in setting of sepsis. 3.? type 2 diabetes - on home metformin and jardiance, will hold for now. - continue home lantus 40 U BID, continue to adjust with sliding scale and hold home medications. 4.? hypertension - hold home medications in setting of sepsis initially. 5.? chronic opiate dependence - continue methadone 6. Hyponatremia - suspect related to hypovolemia. Will continue to follow. Code: Full, surrogate decision maker is the patient's mother DVT: Lovenox BID Dispo: Admitted as inpatient as stay is expected to exceed 2 midnights I have utilized all available immediate resources to obtain, update, or review the patient's current medications. COVID-19 COVID-19 status: Negative Time Spent With Patient Critical Care time: I spent a total of [] minutes of critical care time on this patient's care today; this time is exclusive of procedural time. Scores SOFA PaO2/FIO2: >=400 mmHg Platelets: < 150 Bilirubin: 2.0-5.9 mg/dL Hypotension: MAP >= 70 mmHg [place] Coma Scale: 15 Renal: < 1.2 mg/dL SOFA Score: 3
[2021-11-28] MEDS: SODIUM CHLORIDE 0.9% 1,000 ML 100 ML IV (18:38)
--- NOTE | 2021-11-28 19:26 | PC.NURSE ---
Pt arrived to the unit from ED around 1720. Pt is AxOx4, independent and cooperative. VSS, pt stated pt's pain is low and tolerable. Pt has chronic pain. LLE has redness and edema till thigh due to cellulites. Pt also has wound and dressing on top of R foot. Pt has Vanco is running and offered some snack. Otherwise, no problem identified. Continue monitor.
[2021-11-28] MEDS: INSULIN GLARGINE 100 UNIT/ML 3ML PEN 40 UNIT SUBCUT (21:31)
[2021-11-28] MEDS: ENOXAPARIN 40 MG/0.4 ML SYRINGE SUBCUT (21:31)
[2021-11-28] MEDS: INSULIN LISPRO 100 UNIT/ML 3ML VIAL SUBCUT (21:32)
[2021-11-29] VITALS (8 sets, daily range): BP systolic 120–136; BP diastolic 63–83; PULSE 91–105; RESP 16–19; TEMP 35.8–36.5; O2SAT 95–98
[2021-11-29 02:42] LABS: Appearance Urine UA CLEAR; Bilirubin Urine UA NEGATIVE (NEGATIVE); Color Urine UA YELLOW; Glucose Urine UA 2+ g/dL (Negative); Ketones Urine UA 1+ (NEGATIVE); Leukocyte Esterase Urine UA TRACE (NEGATIVE); Nitrite Urine UA NEGATIVE (Negative); Occult Blood Urine UA NEGATIVE (Negative); Protein Urine UA NEGATIVE (Negative)
[2021-11-29 03:31] LABS: Bacteria Urine None Seen; Culture Indicated Urine Specimen Cultured; RBC Urine None Seen (0-5/HPF); WBC Urine 0-1/HPF (0-5/HPF)
[2021-11-29] MEDS: VANCOMYCIN 2,000 MG/400 ML PIGGYBACK 200 MG IV (04:27)
[2021-11-29 05:37] LABS: Alanine Aminotransferase 78 IU/L (<50); Albumin 2.9 g/dL (3.5-5.0); Albumin Globulin Ratio 0.9 (1.0-2.8); Alkaline Phosphatase 97 U/L (38-126); Aspartate Aminotransferase 81 IU/L (17-59); Bilirubin Total 3.6 mg/dL (0.2-1.3); Blood Urea Nitrogen 12 mg/dL (9-20); Calcium 8.4 mg/dL (8.4-10.2); Carbon Dioxide 23 mmol/L (22-32); Chloride 102 mmol/L (98-107); Estimated Glomerular Filt Rate > 60 mL/min (>60); Globulin 3.3 g/dL (1.7-4.1); Glucose 143 mg/dL (70-100); HEMOLYSIS < 15 (0-50); Potassium 3.3 mmol/L (3.4-5.1); Sodium 131 mmol/L (137-145); Total Protein 6.2 g/dL (6.3-8.2)
[2021-11-29 05:41] LABS: Hematocrit 30.2 % (41-53); Mean Corpuscular Hemoglobin 26.6 PG (26-34); Mean Corpuscular Volume 80.7 fL (80-100); Platelet Count 105 X10^3/uL (150-400); Red Blood Cell Count 3.74 X10^6/uL (4.5-5.9); Red Cell Distribution Width 18.4 % (11.6-14.8); White Blood Cell Count 4.9 X10^3/uL (4.5-11.0)
[2021-11-29 05:42] LABS: Add Manual Diff / Slide Review YES
[2021-11-29 06:00] LABS: Hemoglobin A1C% w Est Avg Glu 8.3 % (4.0-6.0)
[2021-11-29 06:18] LABS: C-Reactive Protein Quant 18.2 mg/dL (<1.0)
[2021-11-29 06:22] LABS: Erythrocyte Sedimentation Rate 61 MM/HR (0-15)
[2021-11-29 07:33] LABS: Anisocytosis 1+; Neutrophils Absolute Manual 3822 /uL (3000-5900); Total Cells Counted 100
[2021-11-29] MEDS: cefTRIAXone 1,000 MG in SODIUM CHLORIDE 0.9% 100 ML 200 MG IV (08:35)
[2021-11-29] MEDS: ENOXAPARIN 40 MG/0.4 ML SYRINGE SUBCUT (08:35)
[2021-11-29] MEDS: METHADONE 10 MG TABLET 110 MG PO (08:36)
[2021-11-29] MEDS: METHADONE 5 MG TABLET PO (08:36)
[2021-11-29] MEDS: TOPIRAMATE 25 MG TABLET 50 MG PO (08:37)
[2021-11-29] MEDS: INSULIN LISPRO 100 UNIT/ML 3ML VIAL SUBCUT ×3 (08:41→17:08)
[2021-11-29] MEDS: INSULIN GLARGINE 100 UNIT/ML 3ML PEN 40 UNIT SUBCUT ×2 (08:42→22:10)
[2021-11-29] MEDS: POTASSIUM CHLORIDE 20 MEQ/15 ML UDC 40 MEQ PO ×2 (09:29→15:14)
[2021-11-29] MEDS: TETRACAINE/BENZOCAINE/BUTAMBEN (CETACAINE) BOTTLE 1 SPRAY TOP ×3 (09:31→17:11)
--- NOTE | 2021-11-29 11:35 | PC.NURSE ---
Patient resting in bed, just finished eating lunch. Dressings to bilateral lower extremities are carefully removed using saline to moisten dressings with removal. Patient has been seen at wound clinic for these chronic wounds, which, according to patient have been waxing and waning in severity for months. Patient says taking prednisone has made the biggest difference, which was prescribed by wound clinic after pyoderma gangrenosum was suspected. RLE 1st digit has a 1.4 x 0.7 x 0.1cm wound which is 50% granular and 50% slough tissue. Right foot just inferior to 2nd digit has a 0.8 x 0.7 x 0.2cm wound, 20% granular and 80% slough. Right lateral midfoot has a 3.8 x 3.5 x 0.5 wound when measured as an affected area with two small satellite wounds on the medial aspect. This area is 10% granular and 90% yellow slough. These wounds are gently cleansed and dressed to orders. LLE medial lower leg has a 1.5 x 1.5 x 0.4cm wound, 50 granulation, 50% slough. Left medial ankle has an 8.3 x 4.7 x0.4cm wound with a 1 x 1 x 0.3cm satellite wound patient says is a biopsy site. These wounds have 100% yellow adherent slough. Left foot 2nd digit has a 1 x 0.8 x 0.1cm wound, 90% granular, 10% slough. These wounds all have varying degrees of exudate according to patient, but when dressings were removed all wounds had a moderate amount of serosanguineous drainage to removed dressings. These wounds are all cleansed and dressed to orders. There is no malodor noted. Bialteral dorsalis pedis and posterior tibial pulses are all palpable except right medial posterior tibial due to presence of wound (unable to palpate). Capillary refill < 3 seconds to bilateral [place]. Patient's feet are warm, left foot and leg especially warm to touch, reddened area extends up left thigh. Hemosiderin staining noted to BLE's from venous insufficiency- patient has own compression knee-highs and dons them without difficulty. Patient tolerates all cares well, denies pain at this time.
[2021-11-29] MEDS: SODIUM CHLORIDE 0.9% 1,000 ML 100 ML IV ×2 (13:13)
--- NOTE | 2021-11-29 13:52 | DIET.CONS ---
Dietary Consultation Note Admission Date: 11/28/2021 16:50 Assessment: 41y M admitted for cellulitis secondary to chronic wounds on LE. Pt follows with wound care, has DM2 on metformin and Jardiance c current A1c 8.3 referred to nutrition for DM related chronic wounds. Pt reports significant stressors recently. Pt states he tries to eat healthy but has a big barrier of receiving $200/mo EBT benefits which averages to $50/week. Pt states with prices going up at grocery store he is not meeting nutrition needs. Pt has application out for extended benefits through [employer] but not quite sure how to secure these funds. Pt states he loves fruits and veggies. Pt with poor dentition but states doesn't need altered textures, prefers less cooked vegetables. Pt dislikes Lamberto, declines ONS. Ht: 185.42 cm Wt: 145.15 kg BMI: 42.2 Last BM: 11/28/21 (11/28/21 21:30) MNA: 14 Jerry Score: 20 Diet: 11/28/21 Dinner Carbohydrate Consistent Diet Diet Modifications: Carbohydrate level: Large (4 CHO) Nutrition Percent Meal Consumed 50% 11/29/21 10:51 Percent Meal Consumed 100% 11/29/21 09:00 Labs: RBC 3.74 X10^6/uL (4.5-5.9) L 11/29/21 05:08 Hgb 10.0 g/dL (13.5-17.5) L 11/29/21 05:08 Hct 30.2 % (41-53) L 11/29/21 05:08 Creatinine 0.48 mg/dL (0.66-1.25) L 11/29/21 05:08 Hemoglobin A1c 8.3 % (4.0-6.0) H 11/29/21 05:08 Lactate 0.9 mmol/L (0.7-2.1) 11/28/21 12:45 Nutrition Diagnosis: chronic wounds c cellulitis r/t undesirable food choices and social barriers to health aeb pt reports food insecurity, is on fixed income with $200/mo for groceries, pt enjoys healthy foods and f/v but difficulty affording, pt admitted c LE cellulitis and seen by wound care on regular basis c DM2 (A1c 8.3). Interventions: 1. To address chronic wounds, educated on nutrients for wound healing including protein, Vit A and Vit c. Discussed food sources of each including inexpensive options. 2. To address food insecurity, encouraged pt to f/u on extended food benefits and informed pt of opportunity to double EBT benefits when shopping at [employer]. 3. Discussed with kitchen pt to have protein, green veg and fruit cup with L/D if pt not ordering himself. Encouraged pt to order low sugar yogurt. Electronically Signed by: Tari Corley 11/29/21 13:52 Clinical Dietitian [address] [id number]
--- NOTE | 2021-11-29 14:23 | P.PN_ITS ---
Subjective Subjective Date Patient Seen: 11/29/21 Interval history: No real change in swelling, redness, or tenderness today. Denies chest pain, shortness of breath. Did complain of dental pain and was supposed to see a dentist today. It is improved with cetacaine spray. Exam Vital Signs (past 8 hours): - 11/29/21 08:10 11/29/21 09:00 11/29/21 11:51 Temperature 97.2 F L 96.5 F L Pulse Rate 97 H 105 H Respiratory Rate 16 17 Blood Pressure 125/83 123/76 Pulse Oximetry 97 95 97 Oxygen Delivery Method Room Air Oxygen Flow Rate 0 Narrative Exam Narrative: General:? Patient is well developed and well nourished, obese, mildly lethargic appearing. HEENT:? Normocephalic, atraumatic, extraocular muscles intact, oral pharynx is clear and mucous membranes are moist. Neck: supple and symmetric, trachea is midline, no cervical adenopathy. Negative for JVD Chest:? Normal AP diameter and contour without kyphoscoliosis, no tachypnea, equal chest rise bilaterally. Lungs:? CTA b/l no wheezing rhonchi or rales. Cardio:?RRR no m/r/g. Abdomen: S NT ND.. Musculoskeletal:? Muscle strength and tone are equal within normal limits, no deformity. Extremities:? Bilateral nonpitting edema, chronic, no joint effusions. Skin:? Bilateral lower extremity chronic wounds, each to bandaged and dressed.? There is a left distal and proximal leg cellulitis that is demarcated in the emergency room.? The area is quite large, erythematous, tender.? There is no obvious abscess or purulence. Neuro:? Alert and orientated x3,? sensation to touch intact in all extremities, no gross deficits noted of cranial nerves. Psych:? Patient has a well-kept appearance, appropriate affect, mental status attitude thought context and judgment are appropriate for age. Objective Labs Result Diagrams: 11/29/21 05:08 11/29/21 05:08 Labs: Laboratory Results - last 24 hr 11/28/21 11/28/21 11/29/21 12:45 12:45 02:00 WBC RBC Hgb Hct MCV MCH MCHC RDW Plt Count Neut % (Auto) Lymph % (Auto) [place] % (Auto) Eos % (Auto) Baso % (Auto) Lymph # (Auto) [place] # (Auto) Baso # (Auto) Total Counted Seg Neutrophils % Band Neutrophils % Lymphocytes % (Manual) Atypical Lymphs % Monocytes % (Manual) Eosinophils % (Manual) Basophils % (Manual) Neutrophils # (Manual) RBC Morphology Anisocytosis ESR PT 22.9 H INR 2.0 H Sodium Potassium Chloride Carbon Dioxide BUN Creatinine Estimated GFR BUN/Creatinine Ratio Glucose Hemoglobin A1c Calcium Magnesium 1.7 Total Bilirubin AST ALT Alkaline Phosphatase C-Reactive Protein Total Protein Albumin Globulin Albumin/Globulin Ratio Urine Color Yellow Urine Appearance Clear Urine pH 6.0 Ur Specific [place] 1.010 Urine Protein Negative Urine Glucose (UA) 2+ H Urine Ketones 1+ H Urine Occult Blood Negative Urine Nitrate Negative Urine Bilirubin Negative Urine Urobilinogen 2.0 H Ur Leukocyte Esterase Trace H Urine RBC None seen Urine WBC 0-1/hpf Urine Bacteria None seen Ur Culture Indicated? Specimen cultured 11/29/21 11/29/21 11/29/21 05:08 05:08 05:08 WBC 4.9 D RBC 3.74 L Hgb 10.0 L Hct 30.2 L MCV 80.7 MCH 26.6 MCHC 33.0 RDW 18.4 H Plt Count 105 L Neut % (Auto) Not Reportable Lymph % (Auto) Not Reportable [place] % (Auto) Not Reportable Eos % (Auto) Not Reportable Baso % (Auto) Not Reportable Lymph # (Auto) Not Reportable [place] # (Auto) Not Reportable Baso # (Auto) Not Reportable Total Counted 100 Seg Neutrophils % 66.0 Band Neutrophils % 12.0 H Lymphocytes % (Manual) 11.0 L Atypical Lymphs % 2.0 H Monocytes % (Manual) 6.0 Eosinophils % (Manual) 2.0 Basophils % (Manual) 1.0 Neutrophils # (Manual) 3822 RBC Morphology Not Reportable Anisocytosis 1+ H ESR PT INR Sodium 131 L Potassium 3.3 L Chloride 102 Carbon Dioxide 23 BUN 12 Creatinine 0.48 L Estimated GFR > 60 BUN/Creatinine Ratio 25.0 H Glucose 143 H Hemoglobin A1c 8.3 H Calcium 8.4 Magnesium Total Bilirubin 3.6 H AST 81 H ALT 78 H Alkaline Phosphatase 97 C-Reactive Protein Total Protein 6.2 L Albumin 2.9 L Globulin 3.3 Albumin/Globulin Ratio 0.9 L Urine Color Urine Appearance Urine pH Ur Specific [place] Urine Protein Urine Glucose (UA) Urine Ketones Urine Occult Blood Urine Nitrate Urine Bilirubin Urine Urobilinogen Ur Leukocyte Esterase Urine RBC Urine WBC Urine Bacteria Ur Culture Indicated? 11/29/21 11/29/21 05:08 05:08 WBC RBC Hgb Hct MCV MCH MCHC RDW Plt Count Neut % (Auto) Lymph % (Auto) [place] % (Auto) Eos % (Auto) Baso % (Auto) Lymph # (Auto) [place] # (Auto) Baso # (Auto) Total Counted Seg Neutrophils % Band Neutrophils % Lymphocytes % (Manual) Atypical Lymphs % Monocytes % (Manual) Eosinophils % (Manual) Basophils % (Manual) Neutrophils # (Manual) RBC Morphology Anisocytosis ESR 61 H PT INR Sodium Potassium Chloride Carbon Dioxide BUN Creatinine Estimated GFR BUN/Creatinine Ratio Glucose Hemoglobin A1c Calcium Magnesium Total Bilirubin AST ALT Alkaline Phosphatase C-Reactive Protein 18.2 H Total Protein Albumin Globulin Albumin/Globulin Ratio Urine Color Urine Appearance Urine pH Ur Specific [place] Urine Protein Urine Glucose (UA) Urine Ketones Urine Occult Blood Urine Nitrate Urine Bilirubin Urine Urobilinogen Ur Leukocyte Esterase Urine RBC Urine WBC Urine Bacteria Ur Culture Indicated? [facility] Medical History Chronic venous hypertension with ulcer Chronic, continuous use of opioids Obesity Type 2 diabetes mellitus Surgical History No pertinent past surgical history Family History Mother Breast cancer Father Diabetes mellitus Social History household members: other Smoking Status: Current every day smoker alcohol intake: former Assessment & Plan Assessment & Plan narrative: 41-year-old male with type 2 diabetes, hypertension, opiate dependence who has chronic lower extremity ulcers and multiple wounds admitted with the left lower extremity cellulitis and sepsis. 1. Sepsis secondary acute cellulitis of the left leg in setting of chronic lower extremity wounds. ?- SOFA score of 3 based on hepatic dysfunction and thrombocytopenia. ?- given levaquin and vanco in the ER. While awaiting MRI I recommended pradeep,clinda,and vanc given gas on XR imaging for a necrotizing infeciton. Given MRI findings continued ceftriaxone and vancomycin based on prior cultures. He does have a prior history of vancomycin intermediate resistant organisms and needed daptomycin in the past. Given lack of improvement today will change from vancomycin to 6mg/kg daptomycin. ?-procalcitonin 1.36. ?-patient was given antibiotics and appropriate fluid bolus in the ER - ESR 61, CRP 18.2. MRI negative for osteomyelitis. 2. Hyperbilirubinemia and elevated transaminase levels ?- RUQ ultrasound with steatosis and gallstones. Consider MRCP depending on symptoms / trend of bilirubin. May have passed a stone as LFTs improving but bilirubin up, may lag behind the other lab values. ?- given recent incarceration sent Hepatitis panel though suspect could be in setting of sepsis. Panel currently pending. 3.? type 2 diabetes ?- on home metformin and jardiance, will hold for now. ?- continue home lantus 40 U BID, continue to adjust with sliding scale and hold home medications. - A1c 8.3% 4.? hypertension ?- hold home medications in setting of sepsis initially. Remains normotensive today so will not restart at this time. 5.? chronic opiate dependence ?- continue methadone 6. Hyponatremia ?- suspect related to hypovolemia. Will continue to follow. Improved slightly today. 7. Hypokalemia - provided with oral repletion. Code: Full, surrogate decision maker is the patient's mother DVT: Lovenox BID Dispo:? Admitted as inpatient. Possible home in 2-3 days depending on improvement in cellulitis. I have utilized all available immediate resources to obtain, update, or review the patient's current medications. Time Spent With Patient Critical Care time: I spent a total of [] minutes of critical care time on this patient's care today; this time is exclusive of procedural time. Quality VTE Deep Vein Thrombosis/Pulmonary Embolism Present on Admission: No
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
[2021-11-29] MEDS: SODIUM CHLORIDE 0.9% IV (15:59)
[2021-11-29] MEDS: DAPTOMYCIN IV (15:59)
[2021-11-29 16:03] LABS: Hepatitis B Surface Antigen NEGATIVE s/c (NEGATIVE)
[2021-11-29 16:04] LABS: Hep C Virus Ab w/Reflex Quant REACTIVE s/c (NEGATIVE)
--- NOTE | 2021-11-29 19:25 | PC.NURSE ---
Pt is AxOx4, independent and cooperative. VSS, no c/o pain. BG-202, 195 and pt recieved coverage for it. Pt ate well and doing well all day. Wound RN came and checked his wound. Otherwise, no problem identified. Continue monitor.
[2021-11-29] MEDS: ACETAMINOPHEN 325 MG TABLET 975 MG PO (20:03)
[2021-11-30] VITALS (11 sets, daily range): BP systolic 114–152; BP diastolic 70–93; PULSE 86–104; RESP 18–84; TEMP 35.5–36.6; O2SAT 95–98
[2021-11-30 03:37] LABS: Hepatitis B Surf Ab Qualitativ Non Reactive (.)
[2021-11-30 04:36] LABS: Add Manual Diff / Slide Review NO; Basophils Absolute Auto 0 /uL (0-100); Basophils Percent Auto 0.3 % (0-2); Eosinophils Absolute Auto 0 /uL (0-450); Eosinophils Percent Auto 0.8 % (2-4); Hematocrit 28.2 % (41-53); Hemoglobin 9.4 g/dL (13.5-17.5); Lymphocytes Absolute Auto 600 /uL (1100-4500); Lymphocytes Percent Auto 18.8 % (25-40); Mean Corpuscular HGB Conc 33.4 % (30-36); Mean Corpuscular Hemoglobin 26.8 PG (26-34); Mean Corpuscular Volume 80.2 fL (80-100); Monocytes Absolute Auto 200 /uL (0-900); Monocytes Percent Auto 7.9 % (3-14); Neutrophils Absolute Auto 2200 /uL (1500-7000); Neutrophils Percent Auto 72.2 % (50-75); Platelet Count 103 X10^3/uL (150-400); Red Blood Cell Count 3.52 X10^6/uL (4.5-5.9); Red Cell Distribution Width 18.6 % (11.6-14.8); White Blood Cell Count 3.1 X10^3/uL (4.5-11.0)
[2021-11-30 04:44] LABS: Alanine Aminotransferase 66 IU/L (<50); Albumin 2.9 g/dL (3.5-5.0); Albumin Globulin Ratio 0.9 (1.0-2.8); Alkaline Phosphatase 115 U/L (38-126); Aspartate Aminotransferase 60 IU/L (17-59); BUN Creatinine Ratio 28.6 (6-22); Bilirubin Total 1.6 mg/dL (0.2-1.3); Blood Urea Nitrogen 16 mg/dL (9-20); Carbon Dioxide 23 mmol/L (22-32); Chloride 103 mmol/L (98-107); Estimated Glomerular Filt Rate > 60 mL/min (>60); Globulin 3.4 g/dL (1.7-4.1); Glucose 173 mg/dL (70-100); HEMOLYSIS < 15 (0-50); Potassium 3.5 mmol/L (3.4-5.1); Sodium 132 mmol/L (137-145); Total Protein 6.3 g/dL (6.3-8.2)
[2021-11-30 04:55] LABS: Vancomycin Trough < 5.0 ug/mL (10-20)
[2021-11-30 07:01] LABS: Hepatitis B Core Antibody Negative (Negative)
[2021-11-30] MEDS: ENOXAPARIN 40 MG/0.4 ML SYRINGE SUBCUT ×2 (08:59→21:17)
[2021-11-30] MEDS: cefTRIAXone 1,000 MG in SODIUM CHLORIDE 0.9% 100 ML 200 MG IV (08:59)
[2021-11-30] MEDS: DOXYCYCLINE HYCLATE 100 MG TABLET PO ×2 (08:59→21:16)
[2021-11-30] MEDS: TOPIRAMATE 25 MG TABLET 50 MG PO (09:01)
[2021-11-30] MEDS: METHADONE 10 MG TABLET 110 MG PO (09:01)
[2021-11-30] MEDS: predniSONE 5 MG TABLET 10 MG PO (09:01)
[2021-11-30] MEDS: METHADONE 5 MG TABLET PO (09:02)
[2021-11-30] MEDS: INSULIN LISPRO 100 UNIT/ML 3ML VIAL SUBCUT ×4 (09:06→21:14)
[2021-11-30] MEDS: INSULIN GLARGINE 100 UNIT/ML 3ML PEN 40 UNIT SUBCUT ×2 (09:08→21:14)
--- NOTE | 2021-11-30 11:22 | PM.PN.1 ---
Subjective Subjective Date Patient Seen: 11/30/21 Interval history: He reports redness, swelling, and pain finally starting to improve this morning. Had quite a bit of leg pain last night. He realizes it helps to keep the leg elevated. Denies chest pain, shortness of breath. Exam Vital Signs (past 8 hours): - 11/30/21 04:00 11/30/21 05:36 Temperature 97.0 F L Pulse Rate 87 Respiratory Rate 19 Blood Pressure 114/70 Pulse Oximetry 95 95 Oxygen Delivery Method Room Air Oxygen Flow Rate 0 Narrative Exam Narrative: General:? Patient is well developed and well nourished, obese, mildly lethargic appearing. HEENT:? Normocephalic, atraumatic, extraocular muscles intact, oral pharynx is clear and mucous membranes are moist. Neck: supple and symmetric, trachea is midline, no cervical adenopathy. Negative for JVD Chest:? Normal AP diameter and contour without kyphoscoliosis, no tachypnea, equal chest rise bilaterally. Lungs:? CTA b/l no wheezing rhonchi or rales. Cardio:?RRR no m/r/g. Abdomen: S NT ND.. Musculoskeletal:? Muscle strength and tone are equal within normal limits, no deformity. Extremities:? Bilateral nonpitting edema, chronic, no joint effusions. Skin:? Bilateral lower extremity chronic wounds, each to bandaged and dressed.? There is a left distal and proximal leg cellulitis that is demarcated in the emergency room, there is slight improvement in the erythema today and tenderness, but area of redness is stable. Neuro:? Alert and orientated x3,? sensation to touch intact in all extremities, no gross deficits noted of cranial nerves. Psych:? Patient has a well-kept appearance, appropriate affect, mental status attitude thought context and judgment are appropriate for age. Objective Labs Result Diagrams: 11/30/21 04:20 11/30/21 04:20 Labs: Laboratory Results - last 24 hr 11/29/21 11/29/21 11/29/21 05:08 05:08 05:08 WBC RBC Hgb Hct MCV MCH MCHC RDW Plt Count Neut % (Auto) Lymph % (Auto) [place] % (Auto) Eos % (Auto) Baso % (Auto) Neut # (Auto) Lymph # (Auto) [place] # (Auto) Eos # (Auto) Baso # (Auto) Sodium Potassium Chloride Carbon Dioxide BUN Creatinine Estimated GFR BUN/Creatinine Ratio Glucose Calcium Total Bilirubin AST ALT Alkaline Phosphatase Total Protein Albumin Globulin Albumin/Globulin Ratio Vancomycin Trough Hep Bs Antigen Negative Hep Bs Antibody Non reactive Hep B Core Total Ab Negative Hepatitis C Antibody Reactive H 11/30/21 11/30/21 11/30/21 04:20 04:20 04:20 WBC 3.1 L RBC 3.52 L Hgb 9.4 L Hct 28.2 L MCV 80.2 MCH 26.8 MCHC 33.4 RDW 18.6 H Plt Count 103 L Neut % (Auto) 72.2 Lymph % (Auto) 18.8 L [place] % (Auto) 7.9 Eos % (Auto) 0.8 L Baso % (Auto) 0.3 Neut # (Auto) 2200 Lymph # (Auto) 600 L [place] # (Auto) 200 Eos # (Auto) 0 Baso # (Auto) 0 Sodium 132 L Potassium 3.5 Chloride 103 Carbon Dioxide 23 BUN 16 Creatinine 0.56 L Estimated GFR > 60 BUN/Creatinine Ratio 28.6 H Glucose 173 H Calcium 8.0 L Total Bilirubin 1.6 H AST 60 H ALT 66 H Alkaline Phosphatase 115 Total Protein 6.3 Albumin 2.9 L Globulin 3.4 Albumin/Globulin Ratio 0.9 L Vancomycin Trough < 5.0 L Hep Bs Antigen Hep Bs Antibody Hep B Core Total Ab Hepatitis C Antibody [facility] Medical History Chronic venous hypertension with ulcer Chronic, continuous use of opioids Obesity Type 2 diabetes mellitus Surgical History No pertinent past surgical history Family History Mother Breast cancer Father Diabetes mellitus Social History household members: other Smoking Status: Current every day smoker alcohol intake: former Assessment & Plan Assessment & Plan narrative: 41-year-old male with type 2 diabetes, hypertension, opiate dependence who has chronic lower extremity ulcers and multiple wounds admitted with the left lower extremity cellulitis and sepsis. 1. Sepsis secondary acute cellulitis of the left leg in setting of chronic lower extremity wounds. ?- SOFA score of 3 based on hepatic dysfunction and thrombocytopenia. ?- given levaquin and vanco in the ER. While awaiting MRI I recommended pradeep,clinda,and vanc given gas on XR imaging for a necrotizing infeciton. Given MRI findings continued ceftriaxone and vancomycin based on prior cultures. He does have a prior history of vancomycin intermediate resistant organisms and needed daptomycin in the past. Given lack of improvement initially changed from vancomycin to 6mg/kg daptomycin. -11/30 cultures resulted from wound, will narrow to ceftriaxone and doxycycline to cover MSSA and E. coli sensitivities. ?-procalcitonin 1.36. ?-patient was given antibiotics and appropriate fluid bolus in the ER - ESR 61, CRP 18.2. MRI negative for osteomyelitis. 2. Hyperbilirubinemia and elevated transaminase levels, hepatitis C of currently unknown status ?- RUQ ultrasound with steatosis and gallstones. Consider MRCP depending on symptoms / trend of bilirubin. May have passed a stone as LFTs improving but bilirubin up, may lag behind the other lab values. ?- given recent incarceration sent Hepatitis panel though suspect could be in setting of sepsis. Panel currently pending. - Hep B serologies negative, would recommend vaccine series as an outpatient. - Hep C antibodies positive, pending reflex quantification and genotype testing. 3.? type 2 diabetes ?- on home metformin and jardiance, will hold for now. ?- continue home lantus 40 U BID, continue to adjust with sliding scale and hold home medications. - A1c 8.3% 4.? hypertension ?- hold home medications in setting of sepsis initially. Remains normotensive today so will not restart at this time. 5.? chronic opiate dependence ?- continue methadone 6. Hyponatremia ?- suspect related to hypovolemia. Will continue to follow. Improved slightly today. 7. Hypokalemia ?- provided with oral repletion. Code: Full, surrogate decision maker is the patient's mother DVT: Lovenox BID Dispo:? Admitted as inpatient. Possible home in 2-3 days depending on improvement in cellulitis. I have utilized all available immediate resources to obtain, update, or review the patient's current medications. Time Spent With Patient Critical Care time: I spent a total of [] minutes of critical care time on this patient's care today; this time is exclusive of procedural time. Quality VTE Deep Vein Thrombosis/Pulmonary Embolism Present on Admission: No
[2021-11-30] MEDS: predniSONE 20 MG TABLET 40 MG PO (13:43)
--- NOTE | 2021-11-30 17:42 | PC.NURSE ---
Pt is AxOx4, independent and cooperative. VSS, pt has chronic pain and it is tolerable. BG-147/248/202 and pt received coverage for it. Pt had excellent appetite. Dressing changed. No other change. Continue monitor.
[2021-12-01] VITALS: O2SAT 97
[2021-12-01 00:30] VITALS: BP 116/74; PULSE 94; RESP 18; TEMP 36.5; O2SAT 97
[2021-12-01 04:00] VITALS: BP 124/85; RESP 84; TEMP 36.1; O2SAT 98
[2021-12-01 05:33] LABS: Add Manual Diff / Slide Review NO; Basophils Absolute Auto 0 /uL (0-100); Basophils Percent Auto 0.3 % (0-2); Eosinophils Absolute Auto 0 /uL (0-450); Eosinophils Percent Auto 0.2 % (2-4); Hemoglobin 9.7 g/dL (13.5-17.5); Lymphocytes Absolute Auto 600 /uL (1100-4500); Lymphocytes Percent Auto 16.9 % (25-40); Mean Corpuscular HGB Conc 33.5 % (30-36); Mean Corpuscular Hemoglobin 26.7 PG (26-34); Mean Corpuscular Volume 79.7 fL (80-100); Monocytes Absolute Auto 300 /uL (0-900); Monocytes Percent Auto 7.3 % (3-14); Neutrophils Absolute Auto 2700 /uL (1500-7000); Neutrophils Percent Auto 75.3 % (50-75); Platelet Count 125 X10^3/uL (150-400); Red Blood Cell Count 3.64 X10^6/uL (4.5-5.9); White Blood Cell Count 3.7 X10^3/uL (4.5-11.0)
[2021-12-01 05:37] LABS: Alanine Aminotransferase 86 IU/L (<50); Albumin 3.1 g/dL (3.5-5.0); Albumin Globulin Ratio 0.9 (1.0-2.8); Alkaline Phosphatase 167 U/L (38-126); Aspartate Aminotransferase 111 IU/L (17-59); BUN Creatinine Ratio 34.1 (6-22); Bilirubin Total 1.7 mg/dL (0.2-1.3); Blood Urea Nitrogen 15 mg/dL (9-20); Calcium 8.4 mg/dL (8.4-10.2); Carbon Dioxide 24 mmol/L (22-32); Chloride 103 mmol/L (98-107); Estimated Glomerular Filt Rate > 60 mL/min (>60); Globulin 3.6 g/dL (1.7-4.1); Glucose 140 mg/dL (70-100); HEMOLYSIS < 15 (0-50); Potassium 3.6 mmol/L (3.4-5.1); Sodium 132 mmol/L (137-145); Total Protein 6.7 g/dL (6.3-8.2)
[2021-12-01 07:55] VITALS: PULSE 89; RESP 18; O2SAT 99
[2021-12-01 08:00] VITALS: BP 123/80; PULSE 84; RESP 18; TEMP 36.3; O2SAT 98
[2021-12-01] MEDS: cefTRIAXone 1,000 MG in SODIUM CHLORIDE 0.9% 100 ML 200 MG IV (08:56)
[2021-12-01] MEDS: METHADONE 5 MG TABLET PO (08:57)
[2021-12-01] MEDS: METHADONE 10 MG TABLET 110 MG PO (08:57)
[2021-12-01] MEDS: predniSONE 20 MG TABLET 50 MG PO (08:57)
[2021-12-01] MEDS: DOXYCYCLINE HYCLATE 100 MG TABLET PO (08:57)
[2021-12-01] MEDS: ENOXAPARIN 40 MG/0.4 ML SYRINGE SUBCUT (08:58)
[2021-12-01] MEDS: TOPIRAMATE 25 MG TABLET 50 MG PO (08:58)
[2021-12-01] MEDS: INSULIN GLARGINE 100 UNIT/ML 3ML PEN 40 UNIT SUBCUT (08:59)
--- NOTE | 2021-12-01 11:03 | CM.DPC ---
DCP Discharge Per MD, pt is medically stable to d/c the hospital today and has gotten his once daily dose of Methadone. Per RN, pt has spoken to [facility] and has concerns that he will not get to [facility] in time before they close this morning for dispensing for his Methadone for tomorrow as they are not open on Sundays. ORA called [facility] and spoke to dispensing RN Edin who confirms they are now closed and they will not be able to provide pt with their dose for tomorrow and recommend pt discharges today and then returns to the ED for his Methadone dose tomorrow to better manage rather than send pt with a one time dose today for tomorrow dosing. ORA updated [facility] and RN who will discuss with MD because no medical reason to keep pt admitted just for his methadone dose tomorrow. Plan: ORA to follow towards determining likely pt d/c home today with return to ED tomorrow for his methadone dose until [facility] re[facility] for dispensing on Friday. MIGUEL ÁNGEL Trivedi
--- NOTE | 2021-12-01 11:42 | PC.NURSE ---
Pt to d/c today and will return to ED tomorrow for a daily dose of 115mg Methadone as his methadone clinic will be closed tomorrow. Pt informed of this and is willing to return to ED on friday for dosing. Dr Donnelly confirmed this plan with ED MD, all made aware. Pt belongings retrieved from hospital safe, PIV removed, and pt escorted via wheelchair to private vehicle, no further pt contact
--- NOTE | 2021-12-01 21:26 | P.DS_ITS ---
History of Present Illness History of Present Illness Chief complaint: Leg infection Narrative: Per admitting provider: 41-year-old male with type 2 diabetes, hypertension, opiate dependence who has chronic lower extremity ulcers and multiple wounds.? He is currently being followed by Dr. Dumont at the wound care clinic, but has missed a few appointments as he has been in [facility] recently.? He reports that he did not feel well yesterday but also missed his methadone appointment.? Later in the day he began to notice that his left leg hurt and he had some worsening redness.? He slept for most of the day, and then had continued leg pain and redness.? 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 He denies any fevers or chills, he denies any chest pain. In the emergency room, the patient was mildly tachycardic but the remainder of his vital signs were unremarkable.? Laboratory evaluation revealed a mild thrombocytopenia with platelet count of 114, and a chronic stable anemia with a hemoglobin of 10.6.? INR was elevated at 2.0.? Chemistries revealed a mild h yponatremia with sodium of 129, glucose was 178, total bilirubin was 3.0, with an AST 131, and an ALT of 84.? Patient denies any recent alcohol intake.? Troponin testing was negative.? Procalcitonin was elevated at 1.36.? COVID-19 testing was negative.? He was admitted to Medicine for further management of the left lower extremity cellulitis.? X-ray imaging showed possible subcutaneous gas, MRI was then ordered which did not show any evidence of subcutaneous emphysema, but a diffuse cellulitis without any fluid collection or evidence of osteomyelitis. Discharge Providers Provider Date of admission: 11/28/21 16:50 Discharge Date: 12/01/21 Primary care physician: Bo Alexander Consults: 11/28/21 12:35 Consult to Dietitian, Adult Stat Comment: Reason For Exam: admit, dm, foot wound Discharge provider: Jacobo Donnelly MD Summary Hospital Course Discharge Diagnosis: 1. Sepsis secondary to acute cellulitis of left leg 2. Hepatitis C positive 3. Type 2 Diabetes 4. Hypertension 5. Opiate dependence 6. Mild hyponatremia Hospital Course: Mr. Huertas was admitted with sepsis from a cellulitis of his left leg. He has known chronic wounds and sees wound care at [facility]. He was initially started on broad spectrum antibiotics with vanco and ceftriaxone. Initial xray was equivocal for gas vs wound, and patient does have chronic wounds. Follow up MRI was done which showed no evidence of gas. He grew MSSA and also E. coli resistant to fluoroquinolone. Both bacteria were sensitive to augmentin. Due to his significant illness, he was discharged with another 10 days of oral antibiotics and encouraged to follow up with wound care this week to ensure he continues to heal. In addition he was found to have elevated LFTs. with Hepatiis C antibody positive with viral levels pending at time of discharge. Hepatitis B was negative. He was encouraged to setup PCP follow up with make sure he is followed and treated for Hepatitis C and vaccinated for Hepatitis B. His A1c was 8.3, and he would benefit from follow up with a PCP to treat this. Throughout his stay he did receive his known dose of 115mg methadone daily with no evidence of adverse effect. Unfortunately on day of discharge his clinic was already closed and he was unable at time of discharge to ensure he could get methadone dose tomorrow, Friday. He was encouraged to attempt to arrange this, but as it could not be confirmed that he was given his dose to take home, if he is unable to find a way to get this dose tomorrow, I did discuss with ED physician that only option may be him needing to come in to get monitored dose. Exam Vital Signs (past 8 hours): Oxygen Delivery Method Room Air Oxygen Flow Rate 0 Narrative Exam Narrative: General:? no acute distress PULM: clear bilaterally Extremities:? Bilateral nonpitting edema Skin:? Bilateral lower extremity chronic wounds, each to bandaged and dressed.? There is a left distal and proximal leg cellulitis that is demarcated with improving erythema that is receded Objective Labs Result Diagrams: 12/01/21 05:06 12/01/21 05:06 Labs: Laboratory Results - last 24 hr 11/29/21 12/01/21 12/01/21 16:04 05:06 05:06 WBC 3.7 L RBC 3.64 L Hgb 9.7 L Hct 29.0 L MCV 79.7 L MCH 26.7 MCHC 33.5 RDW 18.0 H Plt Count 125 L Neut % (Auto) 75.3 H Lymph % (Auto) 16.9 L Tift % (Auto) 7.3 Eos % (Auto) 0.2 L Baso % (Auto) 0.3 Neut # (Auto) 2700 Lymph # (Auto) 600 L Tift # (Auto) 300 Eos # (Auto) 0 Baso # (Auto) 0 Sodium 132 L Potassium 3.6 Chloride 103 Carbon Dioxide 24 BUN 15 Creatinine 0.44 L Estimated GFR > 60 BUN/Creatinine Ratio 34.1 H Glucose 140 H Calcium 8.4 Total Bilirubin 1.7 H AST 111 H ALT 86 H Alkaline Phosphatase 167 H Total Protein 6.7 Albumin 3.1 L Globulin 3.6 Albumin/Globulin Ratio 0.9 L HCV Quantitation Hcv not detected HCV RNA (PCR) IU log10 TNP Hepatitis C Genotype TNP Ref Test Comments Comment [facility] Medical History Chronic venous hypertension with ulcer Chronic, continuous use of opioids Obesity Type 2 diabetes mellitus Surgical History No pertinent past surgical history Family History Mother Breast cancer Father Diabetes mellitus Social History household members: other Smoking Status: Current every day smoker alcohol intake: former Discharge Plan Discharge Plan Patient Disposition: Home Provider Discharge Comment: Mr. Huertas was admitted with a leg infection. He improved with antibiotics. He will be discharged with 10 more days of antibiotics. He had two different bacteria causing his infection. Both were sensitive to augmentin, so he was discharged on this medication. He should follow up with wound clinic within one week, and he should find a PCP. Discharge orders & Medications Prescriptions: New amoxicillin-pot clavulanate 875-125 mg tablet 1 tab PO BID Qty: 20 0RF Continued methadone 10 mg Tablet 115 mg PO DAILY 0RF lisinopril 20 mg tablet 20 mg PO DAILY 0RF topiramate 25 mg tablet 50 mg PO DAILY 0RF metformin 1,000 mg tablet 1,000 mg PO DAILY 0RF Lantus Solostar U-100 Insulin 100 unit/mL (3 mL) insulin pen 40 unit SUBCUT BID 0RF Jardiance 25 mg tablet 25 mg PO DAILY 0RF prednisone 10 mg tablet 10 mg PO DAILY 0RF pentoxifylline 400 mg tablet extended release 400 mg PO TID 0RF Label Comments: TAKE ONE TABLET BY MOUTH THREE TIMES DAILY Follow up/Referrals: Bo Alexander [Primary Care Provider] - Charles Batres MD [Physician] - Diet/Activity/Treatments Diet: Regular Discharge Data Primary Care Provider: Bo Alexander Quality VTE Deep Vein Thrombosis/Pulmonary Embolism Present on Admission: No
== END 2021-12-01 13:02 | disposition home or self-care (01) | DRG 872 ==
LOC: ED 15:11 → AC 16:50
PROVIDERS: Admitting Provider Internal Medicine; Emergency Provider Nurse Practitioner Critical Care Medicine; PCP Family Medicine; Referring Provider Nurse Practitioner Critical Care Medicine; Visit Provider Internal Medicine
DX: A41.9 Sepsis, unspecified organism (principal); L03.116 Cellulitis of left lower limb; F11.20 Opioid dependence, uncomplicated; E87.1 Hypo-osmolality and hyponatremia; Z68.41 Body mass index [BMI] 40.0-44.9, adult; R65.20 Severe sepsis without septic shock; E80.6 Other disorders of bilirubin metabolism; D69.59 Other secondary thrombocytopenia; E87.6 Hypokalemia; E66.9 Obesity, unspecified; B19.20 Unspecified viral hepatitis C without hepatic coma; F17.210 Nicotine dependence, cigarettes, uncomplicated; E11.9 Type 2 diabetes mellitus without complications; B95.61 Methicillin susceptible Staphylococcus aureus infection as the cause of diseases classified elsewhere; B96.20 Unspecified Escherichia coli [E. coli] as the cause of diseases classified elsewhere; I10 Essential (primary) hypertension; Z79.4 Long term (current) use of insulin; Z79.84 Long term (current) use of oral hypoglycemic drugs; Z20.822 Contact with and (suspected) exposure to COVID-19
CPT/HCPCS: 36415; 73552; 73590; 73610; 73630; 73720; 76705; 80053; 80202; 81001; 82550; 82962; 83036; 83605; 83735; 84145; 84484; 85007; 85025; 85610; 85651; 86140; 86704; 86706; 86803; 87040; 87070; 87075; 87077; 87086; 87147; 87186; 87205; 87340; 87522; 87635; 93005; 94760; 96361; 96365; 96366; 96367; 99284; C9803; J0696; J0878; J1650; J1815; J1956; J2185

== ENCOUNTER → 2021-12-27 14:41 | Outpatient (CLI) | payer MEDICARE, MEDICAID, SELFPAY ==
[2021-11-28 18:12] VITALS: BMI 42.2
== END ==
PROVIDERS: PCP Family Medicine; Referring Provider Family Medicine; Visit Provider Family Medicine
DX: I87.2 Venous insufficiency (chronic) (peripheral) (principal); L97.322 Non-pressure chronic ulcer of left ankle with fat layer exposed; L97.522 Non-pressure chronic ulcer of other part of left foot with fat layer exposed; L97.822 Non-pressure chronic ulcer of other part of left lower leg with fat layer exposed; L97.512 Non-pressure chronic ulcer of other part of right foot with fat layer exposed; E11.621 Type 2 diabetes mellitus with foot ulcer; I89.0 Lymphedema, not elsewhere classified; Z72.0 Tobacco use; Z79.891 Long term (current) use of opiate analgesic; L03.116 Cellulitis of left lower limb; L08.9 Local infection of the skin and subcutaneous tissue, unspecified; L03.115 Cellulitis of right lower limb; R60.0 Localized edema
CPT/HCPCS: 11042; 87070; 87075; 87077; 87186; 87205; 99213; 99214

== ENCOUNTER → 2022-01-16 15:25 | Outpatient (CLI) | payer MEDICARE, MEDICAID, SELFPAY ==
[2021-11-28 18:12] VITALS: BMI 42.2
== END ==
PROVIDERS: PCP Family Medicine; Referring Provider Family Medicine; Visit Provider Family Medicine
DX: I87.2 Venous insufficiency (chronic) (peripheral) (principal); L97.322 Non-pressure chronic ulcer of left ankle with fat layer exposed; L97.822 Non-pressure chronic ulcer of other part of left lower leg with fat layer exposed; L97.522 Non-pressure chronic ulcer of other part of left foot with fat layer exposed; L97.512 Non-pressure chronic ulcer of other part of right foot with fat layer exposed; E11.621 Type 2 diabetes mellitus with foot ulcer; I89.0 Lymphedema, not elsewhere classified; R60.0 Localized edema; Z72.0 Tobacco use; Z79.891 Long term (current) use of opiate analgesic; F12.90 Cannabis use, unspecified, uncomplicated
CPT/HCPCS: 11042; 11045

== ENCOUNTER → 2022-01-23 11:00 | Outpatient (CLI) | payer MEDICARE, MEDICAID, SELFPAY ==
[2021-11-28 18:12] VITALS: BMI 42.2
== END ==
PROVIDERS: PCP Family Medicine; Referring Provider Nurse Practitioner; Visit Provider Nurse Practitioner
DX: Z53.20 Procedure and treatment not carried out because of patient's decision for unspecified reasons (principal)

== ENCOUNTER → 2022-02-07 11:50 | Outpatient (CLI) | payer MEDICARE, MEDICAID, SELFPAY ==
[2021-11-28 18:12] VITALS: BMI 42.2
== END ==
PROVIDERS: PCP Family Medicine; Referring Provider Nurse Practitioner; Visit Provider Family Medicine
DX: I87.2 Venous insufficiency (chronic) (peripheral) (principal); L97.322 Non-pressure chronic ulcer of left ankle with fat layer exposed; L97.822 Non-pressure chronic ulcer of other part of left lower leg with fat layer exposed; L97.522 Non-pressure chronic ulcer of other part of left foot with fat layer exposed; L97.512 Non-pressure chronic ulcer of other part of right foot with fat layer exposed; E11.621 Type 2 diabetes mellitus with foot ulcer; R60.9 Edema, unspecified; I89.0 Lymphedema, not elsewhere classified; Z72.0 Tobacco use; Z79.891 Long term (current) use of opiate analgesic
CPT/HCPCS: 17250; 99212